=== PATIENT | male | born 1945 | race Caucasian/White ===

== ENCOUNTER → 2016-04-28 | Outpatient (CLI) | payer BC ==
[~2016-04-28] MED LIST: ATOR-24 PO; LEVO125T72 PO; OXYC-57 PO; PSYL58.636 PO; [UNRECOGNIZED DRUG - OTHER] PO; vitamin e PO
[2016-04-28 11:05] LABS: HEMATOCRIT 45.8 % (42-52); MEAN CELL VOLUME 97.2 fL (80-100); MEAN CORPUSCULAR HEMOGLOBIN 33.8 pg (25-34); MEAN CORPUSCULAR HGB CONC 34.7 g/dl (32-36); MEAN PLATELET VOLUME 10.4 fL (7.4-10.4); PLATELET COUNT 202 K/uL (130-400); RED BLOOD COUNT 4.71 M/uL (4.7-6.1); WHITE BLOOD COUNT 3.26 K/uL (4.8-10.8)
[2016-04-28 11:24] LABS: ALT/SGPT 33 U/L (12-78); BLOOD UREA NITROGEN 21 mg/dl (7-18); BUN/CREATININE RATIO 18.7 (10-20); CALCIUM 9.4 mg/dl (8.5-10.1); CARBON DIOXIDE 27 mmol/L (21-32); CHLORIDE 106 mmol/L (98-107); CHOLESTEROL 190 mg/dl (0-200); GLUCOSE 107 mg/dl (70-99); POTASSIUM 4.3 mmol/L (3.5-5.1); SODIUM 142 mmol/L (136-145)
[2016-04-28 11:35] LABS: ALB/GLOB RATIO 1.1 (0.9-2); ALKALINE PHOSPHATASE 76 U/L (45-117); AST/SGOT 18 U/L (15-37); CHOLESTEROL/HDL RATIO 2.5; HDL CHOLESTEROL 77 mg/dl; LDL CHOLESTEROL CALCULATED 98 mg/dl; TRIGLYCERIDES 75 mg/dl (0-150); VERY LOW DENSITY LIPOPROT CALC 15 mg/dl
--- NOTE | 2016-05-03 15:15 | CODING QUERY MEDICAL NECESSITY ---
SUPPORTING DIAGNOSIS NEEDED 45 A supporting diagnosis is required for the test/procedure performed on this patient in order for us to be reimbursed by the patient's insurance. Please provide a supporting diagnosis for the following test/procedure listed below next to the test name along with your signature. *If there is no additional diagnosis for this patient that would support the following test/procedure please document that below next to the test/procedure. DOS 04/28/16 Test(s)/Procedure(s) that require a supporting diagnosis: * VITAMIN D, 25-HYDROXY DIAGNOSIS: Provider Signature: Date: Thank you Teri Payton Health Information Management Once completed, please kindly fax back to [phone] For questions please call [phone]
== END | disposition home or self-care (01) ==
LOC: C.LABBC 08:49
PROVIDERS: ATTEND Internal Medicine Geriatric Medicine
DX: E03.9 Hypothyroidism, unspecified (principal); I10 Essential (primary) hypertension; M19.90 Unspecified osteoarthritis, unspecified site; E78.5 Hyperlipidemia, unspecified

== ENCOUNTER 2016-08-12 06:50 | Day surgery (SDC) | payer BC ==
[2016-08-03 08:51] VITALS: BMI 26.0
--- NOTE | 2016-08-03 09:19 | PAT Medication Instructions ---
Service Date Aug 03, 2016. Current Home Medication List Atorvastatin (Lipitor), 40 MG PO QPM Levothyroxine Sodium (Synthroid), 125 MCG PO QAM Medication Instructions For Your Scheduled Surgery - Take the following medications the morning of surgery with a sip of water: Levothyroxine Sodium (Synthroid), 125 MCG PO QAM - Take the following medications as scheduled the night before surgery: Atorvastatin (Lipitor), 40 MG PO QPM If you have any questions please call us at [phone] or [phone] ( [place]) or [phone]
--- NOTE | 2016-08-03 09:47 | DIAGNOSTIC IMAGING REPORT ---
CHEST PREADMISSION(PA/LAT) CLINICAL HISTORY: PAT preoperative evaluation COMPARISON STUDY: No previous studies for comparison. FINDINGS: The bones soft tissues and hemidiaphragms are normal. The cardiomediastinal silhouette is normal. The lungs are clear. The pulmonary vasculature is normal. IMPRESSION: Negative chest. Electronically signed by: Rhett Carrero M.D. 08/03/2016 9:45 AM Dictated Date/Time: 08/03/2016 9:45 AM
[2016-08-03 09:53] LABS: BASO % 0.6 %; BASO ABS # 0.02 K/uL (0-0.2); COMPLETE YES; EOS % 4.8 %; HEMATOCRIT 43.9 % (42-52); IG% 0.3 %; LYMPH % 34.6 %; LYMPH ABS # 1.16 K/uL (1.2-3.4); MEAN CELL VOLUME 95.6 fL (80-100); MEAN CORPUSCULAR HEMOGLOBIN 33.3 pg (25-34); MEAN CORPUSCULAR HGB CONC 34.9 g/dl (32-36); MEAN PLATELET VOLUME 10.2 fL (7.4-10.4); MONO % 10.4 %; NEUT % 49.3 %; PLATELET COUNT 175 K/uL (130-400); RED BLOOD COUNT 4.59 M/uL (4.7-6.1); WHITE BLOOD COUNT 3.35 K/uL (4.8-10.8)
[2016-08-03 10:43] LABS: BUN/CREATININE RATIO 18.3 (10-20); CALCIUM 8.7 mg/dl (8.5-10.1); CREATININE 0.87 mg/dl (0.60-1.40); POTASSIUM 3.9 mmol/L (3.5-5.1)
[~2016-08-12] VITALS: Ht 177.8 cm; Wt 83.1 kg
[~2016-08-12 06:50] MED LIST changes: +LACTATED RINGER'S 1000ML 1,000 ML IV SCH; -OXYC-57 PO; -PSYL58.636 PO; -[UNRECOGNIZED DRUG - OTHER] PO; -vitamin e PO
[2016-08-12] MEDS ORDERED: PSYL58.636 PO (07:20)
[2016-08-12] MEDS ORDERED: vitamin e PO (07:20)
[2016-08-12] MEDS ORDERED: [UNRECOGNIZED DRUG - OTHER] PO (07:20)
[2016-08-12 07:21] VITALS: BP 153/91; PULSE 55; TEMP 36.5; O2SAT 94; Ht 177.8 cm; Wt 83.1 kg
[2016-08-12] MEDS ORDERED: LACTATED RINGER'S 1000ML 1,000 ML IV PRN (07:46)
[2016-08-12] MEDS ORDERED: KETOROLAC TROMETHAMINE 30 MG/ML VIAL IV. PRN (08:00)
[2016-08-12] MEDS ORDERED: ONDANSETRON INJ 2 MG/ML 2 ML VIAL IV PRN ×2 (08:00→10:30)
[2016-08-12] MEDS ORDERED: MoRPHine SULFATE 10 MG/ML CARP/VIAL IV PRN (08:00)
[2016-08-12] MEDS ORDERED: FENTANYL CITRATE INJ 50 MCG/1 ML 2 ML VIAL IV PRN (08:00)
--- NOTE | 2016-08-12 09:01 | History & Physical Bridge Note ---
H&P Re-Evaluation Bridge Note: I have examined the patient, reviewed the History & Physical and in the interval since the performance of the History & Physical I have noted the following changes of clinical significance: No changes noted pt marked at bedside area already shaved no skin irritation, discussed with pt earlier no mesh he is afraid of triggering autoimmune response from mesh
[2016-08-12] MEDS ORDERED: OXYC-57 PO (09:03)
--- NOTE | 2016-08-12 09:05 | Discharge Instructions ---
Discharge Instructions Date of Service Aug 12, 2016. Visit Reason for Visit: Right Inguinal Hernia Discharge Discharge Diagnosis / Problem: inguinal hrnia repair Discharge Goals Goal(s): Decrease discomfort Activity Recommendations Activity Limitations: as noted below Lifting Limitations: no more than 10 pounds Shower/Bathe: tomorrow Driving or Machine Use: 1 week Anesthesia . Post Anesthesia Instructions: If you have had General Anesthesia or IV Sedation: * Do not drive today. * Resume driving when surgeon permits. * Do not make important decisions or sign legal documents today. * Call surgeon for: 1. Temperature elevations greater than 101 degrees F. 2. Uncontrollable pain. 3. Excessive bleeding. 4. Persistent nausea and vomiting. 5. Medication intolerance (nausea, vomiting or rash). * For nausea and vomiting use only clear liquids such as: tea, soda, bouillon until nausea subsides, then gradually increase diet as tolerated. * If you have any concerns or questions, call your surgeon's office. If physician is unavailable and it is an emergency, call 911 or go to the nearest emergency room. . Instructions / Follow-Up Instructions / Follow-Up Dr. Kong office in 1 week, call [phone] if you do not already have an appt Ice right groin alternating every 20 minutes off and on until bedtime Diet Recommendations Recommended Home Diet: no limitations Pending Studies Studies pending at discharge: no Medical Emergencies . Who to Call and When: Medical Emergencies: If at any time you feel your situation is an emergency, please call 911 immediately. . Non-Emergent Contact Non-Emergency issues call your: Surgeon Call Non-Emergent contact if: you have a fever, temperature is above 101.5, your pain is not controlled, wound has increased redness . . "Provider Documentation" section prepared by Jose Au. . [place] Drug Monitoring Program Search Results: no issues identified
[2016-08-12] MEDS ORDERED: MIDAZOLAM HCL 1 MG/ML 2ML VIAL ONE ×2 (09:07→15:25)
[2016-08-12] MEDS ORDERED: ROCURONIUM BROMIDE 10 MG/ML 5 ML VIAL ONE ×2 (09:07→16:22)
[2016-08-12] MEDS ORDERED: FENTANYL CITRATE INJ 50 MCG/1 ML 2 ML VIAL ONE ×2 (09:07→15:25)
[2016-08-12] MEDS ORDERED: LIDOCAINE HCL 2% 2 ML VIAL (20MG/ML) ONE ×2 (09:07→16:22)
[2016-08-12] MEDS ORDERED: NEOSTIGMINE METHYLSULFATE 5 MG/5 ML SYR ONE (09:07)
[2016-08-12] MEDS ORDERED: PROPOFOL IV EMULSION 10 MG/ML 20 ML VIAL IV ONE ×2 (09:07→16:22)
[2016-08-12] MEDS ORDERED: GLYCOPYRROLATE INJ 0.2 MG/ML VIAL ONE (09:07)
[2016-08-12] MEDS ORDERED: BACITRACIN 50000 UNIT VIAL ONE (09:15)
[2016-08-12] MEDS ORDERED: BUPIVACAINE 0.5 % 5 MG/1 ML MPF 30ML VIAL ONE (09:15)
[2016-08-12] MEDS ORDERED: KETOROLAC TROMETHAMINE 30 MG/ML VIAL ONE (10:04)
[2016-08-12] MEDS ORDERED: LACTATED RINGER'S 1000ML 1,000 ML IV SCH (10:17)
--- NOTE | 2016-08-12 10:18 | [facility] Post Operative Brief Note ---
Immediate Operative Summary Operative Date Aug 12, 2016. Pre-Operative Diagnosis Right inguinal hernia Post-Operative Diagnosis Right inguinal hernia direct Procedure(s) Performed Open Right Inguinal Hernia Repair(jitendra) Surgeon Dr. Hi Fuentes Sponsorship Coordinator Surgeon(s) Jose Au PA-C Estimated Blood Loss 5ML Findings large direct defect Specimens None per surgeon
[2016-08-12] MEDS ORDERED: OXYCODONE/ACETAMINOPHEN 5-325 TAB PO PRN (10:30)
[2016-08-12] MEDS ORDERED: MoRPHine SULFATE 4 MG/ML 1 ML CARP\\VIAL IV PRN (10:30)
--- NOTE | 2016-08-12 10:43 | OPERATIVE REPORT ---
DATE OF OPERATION: 08/12/2016 PREOPERATIVE DIAGNOSIS: Symptomatic right inguinal hernia. POSTOPERATIVE DIAGNOSIS: Same with large direct defect. PROCEDURE: Repair right direct inguinal hernia (Bassini repair). SURGEON: Dr. Fuentes. PAPER CARRIER: Roderick Au PA-C. OPERATION AND FINDINGS: SUMMARY: The patient was brought into the operating room theater. The right lower quadrant was prepped with Betadine solution and properly draped. We made an incision parallel to the inguinal ligament, deepened through subcutaneous tissue onto the external oblique. Local anesthetic was used underneath the external oblique, which was opened along the course of its fibers to the external ring where we identified a very chronically incarcerated tissue at the external ring. We dissected it out and actually the ilioinguinal nerve which was a fine brand, very thin was encapsulated in the scar tissue. Rather than save it eventually we would just sacrifice it. At this point, once we freed this, we elevated the cord and its structures and identified the patient had a direct hernia. We freed that from the cord structures all the way down to the internal ring. We checked for an indirect defect. The patient had fibrous band going down along the cord structures which may be a remnant of the indirect sac, we just basically ligated and divided this. At this point the patient did not want any mesh placement in the hernia suspicious that it may trigger an autoimmune response problem, therefore we identified the transversalis fascia and did a Bassini repair bringing together the shelving portion of the inguinal ligament to the transversalis fascia with interrupted 0 silk sutures. We then reconstructed the internal ring sufficient enough. The fascia here was a little bit weaker, but we were able to close some conjoined tendon around the internal ring. We put some sutures even lateral to the opening that could only accommodate the tip of a hemostat. The patient was under general anesthetic, but then I elected to make a relaxing incision on top of the rectus abdominis in a curvilinear fashion. The repair appeared to be quite solid repair. We checked the area for hemostasis, appeared satisfactory. We closed the wound with 3-0 silk suture to reconstruct the external ring, placing the cord underneath the external oblique, subcutaneous tissue 2-0 Dexon and zari for skin edges. Dressing was applied. The procedure was tolerated well by the patient. Estimated blood loss approximately 5 mL. The patient was taken to recovery room in good condition. I attest to the content of the Intraoperative Record and any orders documented therein. Any exceptions are noted below. MTDD
--- NOTE | 2016-08-12 10:50 | Anesthesiology Progress Note ---
Anesthesia Post Op Note Date & Time Aug 12, 2016 at 10:49 Vital Signs Pain Intensity: 0 Vital Signs Past 12 Hours Date Time Temp Pulse Resp B/P Pulse Ox O2 Delivery O2 Flow Rate FiO2 08/12/16 10:40 43 16 149/89 100 Mask 10 08/12/16 10:30 44 16 164/91 100 Mask 10 08/12/16 10:23 36 49 16 164/94 96 Mask 10 08/12/16 07:21 36.5 55 18 153/91 94 Room Air Notes Mental Status: alert / awake / arousable, participated in evaluation Pt Amnestic to Procedure: Yes Nausea / Vomiting: adequately controlled Pain: adequately controlled Airway Patency, RR, SpO2: stable & adequate BP & HR: stable & adequate Hydration State: stable & adequate Anesthetic Complications: no major complications apparent Pt doing well.
[2016-08-12 11:00] VITALS: BP 154/84; PULSE 56; TEMP 36.6; O2SAT 94
[2016-08-12 11:35] VITALS: BP 148/89; PULSE 44; O2SAT 96
[2016-08-12 12:05] VITALS: BP 155/91; PULSE 44; TEMP 36.4; O2SAT 97
[2016-08-12] MEDS ORDERED: SUCCINYLCHOLINE CHLORIDE 20 MG/ML 10 ML VIAL IV ONE (16:22)
[2016-08-12] MEDS ORDERED: EpHEDrine SULFATE INJ 50 MG/ML AMP ONE (16:22)
[2016-08-12] MEDS ORDERED: DEXAMETHASONE SOD INJ 4 MG/ML VIAL ONE (16:22)
[2016-08-12] MEDS ORDERED: CEFAZOLIN SOD 1 GM VIAL ONE (16:22)
[2016-08-12] MEDS ORDERED: ONDANSETRON INJ 2 MG/ML 2 ML VIAL ONE (16:22)
== END 2016-08-12 12:30 | disposition home or self-care (01) ==
LOC: C.ACU 06:50
PROVIDERS: ATTEND Surgery
DX: K40.90 Unilateral inguinal hernia, without obstruction or gangrene, not specified as recurrent (principal); M19.90 Unspecified osteoarthritis, unspecified site; E78.5 Hyperlipidemia, unspecified; I10 Essential (primary) hypertension; E03.9 Hypothyroidism, unspecified; Z96.642 Presence of left artificial hip joint; Z82.49 Family history of ischemic heart disease and other diseases of the circulatory system

== ENCOUNTER 2016-08-12 15:47 | Emergency (ER) | payer BC ==
[~2016-08-12] VITALS: Ht 177.8 cm; Wt 85.0 kg
[~2016-08-12 15:47] MED LIST changes: -LACTATED RINGER'S 1000ML 1,000 ML IV SCH; +OXYC-57 PO; +PSYL58.636 PO; +[UNRECOGNIZED DRUG - OTHER] PO; +vitamin e PO
[2016-08-12 15:53] VITALS: Ht 177.8 cm; Wt 85.0 kg
[2016-08-12 16:06] LABS: BASO % 0.2 %; BASO ABS # 0.02 K/uL (0-0.2); COMPLETE YES; EOS % 0.6 %; HEMATOCRIT 39.1 % (42-52); IG% 0.2 %; LYMPH % 9.4 %; LYMPH ABS # 1.05 K/uL (1.2-3.4); MEAN CELL VOLUME 98.5 fL (80-100); MEAN CORPUSCULAR HEMOGLOBIN 33.5 pg (25-34); MEAN PLATELET VOLUME 9.7 fL (7.4-10.4); MONO % 8.3 %; NEUT % 81.3 %; PLATELET COUNT 183 K/uL (130-400); RED BLOOD COUNT 3.97 M/uL (4.7-6.1); WHITE BLOOD COUNT 11.22 K/uL (4.8-10.8)
[2016-08-12] MEDS ORDERED: LACTATED RINGER'S 1000ML 1,000 ML IV SCH (16:46)
[2016-08-12] MEDS ORDERED: MoRPHine SULFATE 4 MG/ML 1 ML CARP\\VIAL IV PRN (17:00)
[2016-08-12] MEDS ORDERED: ONDANSETRON INJ 2 MG/ML 2 ML VIAL IV PRN (17:00)
[2016-08-12] MEDS ORDERED: OXYCODONE/ACETAMINOPHEN 5-325 TAB PO PRN (17:00)
--- NOTE | 2016-08-12 17:00 | [facility] Post Operative Brief Note ---
Immediate Operative Summary Operative Date Aug 12, 2016. Pre-Operative Diagnosis post op bleeding s/p open right ing hernia repair(jitendra) Post-Operative Diagnosis same form inferior epigastric vein and generalized oozing Procedure(s) Performed evacUATION HEMAOTOMA RIGHT ING CANAL AND SCROTUM Surgeon alba Post Anesthesia Room Nurse Surgeon(s) barbara rhodes Estimated Blood Loss 50 Findings generalized oozing but more specific loc bleeding from inf epigastric vein Drains 1/2inch raman scrotal area
[2016-08-12 18:10] VITALS: BP 152/91; PULSE 55; TEMP 36.4; O2SAT 98
[2016-08-12] MEDS ORDERED: IV FLUIDS COMPLETED PRN (19:00)
[2016-08-13] MEDS ORDERED: LEVOTHYROXINE 125 MCG TAB PO SCH (07:00)
== END 2016-08-12 15:57 | disposition still patient (30) ==
LOC: EDBD 15:47 → C.EDC 15:48
DX: R58 Hemorrhage, not elsewhere classified (principal)

== ENCOUNTER 2016-08-12 17:50 | Observation (INO) | payer BC ==
[~2016-08-12] VITALS: Ht 177.8 cm; Wt 86.0 kg
[2016-08-12] VITALS (7 sets, daily range): BP systolic 127–152; BP diastolic 73–91; PULSE 55–63; TEMP 36.1–36.9; O2SAT 92–99; Ht 177.8 cm; Wt 86.0 kg
--- NOTE | 2016-08-12 15:53 | History & Physical Bridge Note ---
H&P Re-Evaluation Bridge Note: I have examined the patient, reviewed the History & Physical and in the interval since the performance of the History & Physical I have noted the following changes of clinical significance: No changes noted events since pt d/ c from hernia repair this am dictated at 3:40 pm ext [id number] confirmation number [id number], plan emergency exploration for post op bleeding in groin
--- NOTE | 2016-08-12 16:22 | HISTORY & PHYSICAL EXAMINATION ---
DATE OF ADMISSION: 08/12/2016 SUMMARY: This is a 70-year-old gentleman who about 9:00 this morning we repaired a right inguinal hernia and a Bassini repair without mesh, went uneventful, was discharged about 10:00 in the morning or so without any issues, was home then they called approximately at 1:30 in the afternoon that he was having some bleeding from the right groin area and his scrotum was enlarging. This happened kind of suddenly after getting out of car. Therefore , I saw him in the office at that time where on evaluation, he had a hematoma in his right groin extending into the scrotum, which did not seem to be tense at all. At this point, I took a few zari out to see if we can evacuate this hematoma and it seemed to be a continuous venous bleeder, held pressure on it, but without any success; therefore, I packed it and applied the pressure dressing, call the operating room at approximately 2:50 that would recommend that the patient be explored in the surgery to control the bleeding. At that time, arrangements were made to bring the patient over to the hospital. Initially, the patient wanted to come by a car, he felt he could do that, I was on my way to the hospital where I got a call in the office saying they wanted to go by ambulance. I came by the Emergency Room talked with the claims customer service representative in the ER about this gentleman was supposed to come in by ambulance and to sent him straight the same day admit, to take him to surgery. At about 3:35 I was told that the patient could not come straight to the same day surgery because of the policy they could not come to same day surgery, if it is a hemorrhage they needed to go straight to the operating room. At this time, it is 3:50, I am still waiting for the patient to come in and we will take him straight to the operating room. Apparently by policy, the patient that comes in by ambulance cannot come straight to the same day admit unless the ER physician sees it or I needed to go to ER and see him personally even though I saw him personally minor 1/2 before. I did see the patient in the office and I was trying to arrange things here in the operating room to expedite things. At the present time, we are still waiting for the patient. INES
--- NOTE | 2016-08-12 17:43 | Anesthesiology Progress Note ---
Anesthesia Post Op Note Date & Time Aug 12, 2016 at 17:42 Vital Signs Pain Intensity: 0 Vital Signs Past 12 Hours Date Time Temp Pulse Resp B/P Pulse Ox O2 Delivery O2 Flow Rate FiO2 08/12/16 17:29 36.5 49 16 145/86 100 Nasal Cannula 2 08/12/16 17:20 52 16 169/83 100 Nasal Cannula 2 08/12/16 17:10 52 18 142/72 99 Mask 10 08/12/16 17:00 59 18 136/84 100 Mask 10 08/12/16 16:51 36.1 63 16 133/79 98 Mask 10 Notes Mental Status: alert / awake / arousable, participated in evaluation Pt Amnestic to Procedure: Yes Nausea / Vomiting: adequately controlled Pain: adequately controlled Airway Patency, RR, SpO2: stable & adequate BP & HR: stable & adequate Hydration State: stable & adequate Anesthetic Complications: no major complications apparent
[~2016-08-12 17:50] MED LIST changes: +ATROPINE SULFATE 0.1 MG/ML 5ML SYR IV PRN; +BACITRACIN 50000 UNIT VIAL ONE; +BUPIVACAINE 0.5 % 5 MG/1 ML MPF 30ML VIAL ONE; +EpHEDrine SULFATE INJ 50 MG/ML AMP IV PRN; +FENTANYL CITRATE INJ 50 MCG/1 ML 2 ML VIAL IV PRN; +HYDROmorphone INJ 1 MG/ML SYR IV PRN; +LACTATED RINGER'S 1000ML 1,000 ML IV SCH; +ONDANSETRON INJ 2 MG/ML 2 ML VIAL IV PRN; +OXYCODONE/ACETAMINOPHEN 5-325 TAB PO PRN; +SURGICEL ABSORB HEMOSTAT 2IN X 14IN TOP ONE
[2016-08-12] MEDS ORDERED: OXYCODONE/ACETAMINOPHEN 5-325 TAB PO PRN (18:00)
[2016-08-12] MEDS ORDERED: HYDROmorphone INJ 1 MG/ML SYR IV PRN (18:00)
[2016-08-12] MEDS ORDERED: IV FLUIDS COMPLETED PRN (18:30)
[2016-08-12] MEDS: LACTATED RINGER'S 1000ML 1,000 ML IV SCH (20:12)
--- NOTE | 2016-08-12 23:15 | OPERATIVE REPORT ---
DATE OF OPERATION: 08/12/2016 SURGEON: Dr. Fuentes. PLASTERER ROUGH: Roderick Au PA-C. PREOPERATIVE DIAGNOSIS: Postop bleeding from the right inguinal hernia repair (Bassini repair). POSTOPERATIVE DIAGNOSIS: Same, generalized oozing and bleeding from the inferior epigastric vessels. PROCEDURE: Exploration of right groin, evacuation of hematoma, control of bleeding. SUMMARY: The patient was brought into the operating room theater, general anesthetic. The right lower quadrant had been prepped after we took the dressing that we had placed in the office. In the office, I tried to evacuate this hematoma which appeared to be nonexpanding, but we were met with some oozing from the mid portion of the incision. Being this oozing, I just packed it in anticipation to take him to surgery. we had applied pressure dressing on the outside. Once we were in the operating room, we took the dressing off and there was no oozing from the packing itself. At this point, we used Betadine solution and prepped extensively in the scrotal area. [place] were removed, the packing was removed. The area was then evacuated off a hematoma. There was some subcutaneous hematoma but most of it was when we went onto the external oblique fascia. The lateral aspect of the external oblique fascia where we had closed over the cord was opened and we could see some hematoma formation and clots in that area. We opened up completely the external oblique as we had closed it with interrupted silk sutures, and once we elevated the cord and the structures, we freed up all the hematoma and clots from that area and evacuated the one from the scrotal area. At this point, we did not see any active bleeding, although just generalized oozing. We irrigated the area copiously to try to get the operative site free of any cloths and visualized the operative field more extensively. Once we had done this, we localized that in the internal ring area, there was 1 suture that we had closed the internal ring, and elevating the cord structures, we could see some bleeding coming from the suture, it was the most proximal suture in the internal ring. As we opened that, I could see that there was a small vein, probably either an inferior epigastric vein or a branch of it that was linearly cut. This is probably from the suture that may have pulled away on it and actively caused the bleeding. This was the only site of bleeding that we could account for in all exploration. We ligated this area. I did unroof and took up more of the sutures from the Bassini repair so we could go toward the symphysis pubis and I did not see any active bleeding underneath that area. We then closed this again with interrupted 0 silk suture, paying attention to close the internal ring. We evacuated the scrotal area copiously. There were few fibers just distal to the external ring that we ligated with 2-0 silk suture. We also went underneath the external oblique where we had done a relaxing incision on the rectus, there was no oozing appreciated there, but I did place a piece of Surgicel in that area. I also placed a piece of Surgicel down in the canal and elected to drain the scrotal area with a small quarter-inch to half inch incision and placed a [place] that we had used to elevate the cord structures along underneath the external oblique fascia and coming out the scrotal area, attached to skin edge with 2-0 silk. The area was then again checked for hemostasis, quite satisfactory, and closed with continuous 2-0 Vicryl subcutaneously, zari for skin edges. Local anesthetic was used to place in the operative field. The procedure was tolerated well by the patient. Estimated blood loss approximately 50 mL. The patient was taken to recovery room in good condition. I attest to the content of the Intraoperative Record and any orders documented therein. Any exceptions are noted below. INES
[2016-08-13] MEDS: LACTATED RINGER'S 1000ML 1,000 ML IV SCH ×2 (02:40→09:28)
[2016-08-13 07:07] LABS: BASO % 0.1 %; BASO ABS # 0.01 K/uL (0-0.2); COMPLETE YES; HEMATOCRIT 33.4 % (42-52); IG% 0.2 %; LYMPH % 10.2 %; LYMPH ABS # 0.93 K/uL (1.2-3.4); MEAN CELL VOLUME 97.9 fL (80-100); MEAN CORPUSCULAR HEMOGLOBIN 33.1 pg (25-34); MEAN CORPUSCULAR HGB CONC 33.8 g/dl (32-36); MEAN PLATELET VOLUME 9.8 fL (7.4-10.4); MONO % 9.8 %; NEUT % 79.7 %; PLATELET COUNT 155 K/uL (130-400); RED BLOOD COUNT 3.41 M/uL (4.7-6.1)
--- NOTE | 2016-08-13 07:33 | SURGERY PROGRESS NOTE ---
DATE: 08/13/2016 Harpal is fairly comfortable. Surgery from yesterday was explained to the patient including its findings. His last vitals showed him a temperature of 36.9, pulse 61, respirations 16, blood pressure 136/73, O2 sats 94 on room air. He is having virtually no pain. Laboratory finding is pending. The abdomen is benign. The dressing is slightly saturated in the scrotal area which is soft. He has a [place] drain, just slightly bloody drainage. At this point, we will await the lab, the patient and looks fine, he will probably be able to go home today. We will check him later on today and remove the Jake. Instructions were given to him regarding followup in approximately 1 week. He can shower and also do not lift anything heavier than 10 pounds and restrict him somewhat on his activity. INES
[2016-08-13 07:54] VITALS: O2SAT 94
[2016-08-13 08:01] VITALS: BP 158/79; PULSE 65; TEMP 36.5; O2SAT 95
--- NOTE | 2016-08-13 08:22 | Anesthesiology Progress Note ---
Anesthesia Post Op Note Date & Time Aug 13, 2016 at 08:21 Vital Signs Pain Intensity: 0.0 Vital Signs Past 12 Hours Date Time Temp Pulse Resp B/P Pulse Ox O2 Delivery O2 Flow Rate FiO2 08/13/16 08:01 36.5 65 18 158/79 95 Room Air 08/13/16 07:54 94 Room Air 08/12/16 23:42 Room Air 08/12/16 23:03 36.9 61 16 136/73 94 Room Air 08/12/16 21:10 36.7 63 18 127/82 92 Room Air Notes Mental Status: alert / awake / arousable, participated in evaluation Pt Amnestic to Procedure: Yes Nausea / Vomiting: adequately controlled Pain: adequately controlled Airway Patency, RR, SpO2: stable & adequate BP & HR: stable & adequate Hydration State: stable & adequate Anesthetic Complications: no major complications apparent
--- NOTE | 2016-08-13 09:55 | Discharge Instructions ---
Discharge Instructions Date of Service Aug 13, 2016. Admission Reason for Admission: Inguinal Post-op Site Bleed Discharge Discharge Diagnosis / Problem: wound exploration, evacuation of hematoma Discharge Goals Goal(s): Decrease discomfort Activity Recommendations Activity Limitations: as noted below Lifting Limitations: no more than 10 pounds Shower/Bathe: no limitations (ok to shower) Driving or Machine Use: resume 3 days after discharge . Instructions / Follow-Up Instructions / Follow-Up Dr. Fuentes's office next week as planned Current Hospital Diet Patient's current hospital diet: Regular Diet Discharge Diet Recommended Diet: Regular Diet Procedures Procedures Performed: Right inguinal hernia controlled postop hemorrhage Pending Studies Studies pending at discharge: no Medical Emergencies . Who to Call and When: Medical Emergencies: If at any time you feel your situation is an emergency, please call 911 immediately. . Non-Emergent Contact Non-Emergency issues call your: Surgeon Call Non-Emergent contact if: you have a fever, temperature is above 101.5, your pain is not controlled, wound has increased drainage, wound has increased redness . "Provider Documentation" section prepared by Jose Au. . VTE Core Measure Inpt VTE Proph given/why not?: SCD's
[2016-08-13 10:49] VITALS: BP 158/79; PULSE 65; TEMP 36.5; O2SAT 95
--- NOTE | 2016-08-17 14:41 | DISCHARGE SUMMARY ---
PRIMARY DISCHARGE DIAGNOSIS: Postoperative bleeding following right inguinal hernia repair. SECONDARY DISCHARGE DIAGNOSES: 1. Hypertension. 2. Hypothyroidism. PROCEDURE PERFORMED: Exploration of right groin, evacuation of hematoma and control of bleeding. HOSPITAL COURSE: The patient is a 70-year-old male who underwent repair of right inguinal hernia (Bassini repair) in the morning. He was discharged to home. Once at home, he felt a pull in his groin, developed swelling in the scrotum and groin. He was seen in the office, where hematoma was identified and he was referred back to the hospital and was taken through the Emergency Room back to the operating room for exploration, evacuation of hematoma, control bleeding. He was admitted to the surgical floor for overnight observation. On postoperative day 1, he was doing well. He had minimal drainage from a [place] drain which was removed. He was tolerating diet and oral analgesics. He was stable for discharge. DISCHARGE INSTRUCTIONS: Discharge home. Follow up with Dr. Fuentes's office in 5 days. DISCHARGE MEDICATIONS: Resume Percocet 1-2 tablets every 4 hours as needed, Synthroid 125 mcg daily, Lipitor 40 mg daily, Metamucil fiber daily, vitamin E and D supplements.
== END 2016-08-13 11:19 | disposition home or self-care (01) ==
LOC: ENRESERVTM → ENRESERVDT → C.ACU 17:50 → C.MSW 17:51
PROVIDERS: ADMIT Surgery; ATTEND Surgery
DX: L76.32 Postprocedural hematoma of skin and subcutaneous tissue following other procedure (principal)

== ENCOUNTER → 2016-09-20 | Outpatient (CLI) | payer BC ==
[~2016-09-20] MED LIST changes: -ATROPINE SULFATE 0.1 MG/ML 5ML SYR IV PRN; -BACITRACIN 50000 UNIT VIAL ONE; -BUPIVACAINE 0.5 % 5 MG/1 ML MPF 30ML VIAL ONE; -EpHEDrine SULFATE INJ 50 MG/ML AMP IV PRN; -FENTANYL CITRATE INJ 50 MCG/1 ML 2 ML VIAL IV PRN; -HYDROmorphone INJ 1 MG/ML SYR IV PRN; -LACTATED RINGER'S 1000ML 1,000 ML IV SCH; -ONDANSETRON INJ 2 MG/ML 2 ML VIAL IV PRN; -OXYCODONE/ACETAMINOPHEN 5-325 TAB PO PRN; -SURGICEL ABSORB HEMOSTAT 2IN X 14IN TOP ONE
[2016-09-29 20:52] LABS: APTT 32 sec (22-34); F8 ACT 74 % (50-180); RISTOCETIN COFACTOR** 4459X 56 % (42-200)
== END | disposition home or self-care (01) ==
LOC: C.LABBC 08:20
PROVIDERS: ATTEND Internal Medicine Geriatric Medicine
DX: T14.8 Other injury of unspecified body region (principal); X58.XXXA Exposure to other specified factors, initial encounter

== ENCOUNTER 2024-04-09 19:41 | Inpatient (IN) ==
--- NOTE | 2024-04-09 20:23 | Emergency Department Note ---
Impression & Plan Near syncope, S/P TAVR (transcatheter aortic valve replacement) ED Provider Note NAME: DINESH PATRICIA AGE: 78 SEX: M : 1945 ARRIVES VIA: Walk-In INFORMANT: [Patient][] ED PROVIDER(S): [Sly Wu MD] CHIEF COMPLAINT: Cardiac assessment HISTORY OF PRESENT ILLNESS: The patient is a 78-year-old male who had a TAVR performed last , 4 days ago. He was discharged from the hospital 3 days ago. The patient did have a temporary pacemaker and as per his but, the heart rhythm was not really any issue and thus, it was discontinued. He is wearing a software application tester. The patient states that today, he has been feeling dizzy intermittently. He had a brief syncopal spell, this lasted for a few seconds. No chest pain, no dyspnea. He was called by the people who are in charge of his monitor and he was told that he had an AV block and that he would likely need a pacemaker. He was on his way to [place] however, he was concerned about making the longer drive and he presents to our ER. Of note, patient's brother had a very similar operation and required pacemaker placement. PMHx/PSHx/Social Hx: See Below PHYSICAL EXAM: GENERAL: Patient is in no acute distress. HEENT: No acute trauma, normocephalic atraumatic, mucous membranes moist, no nasal congestion. NECK: No stridor, no adenopathy, no meningismus, trachea is midline. LUNGS: Clear to auscultation bilaterally, no wheeze, no rhonchi, breath sounds equal. HEART: Without murmurs gallops or rubs, regular rate and rhythm. ABDOMEN: Soft, nontender, no peritonitis. EXTREMITIES: No cyanosis, full range of motion of all the joints without pain or difficulty. NEUROLOGIC: Oriented x 3, no acute motor or sensory deficits, no focal weakness. SKIN: No jaundice, no diaphoresis. DIFFERENTIAL DIAGNOSIS: Dysrhythmia, AV block, medication reaction, NM, electrolyte imbalance, among others. EMERGENCY DEPARTMENT PROCEDURES: MEDICAL DECISION MAKING: There is no leukocytosis or concerning anemia. The patient does have a somewhat low platelet count at 110. No coagulopathy. No electrolyte abnormality in need of emergent correction. No renal failure. No concerning liver enzyme elevation. TSH was slightly low however, the T4 was normal. ECG shows a sinus rhythm with a first-degree AV block, no dysrhythmia. Cardiac enzyme testing x 2 is slightly elevated however, the value is actually decreasing and very likely a result of his recent TAVR rather than cardiac ischemia. Chest x-ray does not show CHF or pneumonia. On exam, the patient was without complaints and resting comfortably. I did speak with Dr. Miller of cardiology. The patient is to be hospitalized for monitoring. He may require a pacemaker if a significant dysrhythmia or block is detected. The patient is aware of the need for a hospital stay. I did speak with case management and the on-call hospitalist. Prior/Outside records/notes reviewed: None ECG per my interpretation: Indication was dizziness. The ECG shows a sinus rhythm with a first-degree AV block and an incomplete right bundle branch block. The rate is 67. There is no acute ST elevation. There is poor R wave progression with a potential old septal infarct. QTc is 441. Continuous Cardiac Monitoring per my interpretation: An order was placed for continuous cardiac monitoring. The monitor shows a rate of 65 with sinus rhythm with a first-degree block. Imaging/x-ray results per my interpretation: Chest x-ray does not show mediastinal widening, CHF or pneumonia. Chronic Medical/Social conditions affecting care: Recent TAVR. Care/Management discussed with: On-call cardiology-Dr. Miller. Case management and the on-call hospitalist. Level of care consideration(s): After review of the information above and other included data: --I believe the patient requires escalation of care to admission DISPOSITION: Admission Past Med/Surg History Problem List (Updated 04/09/24 @ 23:07 by Sly Wu MD) S/P TAVR (transcatheter aortic valve replacement) (Acute) Near syncope (Acute) Erectile dysfunction Benign prostatic hyperplasia with urinary obstruction and other lower urinary tract symptoms (Acute) Medical History Chronic sinusitis Nasal septal deviation History of COVID-19 (07/2023) Symptoms resolved Chronic osteoarthritis Aortic stenosis Echo 02/09/24: Severe aortic stenosis (AVAI 0.55cm2, AV MG 42mmhg) Follows with Dr. Mensah Moderate obstructive sleep apnea Not currently using any device, unable to tolerate CPAP GERD (gastroesophageal reflux disease) Hypothyroidism History of radioactive iodine thyroid ablation Bruxism HLD (hyperlipidemia) HTN (hypertension) Psoriasis Surgical History (Updated 04/09/24 @ 23:07 by Sly Wu MD) History of colonoscopy History of evacuation of hematoma Groin S/P knee surgery Right S/P inguinal hernia repair S/P hip replacement Left S/P cataract surgery Family History Father Acute myocardial infarction Hypertension Cardiac disorder Sister Thyroid disorder Son Epilepsy Daughter Von Willebrand disease, type I Other Myocardial infarction Denies family history of Ovarian cancer Prostate cancer Breast cancer Lung cancer Colorectal cancer Social History Smoking Status: Light tobacco smoker Second Hand Exposure: No; Do You Dip or Chew Tobacco: No; Hx Alcohol Use: Yes Alcohol type: beer Alcohol Intake Frequency: 4 or More x per/Week Hx Substance Use: No Preferred Language: Bengali Communication Ability: Effective Visual Impairment: Limited Hearing Ability: Normal Director Ship Required: No Beliefs That Will Affect Care: None marital status: Current Living Situation: Spouse current occupational status: employed and retired 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 How many Children do You have: 3 Feels Safe at Home: Yes Childhood Exposure to Second-Hand Smoke: Yes (father smoked cigars ) Diet: regular caffeine: Yes Dental Care, Regularly: Yes Physical Activity Frequency: Daily Physical Activity Frequency Comment: bicycles/walk Seatbelt Use: always Sunscreen Use: Yes (sometimes) Assistive Devices: Glasses Allergies Allergies Allergy/AdvReac Type Severity Reaction Status Date / Time No Known Drug Allergies Allergy Verified 03/28/24 08:29 Home Meds Home Medications Medication Instructions Recorded Confirmed rosuvastatin 20 mg tablet 20 mg PO DAILY 02/15/24 03/28/24 Previous Rx's Medication Instructions Recorded sildenafil 50 mg tablet See Rx Instructions .Route 05/30/23 .COMPLEX #6 tabs amlodipine 5 mg tablet 5 mg PO QAM #90 tabs 10/13/23 levothyroxine 125 mcg tablet 125 mcg PO QAM #90 tabs 01/09/24 amoxicillin 875 mg tablet 875 mg PO BID 5 days #10 tabs 03/28/24 Results & Data (ED) Vital Signs Vital Signs - 24 hr 04/09/24 19:44 04/09/24 20:00 04/09/24 20:02 Temperature 36.4 C L Temperature Source Temporal Artery Scan Pulse Rate 72 65 Pulse Rate [Apical] Respiratory Rate 16 Respiratory Effort / Characteristics Non-Labored Spontaneous Respiratory Depth Normal Respiratory Pattern Blood Pressure 162/92 H Blood Pressure [Right Arm] Blood Pressure Mean 115 Blood Pressure Mean [Right Arm] Pulse Oximetry 98 95 Oxygen Delivery Method Room Air Room Air Sepsis Recent Fever Within 48 Hours No Sepsis New/Unexplained Change in Mental Status No Sepsis Action Taken by Nursing No Action Required 04/09/24 20:38 04/09/24 22:00 04/09/24 22:51 Temperature Temperature Source Pulse Rate 72 Pulse Rate [Apical] 66 65 Respiratory Rate 16 18 18 Respiratory Effort / Characteristics Non-Labored Spontaneous Non-Labored Spontaneous Respiratory Depth Normal Normal Respiratory Pattern Regular Regular Blood Pressure 144/118 H Blood Pressure [Right Arm] 149/81 H 156/86 H Blood Pressure Mean Blood Pressure Mean [Right Arm] 103 109 Pulse Oximetry 97 97 94 Oxygen Delivery Method Room Air Room Air Room Air Sepsis Recent Fever Within 48 Hours Sepsis New/Unexplained Change in Mental Status Sepsis Action Taken by Shelter Medications Current Medication List: was personally reviewed by me Laboratory Data Attestation: I reviewed the patient's lab results. 04/09/24 20:11 04/09/24 20:11 Lab Results 04/09/24 04/09/24 04/09/24 Range/Units 20:11 20:49 22:20 WBC 4.05 L (4.8-10.8) K/ul RBC 4.60 L (4.70-6.10) M/uL Hgb 15.3 (14.0-18.0) g/dl Hct 44.3 (42.0-52.0) % MCV 96.3 (80.0-100.0) fL MCH 33.3 (25.0-34.0) pg MCHC 34.5 (32.0-36.0) g/dL RDW Std Deviation 46.6 H (36.4-46.3) fL RDW Coeff of Stephania 13.2 (11.5-14.5) % Plt Count 110 L (130-400) K/uL MPV 10.4 (9.4-12.4) fL Immature Gran % (Auto) 0.2 % Neut % (Auto) 48.9 % Lymph % (Auto) 31.1 % [place] % (Auto) 14.8 % Eos % (Auto) 4.0 % Baso % (Auto) 1.0 % Neut # (Auto) 1.98 (1.40-6.50) K/uL Lymph # (Auto) 1.26 (1.20-3.40) K/uL [place] # (Auto) 0.60 H (0.11-0.59) K/uL Eos # (Auto) 0.16 (0.00-0.50) K/uL Baso # (Auto) 0.04 (0.00-0.20) K/uL Immature Gran # (Auto) 0.01 (0.01-0.20) K/uL PT 10.2 (9.0-12.0) Seconds INR 0.9 (0.9-1.1) APTT 31 (21-31) Seconds PTT Ratio 1.2 Sodium 139 (136-145) mmol/L Potassium 4.0 (3.5-5.1) mmol/L Chloride 104 (98-107) mmol/L Carbon Dioxide 27 (21-32) mmol/L Anion Gap 8 (3-11) BUN 21 (6-23) mg/dl Creatinine 0.87 (0.6-1.4) mg/dl Est Cr Clr Drug Dosing 72.3 ml/min eGFR 88.32 BUN/Creatinine Ratio 24.1 H (10-20) Glucose 95 (70-99(Fasting)) mg/dl Calcium 9.6 (8.6-10.3) mg/dl Magnesium 2.1 (1.7-2.4) mg/dl Total Bilirubin 0.8 (0.2-1.0) mg/dl AST 24 (13-39) U/L ALT 19 (7-52) U/L Alkaline Phosphatase 74 (34-104) U/L Troponin I High Sens 24.5 H 20.8 H (0-20) pg/ml Total Protein 7.4 (6.0-8.3) gm/dl Albumin 4.4 (3.4-5.0) gm/dl Globulin 3.0 (2.5-4.0) gm/dl Albumin/Globulin Ratio 1.5 (0.9-2) TSH 0.176 L (0.300-4.500) uIu/ml Free T4 1.33 (0.61-1.60) ng/dl Urine Color Yellow Urine Appearance Clear (Clear) Urine pH 5.5 (4.5-7.5) Ur Specific [place] 1.019 (1.000-1.030) Urine Protein Negative (Negative) Urine Glucose (UA) Negative (Negative) Urine Ketones Negative (Negative) Urine Blood Negative (Negative) Urine Nitrite Negative (Negative) Urine Bilirubin Negative (Negative) Urine Urobilinogen Negative (Negative) Ur Leukocyte Esterase Negative (Negative) Discharge Plan Visit Data Chief Complaint: Cardiac Assessment Stated Complaint: EPISODES, ARORTIC VALVE REPLACED ED Provider: Sly Wu Discharge Problem: Near syncope, S/P TAVR (transcatheter aortic valve replacement) Patient Disposition: Admitted As Inpatient Condition: Fair Discharge Instructions Interventions: ED Discharge Assessment Last Done: 04/09/24 22:51 Forms Stand Alone Forms: [facility] [employer] Prescriptions Prescriptions: No Action sildenafil 50 mg tablet See Rx Instructions .ROUTE .COMPLEX Qty: 6 5RF Dose Instruction: TAKE 1 TAB DAILY NEEDED FOR SEXUAL ACTIVITY Rx Instructions: TAKE 1 TAB DAILY NEEDED FOR SEXUAL ACTIVITY amlodipine 5 mg tablet 5 mg PO QAM Qty: 90 3RF levothyroxine 125 mcg tablet 125 mcg PO QAM Qty: 90 1RF rosuvastatin 20 mg tablet 20 mg PO DAILY amoxicillin 875 mg tablet 875 mg PO BID 5 Days Qty: 10 0RF Referrals Referrals: Tirso Keane DO [Primary Care Provider] -
[2024-04-09 20:30] LABS: Basophils # (auto) 0.04 K/uL (0.00-0.20); Eosinophils # (auto) 0.16 K/uL (0.00-0.50); Hematocrit (blood only) 44.3 % (42.0-52.0); Hemoglobin 15.3 g/dl (14.0-18.0); Immature Granulocytes # (auto) 0.01 K/uL (0.01-0.20); Immature Granulocytes % (auto) 0.2 %; Lymphocytes # (auto) 1.26 K/uL (1.20-3.40); Lymphocytes % (auto) 31.1 %; Mean Corpuscular Hemoglobin 33.3 pg (25.0-34.0); Mean Corpuscular Hgb Conc 34.5 g/dL (32.0-36.0); Mean Corpuscular Volume 96.3 fL (80.0-100.0); Mean Platelet Volume 10.4 fL (9.4-12.4); Monocytes % (auto) 14.8 %; Neutrophils # (auto) 1.98 K/uL (1.40-6.50); Neutrophils % (auto) 48.9 %; Platelet Count 110 K/uL (130-400); RDW Coefficient of Variation 13.2 % (11.5-14.5); RDW Standard Deviation 46.6 fL (36.4-46.3); White Blood Count 4.05 K/ul (4.8-10.8)
[2024-04-09 20:41] LABS: Albumin Globulin Ratio 1.5 (0.9-2); Albumin Level 4.4 gm/dl (3.4-5.0); BUN Creatinine Ratio 24.1 (10-20); Bilirubin,Total 0.8 mg/dl (0.2-1.0); Calcium 9.6 mg/dl (8.6-10.3); Creatinine Clr Calc Pharmacy 72.3 ml/min; Magnesium 2.1 mg/dl (1.7-2.4); Total Protein 7.4 gm/dl (6.0-8.3)
[2024-04-09 20:49] LABS: Troponin I High Sensitivity 24.5 pg/ml (0-20)
[2024-04-09 20:51] LABS: INR 0.9 (0.9-1.1); Partial Thromboplastin Ratio 1.2; Partial Thromboplastin Time 31 Seconds (21-31); Prothrombin Time 10.2 Seconds (9.0-12.0)
[2024-04-09 20:58] LABS: Thyroid Stimulating Hormone 0.176 uIu/ml (0.300-4.500)
[2024-04-09 20:59] LABS: Appearance Urine Clear (Clear); Bilirubin Urine Negative (Negative); Blood Urine Negative (Negative); Color Urine Yellow; Glucose Urine UA Negative (Negative); Ketones Urine Negative (Negative); Leukocyte Esterase Urine Negative (Negative); Nitrite Urine Negative (Negative); Protein Urine Negative (Negative); Specific Gravity Urine 1.019 (1.000-1.030); Urobilinogen Urine Negative (Negative); pH Urine 5.5 (4.5-7.5)
[2024-04-09 21:32] LABS: T4 Free Thyroxine 1.33 ng/dl (0.61-1.60)
--- NOTE | 2024-04-09 22:35 | History & Physical Report ---
Date of Service April 09, 2024 Assessment & Plan (1) Near syncope: (2) Heart block: (3) S/P TAVR (transcatheter aortic valve replacement): (4) HTN (hypertension): Plan Near syncope/heart block- Patient's heart monitoring service notified patient that he had heart block noted on his heart monitor, and that he was to attempt to get to [facility] for pacemaker placement. Patient had a more significant near syncopal episode, and thus presents to the ED at [facility] for assessment. Patient will be admitted to the PCU for monitoring, there is no sign of significant ectopy or heart block on EKG or monitor while in ED at this time Patient just had echocardiogram performed, and no additional need for echo at this time Patient is not on any negative inotropes Continue amlodipine 5 mg daily Of note, potassium 4.0, and magnesium 2.1 Troponin 24.7, and will repeat in the a.m. Consult cardiology If the patient has been uneventful evening, ongoing care and placement of pacemaker can be discussed in the a.m. with [facility] Status post TAVR 04/05/2024- Patient reports that he tolerated the procedure well Heart block likely a secondary complication Will continue to monitor on telemetry as noted Hypothyroidism- Continue levothyroxine Hyperlipidemia Continue rosuvastatin History of Present Illness Chief Complaint: The patient presents to the emergency department, with a near syncopal episode, while he was attempting to travel back to [facility], after being told that his recent heart monitor showed heart block, and that he would need to have a pacemaker placed. Primary Care Provider: Tirso Keane DO The patient is a 78-year-old male with a past medical history including hy pertension, hypothyroidism, hyperlipidemia, erectile dysfunction. Is status post TAVR performed on 04/05/2024 at [facility]. He reportedly had a temporary transvenous pacer, but was removed prior to discharge, as he was no longer having issues. Patient did have a monitor placed for continued evaluation while at [place]. Patient reports that today he had a few episodes of feeling lightheaded or dizzy and like he was almost going to pass out. He did receive a call from the heart monitor system, who reports that he had a heart block, and that he was to go to [facility] to have a pacemaker placed. He reports that he had a near syncopal episode while driving, and presented to the emergency department at [facility] for assessment. He was advised to be admitted to [facility], monitored overnight, and further plans will be determined in the morning. Allergies Allergy/AdvReac Type Severity Reaction Status Date / Time No Known Drug Allergies Allergy Verified 03/28/24 08:29 Home Medications Medication Instructions Recorded Confirmed Type sildenafil 50 mg tablet See Rx Instructions .Route 05/30/23 03/28/24 Rx .COMPLEX #6 tabs amlodipine 5 mg tablet 5 mg PO QAM #90 tabs 10/13/23 03/28/24 Rx levothyroxine 125 mcg tablet 125 mcg PO QAM #90 tabs 01/09/24 03/28/24 Rx rosuvastatin 20 mg tablet 20 mg PO DAILY 02/15/24 03/28/24 History amoxicillin 875 mg tablet 875 mg PO BID 5 days #10 tabs 03/28/24 03/28/24 Rx Past Med/Surg History Problem List (Updated 04/10/24 @ 03:25 by Emil Mendoza MD) Heart block HTN (hypertension) S/P TAVR (transcatheter aortic valve replacement) (Acute) Near syncope (Acute) Erectile dysfunction Benign prostatic hyperplasia with urinary obstruction and other lower urinary tract symptoms (Acute) Medical History Chronic sinusitis Nasal septal deviation History of COVID-19 (07/2023) Symptoms resolved Chronic osteoarthritis Aortic stenosis Echo 02/09/24: Severe aortic stenosis (AVAI 0.55cm2, AV MG 42mmhg) Follows with Dr. Mensah Moderate obstructive sleep apnea Not currently using any device, unable to tolerate CPAP GERD (gastroesophageal reflux disease) Hypothyroidism History of radioactive iodine thyroid ablation Bruxism HLD (hyperlipidemia) HTN (hypertension) Psoriasis Surgical History (Updated 04/09/24 @ 23:07 by Sly Wu MD) History of colonoscopy History of evacuation of hematoma Groin S/P knee surgery Right S/P inguinal hernia repair S/P hip replacement Left S/P cataract surgery Family History Father Acute myocardial infarction Hypertension Cardiac disorder Sister Thyroid disorder Son Epilepsy Daughter Von Willebrand disease, type I Other Myocardial infarction Denies family history of Ovarian cancer Prostate cancer Breast cancer Lung cancer Colorectal cancer Social History Smoking Status: Never smoker Second Hand Exposure: No; Do You Dip or Chew Tobacco: No; Hx Alcohol Use: Yes Alcohol type: beer Alcohol Intake Frequency: 4 or More x per/Week Hx Substance Use: No Preferred Language: Kittitian Communication Ability: Effective Visual Impairment: Limited Hearing Ability: Normal Sub Prior Required: No Beliefs That Will Affect Care: None marital status: Current Living Situation: Spouse current occupational status: employed and retired 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 How many Children do You have: 3 Feels Safe at Home: Yes Safety Concerns: Feels Safe At This Time Childhood Exposure to Second-Hand Smoke: Yes (father smoked cigars ) Diet: regular caffeine: Yes Dental Care, Regularly: Yes Physical Activity Frequency: Daily Physical Activity Frequency Comment: bicycles/walk Seatbelt Use: always Sunscreen Use: Yes (sometimes) Assistive Devices: Glasses Review of Systems Review of Systems: The patient denies chest pain, palpitations, shortness of breath, dyspnea on exertion, cough, lower extremity swelling, sore throat, fevers, chills, sweats, weight change, fatigue, nausea, vomiting, diarrhea , constipation, abdominal pain, pelvic pain, blood in urine or stool, dysuria, urinary frequency or urgency, memory loss, lo ss of consciousness, rash, abnormal bruising or bleeding, focal or generalized weakness, numbness or tingling in arms or legs, generalized arthralgias or myalgias, back or neck pain, or night sweats. The review of systems is otherwise negative other than for that already noted above, and at least 10 systems have been reviewed. Physical Exam 2 Physical Exam: The patient is awake, alert and oriented 3, well developed and well nourished, normocephalic and atraumatic, lying in bed and in no acute distress. HEENT--PERRL, EOMI, mucous membranes and oropharynx normal. Neck--supple. No JVD. No bruits. Thyroid normal, trachea midline, no adenopathy. Heart--normal S1 and S2. No murmurs, rubs or gallops. Lungs--clear bilaterally, no respiratory distress, no accessory muscle use. Abdomen--normal bowel sounds and soft. Nontender. Nondistended, no hernias or masses, no organomegaly. Extremities--no cyanosis or clubbing. No edema. There are good distal pulses b/l. Dermatologic--normal skin turgor, normal color, no abnormal lymph nodes, no rash. Neurologic--cranial nerves II through XII grossly intact. Rheumatologic--normal range of motion. Psychiatric--normal affect. Results & Data Results & Data Vital Signs (Past 12 Hours) Vital Signs Temp Pulse Pulse Resp BP BP Pulse Ox 04/09/24 22:00 65 18 156/86 H 97 04/09/24 20:38 66 16 149/81 H 97 04/09/24 20:02 65 04/09/24 20:00 95 04/09/24 19:44 36.4 C L 72 16 162/92 H 98 O2 Del Method 04/09/24 22:00 Room Air 04/09/24 20:38 Room Air 04/09/24 20:02 04/09/24 20:00 Room Air 04/09/24 19:44 Room Air Laboratory Results Laboratory Results WBC 4.05 K/ul (4.8-10.8) L 04/09/24 20:11 RBC 4.60 M/uL (4.70-6.10) L 04/09/24 20:11 Hgb 15.3 g/dl (14.0-18.0) 04/09/24 20:11 Hct 44.3 % (42.0-52.0) 04/09/24 20:11 MCV 96.3 fL (80.0-100.0) 04/09/24 20:11 MCH 33.3 pg (25.0-34.0) 04/09/24 20:11 MCHC 34.5 g/dL (32.0-36.0) 04/09/24 20:11 RDW Std Deviation 46.6 fL (36.4-46.3) H 04/09/24 20:11 RDW Coeff of Stephania 13.2 % (11.5-14.5) 04/09/24 20:11 Plt Count 110 K/uL (130-400) L 04/09/24 20:11 MPV 10.4 fL (9.4-12.4) 04/09/24 20:11 Immature Gran % (Auto) 0.2 % 04/09/24 20:11 Neut % (Auto) 48.9 % 04/09/24 20:11 Lymph % (Auto) 31.1 % 04/09/24 20:11 [place] % (Auto) 14.8 % 04/09/24 20:11 Eos % (Auto) 4.0 % 04/09/24 20:11 Baso % (Auto) 1.0 % 04/09/24 20:11 Neut # (Auto) 1.98 K/uL (1.40-6.50) 04/09/24 20:11 Lymph # (Auto) 1.26 K/uL (1.20-3.40) 04/09/24 20:11 [place] # (Auto) 0.60 K/uL (0.11-0.59) H 04/09/24 20:11 Eos # (Auto) 0.16 K/uL (0.00-0.50) 04/09/24 20:11 Baso # (Auto) 0.04 K/uL (0.00-0.20) 04/09/24 20:11 Immature Gran # (Auto) 0.01 K/uL (0.01-0.20) 04/09/24 20:11 PT 10.2 Seconds (9.0-12.0) 04/09/24 20:11 INR 0.9 (0.9-1.1) 04/09/24 20:11 APTT 31 Seconds (21-31) 04/09/24 20:11 PTT Ratio 1.2 04/09/24 20:11 Sodium 139 mmol/L (136-145) 04/09/24 20:11 Potassium 4.0 mmol/L (3.5-5.1) 04/09/24 20:11 Chloride 104 mmol/L (98-107) 04/09/24 20:11 Carbon Dioxide 27 mmol/L (21-32) 04/09/24 20:11 Anion Gap 8 (3-11) 04/09/24 20:11 BUN 21 mg/dl (6-23) 04/09/24 20:11 Creatinine 0.87 mg/dl (0.6-1.4) 04/09/24 20:11 Est Cr Clr Drug Dosing 72.3 ml/min 04/09/24 20:11 eGFR 88.32 04/09/24 20:11 BUN/Creatinine Ratio 24.1 (10-20) H 04/09/24 20:11 Glucose 95 mg/dl (70-99(Fasting)) 04/09/24 20:11 Calcium 9.6 mg/dl (8.6-10.3) 04/09/24 20:11 Magnesium 2.1 mg/dl (1.7-2.4) 04/09/24 20:11 Total Bilirubin 0.8 mg/dl (0.2-1.0) 04/09/24 20:11 AST 24 U/L (13-39) 04/09/24 20:11 ALT 19 U/L (7-52) 04/09/24 20:11 Alkaline Phosphatase 74 U/L (34-104) 04/09/24 20:11 Troponin I High Sens 20.8 pg/ml (0-20) H 04/09/24 22:20 Total Protein 7.4 gm/dl (6.0-8.3) 04/09/24 20:11 Albumin 4.4 gm/dl (3.4-5.0) 04/09/24 20:11 Globulin 3.0 gm/dl (2.5-4.0) 04/09/24 20:11 Albumin/Globulin Ratio 1.5 (0.9-2) 04/09/24 20:11 TSH 0.176 uIu/ml (0.300-4.500) L 04/09/24 20:11 Free T4 1.33 ng/dl (0.61-1.60) 04/09/24 20:11 Urine Color Yellow 04/09/24 20:49 Urine Appearance Clear (Clear) 04/09/24 20:49 Urine pH 5.5 (4.5-7.5) 04/09/24 20:49 Ur Specific [place] 1.019 (1.000-1.030) 04/09/24 20:49 Urine Protein Negative (Negative) 04/09/24 20:49 Urine Glucose (UA) Negative (Negative) 04/09/24 20:49 Urine Ketones Negative (Negative) 04/09/24 20:49 Urine Blood Negative (Negative) 04/09/24 20:49 Urine Nitrite Negative (Negative) 04/09/24 20:49 Urine Bilirubin Negative (Negative) 04/09/24 20:49 Urine Urobilinogen Negative (Negative) 04/09/24 20:49 Ur Leukocyte Esterase Negative (Negative) 04/09/24 20:49 Lyme Disease Screen Negative (Negative) 04/09/24 20:11 Impressions Chest X-Ray 04/09/24 20:00 Exam(s): XR CXR 1 VIEW EXAM: XR Chest, 1 View CLINICAL HISTORY: Reason for exam: weakness. TECHNIQUE: Frontal view of the chest. COMPARISON: Prior chest x-ray from February 27, 2024. FINDINGS: Lungs: Mild to moderate peribronchial thickening of the central and lower lobe bronchi. No consolidation. Pleural space: Unremarkable. No pneumothorax. Heart: Unremarkable. No cardiomegaly. Mediastinum: Unremarkable. Normal mediastinal contour. Bones/joints: Unremarkable. No acute fracture. IMPRESSION: Bronchitis, which may be of infectious or inflammatory evidence. No consolidation or pleural effusion. Electronically signed by: Jojo Manzo MD 04/09/24 23:10 PM Code Status & VTE Plan Code Status Full code VTE Prophylaxis Plan VTE Prophylaxis will be ordered: Yes PG Care Time/CCT Total # of Minutes Spent Total Time Spent with Patient: Total time spent is greater than 50% in coordination of care (as documented) at patient's floor/unit and/or counseling patient: Coding Level of Care Code 90810 INT INP/OBS CARE 3/75MIN Diagnoses Near syncope R55 Heart block I45.9 S/P TAVR (transcatheter aortic valve replacement) Z95.2 HTN (hypertension) I10
--- NOTE | 2024-04-09 23:11 | XRay Report ---
Exam(s): XR CXR 1 VIEW EXAM: XR Chest, 1 View CLINICAL HISTORY: Reason for exam: weakness. TECHNIQUE: Frontal view of the chest. COMPARISON: Prior chest x-ray from February 27, 2024. FINDINGS: Lungs: Mild to moderate peribronchial thickening of the central and lower lobe bronchi. No consolidation. Pleural space: Unremarkable. No pneumothorax. Heart: Unremarkable. No cardiomegaly. Mediastinum: Unremarkable. Normal mediastinal contour. Bones/joints: Unremarkable. No acute fracture. IMPRESSION: Bronchitis, which may be of infectious or inflammatory evidence. No consolidation or pleural effusion. Electronically signed by: Jojo Manzo MD 04/09/24 23:10 PM
--- OUTSIDE RECORDS SUMMARY | 2024-04-10 02:27 | External Medical Summary | Continuity of Care Document ---
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 Date(s): 04/06/24 - 04/06/24 [facility] [place] [facility] 1 MB [id number] [facility] [place] - Main Building [address] [facility] [address] [phone] Discharge Disposition: Home or Self Care Attending Physician: MD Montiel Kentaro Referring Physician: MD Montiel Kentaro Allergies, Adverse Reactions, Alerts No Known Allergies Medications amLODIPine 5 mg oral tablet Start: 02/14/18 3:33:00 PM EDT, 1 tab, PO, Daily Start Date: 02/14/18 Status: Ordered aspirin 81 mg oral tablet, chewable Start: 04/06/24 11:54:00 AM EST, 1 tab, PO, Daily Start Date: 04/06/24 Status: Ordered chondroitin Start: 03/13/24 2:26:00 PM EST, chondroitin sulfate sodium 1 pill daily Start Date: 03/13/24 Status: Ordered Co-Q10 Start: 03/13/24 2:26:00 PM EST, See Instructions, 1 cap daily Start Date: 03/13/24 Status: Ordered Crestor 20 mg oral tablet Start: 02/15/24 10:07:00 AM EDT, 1 tab, PO, qhs, Disp# 90 tab, Refills: 3, Pharmacy: [id number] Start Date: 02/15/24 Status: Ordered multivitamin additive Start: 12/24/21 8:51:00 AM EDT Start Date: 12/24/21 Status: Ordered Probiotic Formula Start: 11/09/23 8:30:00 AM EDT, PO, Daily Start Date: 11/09/23 Status: Ordered sildenafil Start: 12/24/21 8:51:00 AM EDT Start Date: 12/24/21 Status: Ordered Synthroid Start: 09/18/13 11:32:00 AM EDT, 125 mcg =, PO, Daily Start Date: 09/18/13 Status: Ordered Tylenol 500 mg oral tablet Start: 04/06/24 11:54:00 AM EST, 2 tab, PO, q8h, PRN: fever/mild pain (1-3) Start Date: 04/06/24 Status: Ordered Vitamin C Start: 12/24/21 8:52:00 AM EDT Start Date: 12/24/21 Status: Ordered vitamin E Start: 12/24/21 8:52:00 AM EDT Start Date: 12/24/21 Status: Ordered Problem List Condition Confirmation Course Effective Dates Status H ealth Status Informant Alopecia universalis Confirmed Active Aortic stenosis Confirmed Active ARTHRITIS Confirmed Active Dupuytren's disease Confirmed Active Status post left hip replacement Confirmed Active Hyperlipidemia Confirmed Active Left knee pain Confirmed Active Pain of left calf Confirmed Active Left knee pain Confirmed Active Shoulder pain Confirmed Active Thyroid Confirmed Active Tobacco user Confirmed Active Procedures Procedure Date Related Diagnosis Body Site Status Hip replacement 2008 Complet ed Knee replacement 1973 Complete d Open repair of inguinal hernia 2 Completed 1left 30924 Social History Social History Type Response Smoking Status Never smoked cigaret alejandra Sex Male Sex Representation Male (finding) Patient Care team information Care Team Personnel Name: DO Keane Brian R Position: Referring Member Role: Primary Care Provider Address: [address] [place] [address] [place] Care Team Related Persons Name: DONALDO PATRICIA
--- OUTSIDE RECORDS SUMMARY | 2024-04-10 02:28 | External Medical Summary | Continuity of Care Document ---
Author Name Unknown Organization 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 Name Role Phone Tirso Keane Primary Care Physician [phone] Encounter [facility] [phone] Date(s): 04/05/24 - 04/06/[address] [phone] Encounter Diagnosis Complete AV block(Discharge Diagnosis) - 04/05/24 Preop cardiovascular exam(Discharge Diagnosis) - 04/05/24 Hyperlipidemia(Discharge Diagnosis) - 04/05/24 Hypothyroidism(Discharge Diagnosis) - 04/05/24 Hypertension(Discharge Diagnosis) - 04/05/24 Severe aortic stenosis(Discharge Diagnosis) - 04/05/24 S/P TAVR (transcatheter aortic valve replacement)(Discharge Diagnosis) - 04/05/24 Aortic stenosis(Discharge Diagnosis) - 04/05/24 Discharge Disposition: Home or Self Care Attending Physician: MD Montiel Kentaro Admitting Physician: MD Montiel Kentaro Referring Physician: DO Mensah Jason D Allergies, Adverse Reactions, Alerts No Known Allergies Functional Status 04/06/24 Neurological Symptoms None ADLs Independent Facial Symmetry Symmetric Gait Steady Swallowing Difficulty None Level of Consciousness Neuro Alert Hallucinations Present None History of Fall in Last 3 Months Morton N o Presence of Secondary Diagnosis Morton Ye s Use of Ambulatory Aid Morton None/bedrest /nurse assist IV/Heparin Lock Fall Risk Morton Yes Gait/Transferring Fall Risk Morton Normal /bedrest/immobile Mental Status Fall Risk Morton Oriented t o own ability Morton Fall Risk Score 35 Morton Fall Risk Low Risk Speech Pattern Clear Medications amLODIPine 5 mg oral tablet Start: [...] qhs, Disp# 90 tab, Refills: 3, Pharmacy: [facility]/pharmacy #[id number] Start Date: 02/15/24 Status: Ordered multivitamin additive [...] AM EDT Start Date: 12/24/21 Status: Ordered Mental Status 04/05/24 Primary Language Tajik Problem List Condition Confirmation Course Effective Dates Status H ealt Status Informant Alopecia universalis Confirmed Active Aortic stenosis Confirmed Active ARTHRITIS Confirmed Active Dupuytren's disease Confirmed Active Status post left hip replacement Confirmed Active Hyperlipidemia Confirmed Active Left knee pain Confirmed Active Pain of left calf Confirmed Active Left knee pain Confirmed Active Shoulder pain Confirmed Active Thyroid Confirmed Active Tobacco user Confirmed Active Diagnosis Diagnosis Type Effective Dates Health Status Clinical Service Informant Severe aortic stenosis Discharge Diagnosis 04/05/24 Non-Specified Complete AV block Discharge Diagnosis 04/05/24 Non-Specified Hyperlipidemia Discharge Diagnosis 04/05/24 Non-Specified Aortic stenosis Discharge Diagnosis 04/05/24 Non-Specified Preop cardiovascular exam Discharge Diagnosis 04/05/24 Non-Specified S/P TAVR (transcatheter aortic valve replacement) Discharge Diagnosis 04/05/24 Non-Specified Hypothyroidism Discharge Diagnosis 04/05/24 Non-Specified Hypertension Discharge Diagnosis 04/05/24 Non-Specified Procedures Procedure Date Related Diagnosis Body Site Status Hip replacement 2008 Complet ed Knee replacement 1973 Complete d Open repair of inguinal hernia 2 Completed 1left [id number] Results Laboratory List Name Date Basic Metabolic Panel (BMP) 04/06/24 Complete Blood Count w Differential (CBC w Platelets and Diff) 04/06/24 Magnesium Level 04/06/24 MRSA Surveillance (Nasal Swab) 04/05/24 Magnesium Level 04/05/24 Potassium Level, Whole Blood 04/05/24 ACT, Celite, by IStat (Wind Tunnel Mechanic) (ACT CE LITE ISTAT (CATH)) 04/05/24 Albumin Level 04/05/24 Basic Metabolic Panel 04/05/24 Complete Blood Count (CBC w Platelets) 1 06/06/23 NT-Pro BNP (BNP, NT-Pro) 04/05/24 Blood Type/Antibody Screen (for possible transfusion) 04/05/24 Most recent to oldest [Reference Range]: 1 2 ABO/Rh O POSITIVE (04/05/24 9:02 AM) Antibody Scr NEGATIVE (04/05/24 9:02 AM) Expires at 0600AM on 04/08/2024 (04/05/24 9:02 AM) # Units 0 (04/05/24 9:02 AM) R Number NRQ (04/05/24 9:02 AM) eGFR CKD-EPI [>60 mL/min/1.73 m2] >90 mL /min/1.73 m2 (04/06/24 3:14 AM) 80 mL/min/1.73 m2 (04/05/24 8:57 AM) BNP, NT-Pro [<450 pg/mL] 289 pg/mL (04/05/24 8:57 AM) Estimated CrCl 79.57 mL/min (04/06/24 3:58 AM) 64.81 mL/min (04/05/24 9:42 AM) MPV [9.0-12.2 fL] 10.3 fL (04/06/24 3:14 AM) 10.0 fL (04/05/24 8:57 AM) Immature Gran% 0.2 % (04/06/24 3:14 AM) Neut% 78.2 % (04/06/24 3:14 AM) Lymph% 11.0 % (04/06/24 3:14 AM) [place]% 9.2 % (04/06/24 3:14 AM) Baso% 0.5 % (04/06/24 3:14 AM) Eos% 0.9 % (04/06/24 3:14 AM) Immat Gran, Abs [0-0.4 K/uL] 0.01 K/uL (04/06/24 3:14 AM) Neut, Abs [2.0-7.7 K/uL] 4.99 K/uL (04/06/24 3:14 AM) Lymph, Abs [1.0-3.4 K/uL] 0.70 K/uL *LOW* (04/06/24 3:14 AM) [place], Abs [0-1.0 K/uL] 0.59 K/uL (04/06/24 3:14 AM) Baso, Abs [0-0.1 K/uL] 0.03 K/uL (04/06/24 3:14 AM) Eos, Abs [0-0.5 K/uL] 0.06 K/uL (04/06/24 3:14 AM) Type of Diff: AUTO (04/06/24 3:14 AM) RDW [11.5-14.2 %] 13.5 % (04/06/24 3:14 AM) 13.4 % (04/05/24 8:57 AM) K, wb [3.5-5.0 mmol/L] 3.7 mmol/L (04/05/24 3:50 PM) Component RED CELLS (04/05/24 9:02 AM) MRSA Surveillance, on Admission [MSND] M RSA NOT detected (04/05/24 3:50 PM) Anion Gap [5-14 mmol/L] 11 mmol/L (04/06/24 3:14 AM) 11 mmol/L (04/05/24 8:57 AM) Alb [3.5-5.2 g/dL] 4.1 g/dL (04/05/24 8:57 AM) BUN [6-23 mg/dL] 15 mg/dL (04/06/24 3:14 AM) 20 mg/dL (04/05/24 8:57 AM) Ca [8.4-10.2 mg/dL] 8.4 mg/dL (04/06/24 3:14 AM) 9.6 mg/dL (04/05/24 8:57 AM) Cl- [98-107 mmol/L] 108 mmol/L *HI* (04/06/24 3:14 AM) 108 mmol/L *HI* (04/05/24 8:57 AM) HCO3 [22-29 mmol/L] 21 mmol/L *LOW* (04/06/24 3:14 AM) 22 mmol/L (04/05/24 8:57 AM) Cret [0.70-1.30 mg/dL] 0.79 mg/dL (04/06/24 3:14 AM) 0.97 mg/dL (04/05/24 8:57 AM) Glu [74-109 mg/dL] 95 mg/dL 1 (04/06/24 3:14 AM) 105 mg/dL 2 (04/05/24 8:57 AM) Hct [39-48 %] 41.7 % (04/06/24 3:14 AM) 44.8 % (04/05/24 8:57 AM) Hgb [13.0-17.0 g/dL] 14.3 g/dL (04/06/24 3:14 AM) 15.2 g/dL (04/05/24 8:57 AM) K [3.5-5.1 mmol/L] 3.5 mmol/L (04/06/24 3:14 AM) 4.0 mmol/L (04/05/24 8:57 AM) MCH [28-33 pg] 33.6 pg *HI* (04/06/24 3:14 AM) 33.3 pg *HI* (04/05/24 8:57 AM) MCHC [32-36 g/dL] 34.3 g/dL (04/06/24 3:14 AM) 33.9 g/dL (04/05/24 8:57 AM) MCV [81-96 fL] 97.9 fL *HI* (04/06/24 3:14 AM) 98.2 fL *HI* (04/05/24 8:57 AM) Mg [1.6-2.6 mg/dL] 1.9 mg/dL (04/06/24 3:14 AM) 2.1 mg/dL (04/05/24 3:50 PM) Na [136-145 mmol/L] 140 mmol/L (04/06/24 3:14 AM) 141 mmol/L (04/05/24 8:57 AM) Plts [150-350 K/uL] 137 K/uL *LOW* (04/06/24 3:14 AM) 182 K/uL (04/05/24 8:57 AM) RBC [4.40-5.60 M/uL] 4.26 M/uL *LOW* (04/06/24 3:14 AM) 4.56 M/uL (04/05/24 8:57 AM) ACT (Celite), POC [74-125 seconds] 272 s econds *HI* (04/05/24 12:19 PM) WBC [4.0-10.4 K/uL] 6.38 K/uL (04/06/24 3:14 AM) 3.04 K/uL *LOW* (04/05/24 8:57 AM) 1Result Comment: ADA recommendation for FASTING Serum/Plasma Glucose: Normal: 70-100 mg/dL Prediabetes: 100-125 mg/dL Diabetes: 126 mg/dL or higher 2Result Comment: ADA recommendation for FASTING Serum/Plasma Glucose: Normal: 70-100 mg/dL Prediabetes: 100-125 mg/dL Diabetes: 126 mg/dL or higher Radiology Reports * Exam Date Time Procedure Performing Provider Status 04/06/24 8:40 AM Echo TransTHORacic TTE Limited Lara Krishnan; Final Notes: (Echo TransTHORacic TTE Limited) Reason For Exam: S/P #26mm TAVR Echo TransTHORacic TTE Limited Report Signatures Finalized by Dr. Gamaliel Cazares MD on 04/06/2024 09:24 AM Promoted to Fellow by Dr. Amanda Merrill DO on 04/06/2024 09:02 AM PA Act 112: No-No further action needed Summary 1. Patient is s/p TAVR 04/15/24 (Dr. Montiel; s/p 26 mm Christensen Neelima 3 Ultra Resilia Valve). 2. Normal left ventricular size and hyperdynamic systolic function with no regional wall motion abnormalities. 3. Estimated Ejection Fraction >70%. 4. Mild left ventricular hypertrophy. 5. Normal diastolic function for age. 6. Normal right ventricular size and function. 7. Biatrial enlargement. 8. Bioprosthetic aortic valve (TAVR) with adequate function (Vmax 2.1 m/s, peak/mean gradients 17/7 mmHg, DVI 0.58, JOSTIN 3.2 cm2, AT 87 ms); no central regurgitation or paravalvular leak is noted. 9. No significant pericardial effusion. 10. Compared to prior on date 02/09/24, patient is now s/p TAVR. Patient Info Name: DINESH PATRICIA Age: 78 years : 1945 Gender: Male Ht: 178 cm Wt: 75 kg BSA: 1.92 m2 HR: 63 bpm BP: 135 / 71 mmHg Heart Rhythm: Sinus Rhythm Technical Quality: Fair Exam Date: 04/06/2024 7:42 AM Exam Location: [place] [address] Patient Status: Inpatient Staff Ordering Physician: Marlen Abreu Air Conditioning Manager: FRANDY Estrada Attending Physician: Cheng Montiel Study Info [facility] [id number] [phone] Indications - s/p #26mm TAVR Z95.2 - Aortic Valve Replacement Procedure(s) * A limited two-dimensional transthoracic echocardiogram was performed. * Color Doppler was performed. * Limited spectral Doppler was performed. Exam Type: Cardiac Basic Left Ventricle Normal left ventricular size and hyperdynamic systolic function with no regional wall motion abnormalities. Estimated Ejection Fraction >70%. Mild left ventricular hypertrophy. Normal diastolic function for age. Right Ventricle Normal right ventricular size and function. Left Atrium Mildly dilated left atrium size. Right Atrium Right atrial dilation. Aortic Valve Bioprosthetic aortic valve (TAVR) with adequate function (Vmax 2.1 m/s, peak/mean gradients 17/7 mmHg, DVI 0.58, JOSTIN 3.2 cm2, AT 87 ms); no central regurgitation or paravalvular leak is noted. Pulmonic Valve Pulmonic valve not well visualized. Mitral Valve Unremarkable mitral valve. Tricuspid Valve Unremarkable tricuspid valve. Pericardium/Pleural No significant pericardial effusion. Inferior Vena Cava Normal IVC size and inspiratory collapse. Aorta Mildly dilated aortic root. Left Ventricular Outflow Tract Name Value Normal LVOT 2D LVOT Diameter 2.6 cm LVOT Doppler LVOT Peak Velocity 1.30 m/s LVOT Peak Gradient 7 mmHg LVOT Mean Gradient 3 mmHg LVOT VTI 27.28 cm LVOT VTI/AV VTI Ratio 0.58 LVOT Stroke Volume 148.85 ml LVOT Stroke Volume Index 0.08 l/m2 LVOT Cardiac Output 9.38 l/min LVOT Cardiac Index 4.88 L/min/m2 Mitral Valve Name Value Normal MV Doppler MV Decel Burnett 109.23 cm/s2 MV PHT 112 ms MV Diastolic Function MV E Peak Velocity 0.42 m/s <=0.50 MV A Peak Velocity 0.62 m/s MV E/A 0.68 <=0.80 MV Decel Time 385 ms MV Annular TDI MV Septal s' Velocity 2.81 cm/s MV Septal e' Velocity 10.39 cm/s >=7.00 MV E/e' (Septal) 4.1 <=8.0 MV Lateral s' Velocity 4.16 cm/s MV Lateral e' Velocity 12.71 cm/s >=10.00 MV E/e' (Lateral) 3.31 <=8.00 MV e' Average 11.55 MV E/e' (Average) 3.68 <=14.00 Tricuspid Valve Name Value Normal Estimated PAP/RSVP RA Pressure 3 mmHg <=5 TV Diastolic Function TV E Peak Velocity 0.34 m/s TV A Peak Velocity 0.34 m/s TV E/A 0.99 0.80-2.00 TV Decel Time 145 ms >=120 TV Annular TDI TV Lateral Maricruz s' Velocity 15.3 cm/s 9.5-18.7 TV Lateral Maricruz e' Velocity 7.5 cm/s <7.8 TV E/e' 4.50 2.00-6.00 Aorta Name Value Normal Ascending Aorta Sinus of Valsalva Diameter 3.8 cm 3.1-3.7 Sinus of Valsalva Index 2.00 cm/m2 1.50-1.90 Venous Name Value Normal IVC/SVC IVC Diameter (Insp 2D) 0.4 cm IVC Diameter (Exp 2D) 1.3 cm <=2.1 IVC Diameter Percent Change (2D) 70 % >=50 Aortic Valve Name Value Normal AV Doppler AV Peak Velocity 2.51 m/s <2.00 AV Peak Gradient 25 mmHg AV Mean Gradient 11 mmHg <20 AV VTI 47.15 cm AV Area (Cont Eq VTI) 3.2 cm2 >=2.0 AV Area Index (Cont Eq VTI) 1.64 cm2/m2 AV Area (Cont Eq Pablo) 2.8 cm2 AV Area Index (Cont Eq Pablo) 1.47 cm2/m2 AV V1/V2 Ratio 0.52 AV Accel Time 87 ms AV Regurgitation 2D LVOT Area 5.5 cm2 Ventricles Name Value Normal LV Dimensions 2D/MM IVS Diastolic Thickness (2D) 1.4 cm 0.6-1.0 LVID Diastole (2D) 4.5 cm 3.6-5.6 LVIW Diastolic Thickness (2D) 1.3 cm 0.6-1.0 LVID Systole (2D) 2.6 cm 2.5-4.0 LVOT Diameter 2.6 cm LV Mass (2D Cubed) 224.36 g 88.00-224.00 LV Mass Index (2D Cubed) 0.01 g/cm2 0.00-0.01 Relative Wall Thickness (2D) 0.57 LV Fractional Shortening/Ejection Fraction 2D/MM LV Fractional Shortening (2D) 41 % 25-43 RV Dimensions 2D/MM RV Basal Diastolic Dimension 3.5 cm 2.5-4.1 TAPSE 2.9 cm >=1.7 Atria Name Value Normal LA Dimensions LA Area (4C) 19.5 cm2 LA Length (4C) 5.5 cm LA Area (2C) 22.0 cm2 LA Length (2C) 6.5 cm LA Volume (4C A-L) 58.87 ml LA Volume (2C A-L) 63.22 ml LA Volume (BP A-L) 67 ml 18-58 LA Volume Index (BP A-L) 34.64 ml/m2 <=34.00 RA Dimensions RA Area (4C) 19.2 cm2 <=18.0 Final Signed by:MD Cazares Steve Signed (Electronic Signature):04/06/2024 7:42 a * Exam Date Time Procedure Performing Provider Status 04/05/24 3:47 PM XR Chest 1 View Giorgi Lowe Notes: (XR Chest 1 View) Reason For Exam: s/p TAVR w/ CHB requiring TVP, eval for pulmonary edema, pneumothorax XR Chest 1 View EXAMINATION: XR Chest 1 View CLINICAL HISTORY: s/p TAVR w/ CHB requiring TVP COMPARISON: CT chest dated 03/13/2024 FINDINGS: Upright AP view of the chest. TAVR. Right internal jugular approach pacer lead in the right ventricle. Normal cardiomediastinal silhouette and pulmonary vasculature. No focal parenchymal opacity. No large pleural effusion. No pneumothorax. No acute osseous abnormality. IMPRESSION: No acute cardiopulmonary abnormality. Transvenous pacer lead right ventricle. Dr. Ivette Ball is the dictating resident. Finalized reports status indicates that the attending has reviewed the images and report, and agrees with the interpretation. Preliminary report status should be regarded as NOT interpreted by the attending radiologist. Workstation ID: [id number] Final Dictated by:MD Ball Haley M Dictated DT/TM:04/05/2024 4:23 Resident:MD Ball Haley M Signed by:DO Tirado Matthew D Signed (Electronic Signature):04/05/2024 4:22 p Vital Signs Most recent to oldest [Reference Range]: 1 2 3 Height 177.8 cm (04/05/24 8:38 AM) 177.8 cm (04/04/24 11:02 AM) Patient Weight 75.4 kg (04/06/24 6:00 AM) 74.5 kg (04/05/24 8:38 AM) Body Mass Index 23.85 kg/m2 (04/06/24 6:00 AM) 23.57 kg/m2 (04/05/24 8:38 AM) Temperature [36.5-37.9 DegC] 36.5 DegC (04/06/24 4:00 AM) 36.2 DegC *LOW* (04/06/24 12:00 AM) 36.5 DegC (04/05/24 8:00 PM) Heart Rate 68 bpm (04/06/24 10:00 AM) 67 bpm (04/06/24 9:00 AM) 68 bpm (04/06/24 8:00 AM) Respiratory Rate 21 br/min (04/06/24 10:00 AM) 19 br/min (04/06/24 9:00 AM) 28 br/min (04/06/24 8:00 AM) Blood Pressure 136/84mmHg (04/06/24 10:00 AM) 147/74mmHg (04/06/24 9:00 AM) 127/74mmHg (04/06/24 8:00 AM) Mean Blood Pressure 99 mmHg (04/06/24 10:00 AM) 94 mmHg (04/06/24 9:00 AM) 89 mmHg (04/06/24 8:00 AM) Cuff Pulse Pressure 52 mmHg (04/06/24 10:00 AM) 73 mmHg (04/06/24 9:00 AM) 53 mmHg (04/06/24 8:00 AM) BP Location # 1 Right Arm (04/06/24 10:00 AM) Right Arm (04/06/24 9:00 AM) Right Arm, Non-invasive (04/06/24 8:00 AM) Social History Social History Type Response Smoking Status Never smoked cigaret alejandra Sex Male Sex Representation Male (finding) EKG study * Contributor_system, [id number]: VERIFY, PERFORM Event Display: EKG Authored Date: [id number] Please click on link to see image. * Contributor_system, [email or web address]: VERIFY, PERFORM Event Display: EKG Authored Date: [id number] Please click on link to see image. * Contributor_system, MUSE01: VERIFY, PERFORM Event Display: EKG Authored Date: [id number] Please click on link to see image. Anes H&P * MD Arabella, Cornell: MODIFY, PERFORM, SIGN, VERIFY Event Display: Anes H&P Authored Date: [id number] Patient: DINESH PATRICIA Age: 78 years Sex: Male : 1945 Associated Diagnoses: None Author: MD Arabella, Cornell Preoperative Information Pre-Operative Diagnosis: Aortic stenosis . Anesthiesia Preop Info: Procedure: TRANSFEMORAL TAVR WITH CONSCIOUS/PROCEDURAL SEDATION Date: 04/05/24 10:30 Surgeons: MD Tiana [facility] Diagnosis: . History of Present Illness 78 year old 75 kg M scheduled for TAVR. He also has a history of HTN (CCB), moderate MR, hypothyroidism (levothyroxine). NPO: appropriate Airway 2010: MP2 Moderate mask G1V Mac 4 8.0 OETT (first attempt with C-track #4; too small, so converted to DL) Cardiac cath 02/2024 * Non-obstructive coronary artery atherosclerosis * Visualization of heavily calcified aortic valve. * Resting hemodynamics demonstrated normal right (mRAP 3 mmHg) and normal left (mPCWP 3 mmHg) heartfilling pressures. Mean pulmonary arterial pressure was normal (mPAP 12 mmHg) with normal pulmonaryvascular resistance (PVR 1.6 VACA). Cardiac index was normal by Nicholas equation (CI 2.7 L/min/m2) usingassumed O2 consumption. Cardiac index was normal by Thermodilution (CI 2.9 L/min/m2). TTE 01/2024 Summary 1. Normal left ventricular size and systolic function with no regional wall motion abnormalities. 2. Ejection fraction as calculated by Biplane Simpsons method is 70%. 3. Normal LV strain. Global endocardial peak longitudinal strain is -22%. 4. Mild concentric left ventricular hypertrophy. 5. Grade I diastolic dysfunction of the left ventricle (impaired relaxation pattern) with indeterminate left atrial pressure. 6. Mildly dilated right ventricle with normal systolic function. 7. Moderate biatrial dilation. 8. Dilated aortic root (3.7 cm) and ascending aorta (3.6 cm). 9. Heavily calcified, tricuspid aortic valve with severe aortic stenosis (LVOT/AV ratio is 0.26, AV mean PG is 42 mmHg and AVAI is 0.55 cm2/m2). No aortic insufficiency. 10. Structurally normal mitral valve with moderate regurgitation. 11. Trace to mild tricuspid regurgitation. 12. Normal estimated pulmonary artery pressures, estimated PASP is 22 mmHg. 13. Compared to the previous study performed 07/19/2023, there is no change in the degree of aortic valve stenosis. The LVOT/AV ratio and AVAI are unchanged. Medical History Anesthesia History: Patient's history: Negative. Family's history: Negative. Health Status Allergies: Allergic Reactions (Selected) NKA. Medications: Medication List (Selected) Inpatient Medications Ordered Kefzol: 2,000 mg, 50 mL, 100 mL/HR, IV, To OR, PRN: see order comments Tylenol: 1,000 mg, PO, ONCE Prescriptions Prescribed Crestor 20 mg oral tablet: 1 tab, PO, qhs, 90 tab, 3 Refill(s) Documented Medications Documented Co-Q10: See Instructions, 1 cap daily Probiotic Formula: PO, Daily Synthroid: 125 mcg, PO, Daily Vitamin C: amLODIPine 5 mg oral tablet: 1 tab, PO, Daily chondroitin: chondroitin sulfate sodium 1 pill daily multivitamin additive: sildenafil: vitamin E: . Histories Procedure History: Hip replacement ([id number]) in 2008 at 63 Years. Comments: 09/18/2013 11:30 EDJune Moyer left Knee replacement ([id number]) in 1972 at 27 Years. Open repair of inguinal hernia ([id number]). Comments: 03/13/2024 14:24 EST - Jonn, TAMIKO Jia M 2016. Physical Examination VS/Measurements: Vital Signs 04/05/2024 09:07 EST Systolic Blood Pressure 153 mmHg Diastolic Blood Pressure 97 mmHg Mean Blood Pressure 113 mmHg Cuff Pulse Pressure 56 mmHg . Airway: Mallampati classification: III (soft palate, base of uvula visible). Mouth: Within normal limits, Teeth ( Within normal limits ). Respiratory: Lungs are clear to auscultation, Respirations are non-labored, Breath sounds are equal. Cardiovascular: Normal rate, Regular rhythm, +pantera. Vascular Access: Peripheral. Anesthesiologist Assessment and Plan Problems: No previous anesthetic complications. Cardiac risk factors: High risk surgery. ASA Classification: Class IV. Anesthetic Plan: Anesthetic technique discussed: General anesthesia. Risks discussed: Nausea-vomiting, Headache, Sore throat, Dental injury, Eye injury, Allergic reaction, Serious complications, Nerve damage, Aspiration. Informed consent: Signed by patient. History, Physical Exam, Assessment and Plan Completed: 04/05/2024 11:00:00, MD Arabella, Cornell. Electronic Signature on File Electronically Reviewed/Signed by: Cornell Bell MD, MPH Author Signature Dt/Tm:04/05/2024 02:12 PM Department of Anesthesia TC * MEENAKSHI Davis Denise A: PERFORM MD Maria Luz, Rhett: MODIFY, MODIFY MD Maria Luz, Rhett: MODIFY, MODIFY MD Maria Luz, Rhett: MODIFY, MODIFY MD Maria Luz, Rhett: MODIFY, MODIFY MD Maria Luz, Hrett: MODIFY, MODIFY MD Maria Luz, Rhett: MODIFY, MODIFY MD Maria Luz, Rhett: MODIFY Event Display: Pre-OP H & P Authored Date: [id number] PRE-OPERATIVE HISTORY AND PHYSICAL Name: DINESH PATRICIA Patient Number: [id number] : 1945 Date of Service: 04/04/2024 PRE-OP Diagnosis: Severe Aortic Stenosis Planned Procedure: TAVR transfemoral Chief Complaint: [place] History of Present Illness (including history relevant to procedure): 78 yr old male,referred by Dr. Dada Mensah, [facility], for severe aortic stenosis and treatment options. Initially pt did not admit to symptoms. When evaluated by Dr. Mensah patient described being an avid cyclist, but admitted to slowing down, [place], and recalls 2 years ago experiencing lightheaded & dizzy with exercise. A TTE was completed 01/2024 demonstrating w/ EF 70%, JOSTIN 0.55cm2, mean gradient 42mmHg. A diagnostic cardiac cath was completed on 02/24/2024 which demonstrated non obstructive CAD with a 40% stenosis of OM1. PMH includes hyperlipidemia, hypertension, tobacco use, MARIELLE with intolerance to CPAP, know R BBB onEKG. Patient was evaluated in a multidisciplinary team including interventional cardiology as well as cardiology/cardiothoracic surgery, STS 0.967%, NYHA Class III. CT angiography demonstrated vasculatureamenable for transcatheter approach. Patient was presented with treatment options forsevere aortic stenosis SAVR vs TAVR. Patient was given shared decision making tool from [employer]) decision aid fortreatmentoptions for severe aortic stenosis for patients decidingbetween MEKA and surgery was reviewed with patient.Using shared decision making with patient and D team the patient wished to proceed with TAVR. She presents electively for this today. Review Of Systems: 14 point ROS complete with positive findings as noted above, all other systems are negative Negative Findings Constitutional _ _ HEENT _ _ Respiratory _ _ Cardiovascular _ _ Gastrointestinal _ _ Genitourinary _ _ Hem/Lymph _ _ Endocrine _ _ Musculoskeletal _ _ Immunologic _ _ Skin _ _ Neurologic _ _ Psychiatric _ _ Other _ _ Past Medical History: Problems: Pain of left calf Aortic stenosis Tobacco user Left knee pain Left knee pain Status post left hip replacement Dupuytren's disease Alopecia universalis Shoulder pain Hip pain Hyperlipidemia ARTHRITIS Thyroid Procedure History Procedure Procedure Date Comments Open repair of inguinal hernia - 2017 Hip replacement 2008 - left Knee replacement 1972 Allergies and Sensitivities: NKA Current Home Meds: (Last Updated 03/13 14:27) amLODIPine (amLODIPine 5 mg oral tablet) 5 mg PO Daily ascorbic acid (Vitamin C) bifidobacterium-lactobacillus (Probiotic Formula) PO Daily chondroitin chondroitin sulfate sodium1 pill daily levothyroxine (Synthroid) 125 mcg PO Daily multivitamin (multivitamin additive) rosuvastatin (Crestor 20 mg oral tablet) 20 mg PO qhs sildenafil ubiquinone (Co-Q10) 1 cap daily vitamin E No Vital Signs Data Available Initial Wt: No Data Available Physical Exam: (relevant to the procedure, including heart and lung evaluation) His blood pressure was 157/97. Pulse was regular in the low 60s. He weighed 74.5 kg. His dentition was in good repair. Jugular pressure is normal. His carotids were perhaps delayed. Neck bruits were heard. His lungs were clear. Heart rhythm was regular. The second sound was single. A late peaking, grade 3/6 systolic murmur was heard at the base. No diastolic or holosystolic murmur was heard. The abdomen was soft. No edema was present. Pedal pulses and radial pulses were palpable. He was alert and oriented. Studies of Lab Results (relevant to the procedure): EKG: RBBB with ventricular couplet. ASSESSMENT/PLAN: 78yr old male with symptomatic severe aortic stenosis and medical history as noted above. Decision was to proceed with TAVR with consideration of staged PCI following TAVR. He presents today with plan for transfemoral TAVR after having been evaluated by multidisciplinary team and identified as appropriate candidate, STS as above. Procedure was reviewed with patient and family present at bedside including risk, benefits, and alternatives as well as postprocedural expectations. Patient was given adequate time to review and ask questions as needed. All questions answered to patient satisfaction.Patient denied further questions, verbalized understanding, and expressed interest in moving forward. Informed consent was obtained. I explained the rationale for the procedure. I presented the anticipated risks as 2% , 2% stroke, and 3 to 4% major vascular injury. In addition, his baseline right bundle branch block gives jf 40 to 50% chance of needing a permanent pacemaker. All questions were answered. Electronic Signature on File Electronically Reviewed/Signed by: Kyara Davis MS, MEENAKSHI [facility], [address], [address], [place] [address] Electronically Reviewed/Signed by: Rhett Braga MD Cosigner Signature Dt/Tm: 04/05/2024 10:26 AM [facility], [address], [address] [address] HOMAR Surgical operation note * MD Tiana, Cheng: PERFORM Event Display: .Operative Report Authored Date: [id number] OPERATIVE REPORT Name: DINESH PATRICIA Patient Number: [id number] : 1945 Date of Service: 04/05/2024_ SURGEON: Rhtet Braga MD, Branden Rivas MD, Cheng Montiel MD. BABCOCK TESTER(s): Cheng Montiel MD. PREOPERATIVE DIAGNOSIS: Severe aortic stenosis. POSTOPERATIVE DIAGNOSIS: Same. OPERATION PERFORMED: Transcatheter aortic valve replacement, transfemoral. ANESTHESIA: General. INDICATIONS: Severe symptomatic aortic stenosis. Findings: Severe aortic stenosis. Specimen: None. Estimated blood loss: Minimal. Complication: None. OPERATION: Informed consent was obtained from the patient. He was brought to the catheterization laboratory, placed in the supine position, and prepared in standard fashion. A team time-out was performed. Monitored anesthesia care was provided. Using ultrasonic guidance, the left femoral vein was entered with a 21 gauge needle, and a 5 FrenchMicrocatheter was placed. After the introduction of a 0.035" wire, a 7 Serbian sheath was placed in the left femoral vein. Using ultrasonic guidance, the left femoral artery was entered with a 21 gauge needle, and a 5 Serbian Microcatheter was placed. After the introduction of a 0.035" wire, a 7 Serbian sheath was placed in the left femoral artery. Using ultrasonic guidance, the right common femoral artery was entered with a 21 gauge needle, and a 5 Serbian Microcatheter was placed. Two Perclose ProStyle devices were placed in a "preclose" fashion but not deployed. A 7 Serbian sheath was placed in the right femoral artery. A 6 Serbian pigtail was advanced through the sheath in the left femoral artery until it reached the right sinus of the aortic valve. Aortography was used to identify a coplanar view. Heparin was givenas an 8,000 unit bolus. Additional dosing was guided by the ACT. Via the 7 Serbian sheath in the right common femoral artery, a pigtail catheter was used to advance a Lunderquist wire into the thoracic aorta. A 14 Serbian eSheath was inserted into the right BRIAR SHOP SUPERVISOR overthe Lunderquist wire. Via the 14 Serbian eSheath, a 6 Serbian AL1 catheter was used successfully to steer a 0.035" 150 cm straight wire through the aortic valve. The AL1 was advanced into the ventricle, after which the straight wire was replaced with a 0.035" x 260 cm j- wire. The AL1 was removed and replaced with a pigtail catheter, and the pigtail was used to place a Safari wire in the LV apex. A 26 mm Christensen Neelima 3 Ultra Resilia valve was prepared on the back table (nominal). The valve was advanced through the eSheath until it reached thoracic aorta. In the thoracic aorta, the valve was mounted on its delivery balloon. The Neelima 3 valve was then advanced across the grand traverse aortic valve, and the pusher was withdrawn. During rapid ventricular pacing, the valve was deployed. After deflation of the deployment balloon, rapid pacing was stopped. Complete heart block was seen, and back-up pa cing was started. Angiography showed mild regurgitation. Protamine was given. The eSheath was removed, and the preplaced Perclose devices were tightened. Hemostasis seemed secure. The skin over the right neck was prepared and draped in aseptic fashion. Lidocaine was used for skin anesthesia. Using ultrasonic guidance, the right internal jugular vein was entered with a 21-gaugeneedle. A micropuncture set was used to place a 0.035 inch wire in the right internal jugular vein.A 6 Serbian sheath was then placed and secured. A temporary pacing wire was steered through the sheath into the RV apex. Adequate capture was confirmed. The pacing wire was then removed from the left femoral vein. The sheath was removed from the left femoral artery, and hemostasis was obtained with a single Perclose ProStyle device. Hemostasis was secure. The sheath was removed from the left femoral vein, and hemostasis was obtained with a single Perclose ProStyle device. Hemostasis was secure. The patient was transported to the HVICU in stable condition. Rob Salder, and Tiana were co-operators in this case. Electronic Signature on File Electronically Reviewed/Signed by: Cheng Montiel MD Author Signature Dt/Tm:04/06/2024 07:16 AM Division of Cardiothoracic Surgery [place] EP Inpt Consult * Nikita, DO, Altagracia: PERFORM, MODIFY, MODIFY Event Display: EP Inpt Consult Authored Date: [id number] ELECTROPHYSIOLOGY INPATIENT CONSULTATION REPORT Name: DINESH PATRICIA Patient Number: [id number] : 1945 Date of Service: 04/05/2024 REQUESTING SERVICE: Structural Cardiology REASON FOR CONSULTATION: TAVR c/b CHB ASSESSMENT: Mr. Patricia is a 78yoM with severe and non-obstuctive CAD, h/o RBBB+LAFB who underwent a TAVR on 04/05 that was c/b CHB. He is now s/p TVP set to VVI 50. His tele did show V-paced rhythm at 50bpm. However, just recently he did convert to sinus rhythm with rates in the 80s. Will monitor overnight and decide on further management tomorrow morning. RECOMMENDATIONS: _ -remain on telemetry -EKG tomorrow morning -NPO at midnight; will re-evaluate his conduction tomorrow AM then decide on further management History of Present Illness: Mr. Patricia is a 78yoM PMhx severe with non- obstructive CAD, HTN, HLD, tobacco use, MARIELLE not on CPAP, h/o RBBB+LAFB who presented for a TAVR. His TAVR was completed however he developed complete heart block during the procedure. A TVP was placed via the RIJ and hooked up to a box set to VVI 50. EP was consulted at this time. TTE 01/2024 1. Normal left ventricular size and systolic function with no regional wall motion abnormalities. 2. Ejection fraction as calculated by Biplane Simpsons method is 70%. 3. Normal LV strain. Global endocardial peak longitudinal strain is -22%. 4. Mild concentric left ventricular hypertrophy. 5. Grade I diastolic dysfunction of the left ventricle (impaired relaxation pattern) with indterminate left atrial pressure. 6. Mildly dilated right ventricle with normal systolic function. 7. Moderate biatrial dilation. 8. Dilated aortic root (3.7 cm) and ascending aorta (3.6 cm). 9. Heavily calcified, tricuspid aortic valve with severe aortic stenosis (LVOT/AV ratio is 0.26, AV mean PG is 42 mmHg and AVAI is 0.55 cm2/m2). No aortic insufficiency. 10. Structurally normal mitral valve with moderate regurgitation. 11. Trace to mild tricuspid regurgitation. 12. Normal estimated pulmonary artery pressures, estimated PASP is 22 mmHg. 13. Compared to the previous study performed 07/19/2023, there is no change in the degree of aortic valve stenosis. The LVOT/AV ratio and AVAI are unchanged. Cath 02/2024 * Non-obstructive coronary artery atherosclerosis * Visualization of heavily calcified aortic valve. * Resting hemodynamics demonstrated normal right (mRAP 3 mmHg) and normal left (mPCWP 3 mmHg) heartfilling pressures. Mean pulmonary arterial pressure was normal (mPAP 12 mmHg) with normal pulmonaryvascular resistance (PVR 1.6 VACA). Cardiac index was normal by Nicholas equation (CI 2.7 L/min/m2) usingassumed O2 consumption. Cardiac index was normal by Thermodilution (CI 2.9 L/min/m2). Review Of Systems: 12 point ROS negative as per HPI above Past Medical History: severe non-obstructive CAD HTN HLD tobacco use MARIELLE Surgical History: Procedure History Procedure Procedure Date Comments Open repair of inguinal hernia - 2017 Hip replacement 2008 - left Knee replacement 1972 Family History: Brother with severe , now s/p replacement also c/b arrhythmia now s/p device Social History: Active at home, cycles Lives in [place], no tobacco use Allergies and Sensitivities: NKA Active Inpt Meds: None Active PRN Meds: ceFAZolin (Kefzol) 2,000 mg IV To OR One Time Meds: (Completed) heparin (heparin (ANES)) w/ IV ONCE(Completed) lidocaine (lidocaine (ANES)) w/ IV ONCE(Completed) norepinephrine (norepinephrine (ANES)) w/ IV ONCE(Completed) phenylephrine (phenylephrine (ANES)) w/ IV ONCE(Completed) propofol (propofol (ANES)) w/ IV ONCE Active IV Meds: Electrolyte IV Solution 1,000 mL 1,000 mL 75 mL/HR Vitals: Last Updated 04/05/24 09:07 Weights: Last Updated 04/05/24 08:38 Date Temp Pulse BP RR SpO2 FIO2 Date Wt(kg) Wt(lb) 04/05 09:07 153/97 04/05 08:38 74.5 164 04/05 08:47 36.7 179/106 14 04/05 08:38 74.5 164 24 Hr Tmax: 36.7 at 04/05 08:47 Initial Wt: 04/05 74.5 kg 164 lb Physical Exam: Constitutional: VS as above, NAD, WDWN, cooperative Eyes: no scleral icterus ENMT: MMM Neck: R IJ TVP Resp: no use of accessory muscles, CTA b/l AP, no wheezing or rales Cardio: RRR, S1S2 2/6 systolic murmur, no peripheral edema GI: nontender, soft, Neuro: no FND MSK: moves all 4 extremities spontaneously Most Recent 24 Hour CBC/BMP Results CBC: on 04/05/2024 08:57 BMP: on 04/05/2024 08:57 15.2 141 108 20 3.0 182 105 44.8 4.0 22 0.97 Ca = 9.6 Most Recent 24 Hour Labs: 04/05/24 0942 Estimated CrCl 64.81 04/05/24 0902 ABO/Rh See Flowsheet Antibody Scr See Flowsheet Expires at 0600AM on See Flowsheet # Units 0 R Number See Flowsheet Component See Flowsheet 04/05/24 0857 MCH 33.3 H MCHC 33.9 MCV 98.2 H RBC 4.56 MPV 10.0 RDW 13.4 BNP, NT-Pro 289 Anion Gap 11 eGFR CKD-EPI 80 Alb 4.1 Studies: Pending or Completed in the Last 24 Hours Echo TransTHORacic TTE Limited Ordered EKG Ordered EKG Ordered Transcatheter Aortic Valve Replacement Ordered Electronic Signature on File Electronically Reviewed/Signed by: Altagracia Shelton DO Author Signature Dt/Tm:04/05/2024 02:43 PM Resident [facility] Electronically Reviewed/Signed by: Laz Ruano MD Cosigner Signature Dt/Tm: 04/05/2024 03:00PM Division of General Cardiology SG * MD Alden, Laz Silva: PERFORM Event Display: EP Inpt Consult Authored Date: I have seen and evaluated the patient. I agree with Dr Shelton's note as written Will evaluate in AM for PPM. Maintain NPO in case Electronic Signature on File Electronically Reviewed/Signed by: Laz Ruano MD Author Signature Dt/Tm:04/05/2024 03:00 PM Division of General Cardiology GMB .D/C Summary * MARIANNA Montana, Diego Lerner: PERFORM Event Display: .D/C Summary Authored Date: [facility] For medical concerns, call: . Address: [address] [place] [address] [id number] (MOBILE) :1945 . Date of Admission:04/05/2024 Date of Discharge:04/06/2024 Physician:MD Montiel Kentaro Service:Cardiac Surgery Discharge Disposition:Home Primary Care Provider/Phone: DO KEANE BRIAN R (BUSINESS) [phone] (FAX BUSINESS) Principal Diagnosis: Severe aortic stenosis Other Diagnoses: S/P TAVR (transcatheter aortic valve replacement) Aortic stenosis Complete AV block Hyperlipidemia Hypertension Hypothyroidism Preop cardiovascular exam Major Tests and Procedures: RIJ ventricualr pacing wire 04/05/2024 s/p #26mm TAVR 04/05/2024 Hospital Course: Hospital Course: The patient was taken to the [facility] on __04/05/24_ and underwent _transfemoral TAVR_. The procedure was complicated by completeheart block and the patient went to the HVICU with temp pacer. The following morning his conduction was restored with no concern for AVB per EP. He was discharged with OT in [facility] patients activity and diet were advanced. Medications were titrated appropriately and oxygen was weaned off. Post-operative echocardiogram was within normal limits. [id number] mg daily. The patient was discharged in stable condition after being instructed on wound care, diet and activity restrictions. They have 1 month follow up with scheduled ECHO on ___05/14/24 . Yearly followup with your mail examiner is also required. We thank you for the opportunity to participate in the care of your patient. Please do not hesitateto contact us with any questions. Sincerely, [facility] Cardiac Surgery Service Exam on Discharge: Vitals & Measurements: T:36.5C TMIN:36.1C TMAX:36.5C HR:68(Monitored) RR:21 BP:136/84 SpO2:96% Oxygen Flow:2(L/Min) Oxygen Therapy:Room Air WT:75.4kg General: NAD, alert& oriented x4 Lung: Unlabored respirations, on RA CV: RRR GI:soft, non-tender, non-distended Extremities: trace LE edema Incisions: CDI, healing well Discharge Medications: 1.Levothyroxine (Synthroid) 125 mcg by mouth once daily. 2.AmLODIPine (amLODIPine 5 mg oral tablet) 5 mg (1 tab) by mouth once daily. 3.Multivitamin (multivitamin additive) . 4.Vitamin E . 5.Sildenafil . 6.Ascorbic acid (Vitamin C) . 7.Bifidobacterium-lactobacillus (Probiotic Formula) by mouth once daily. 8.Rosuvastatin (Crestor 20 mg oral tablet) 20 mg (1 tab) by mouth at bedtime. For: Aortic stenosis.Preop cardiovascular exam. Hyperlipidemia. 9.Ubiquinone (Co-Q10) See Instructions . 1 cap daily. 10.Chondroitin . chondroitin sulfate sodium1 pill daily. 11.Aspirin (aspirin 81 mg oral tablet, chewable) 81 mg (1 tab) by mouth once daily. 12.Acetaminophen (Tylenol 500 mg oral tablet) 1,000 mg (2 tab) by mouth every 8 hours, as needed for fever/mild pain (1-3). Allergies and Sensitivities: NKA Tests Pending: None Follow-Up Tests and Studies After Discharge: 30 day MCOT Scheduled Appointments: Date/Time:Provider/Resource: Apr 11:30 [facility] Stress BETH Location/Instructions:[facility], [address], [place] [address]. Superintendent [employer] parking is available at the Main Entrance. A shuttle is available from the main entrance or the [place] [facility] to the [facility] Entrance. At the [facility] Entrance proceed past elevators, check in at I Registration on your right in Rm [id number]. option 2. Please arrive 15 minutes prior to your scheduled appointment time for Check In Process. Date/Time:Provider/Resource: Apr 12:45 [facility] Location/Instructions:[facility], [address], [address], [address], [place] [address] . Please arrive 15 minutes earlier than your appointment time for the check in process. Date/Time:Provider/Resource: May 02:15 pmMEENAKSHI Restrepo Sarah A Location/Instructions:[facility] [address], [address], [address], [place] [address] . Please arrive 15 min earlier than your appointment time for Check In Process. Discharge Services: No Post-Acute Placement(s) Listed No Post-Acute Service(s) Listed . Advance Directive:None I personally spent45 minutes in discharge planning. Electronic Signature on File Electronically Reviewed/Signed by: Diego Montana PA-C Author Signature Dt/Tm:04/06/2024 12:05 PM Division of Cardiothoracic Surgery Electronically Reviewed/Signed by: Cheng Montiel MD Cosigner Signature Dt/Tm: 04/06/2024 12:56 PM Division of Cardiothoracic Surgery MRM Discharge instructions * MARIANNA Montana, Diego Lerner: PERFORM Event Display: Patient Discharge Instructions Authored Date: [id number] DINESH PATRICIA Ronald :1945 Visit Date:04/05/2024 Patient Discharge Instructions [facility] For medical concerns, call: . Date of Admission:04/05/2024 Date of Discharge:04/06/2024 Physician:MD Montiel Kentaro Service:Cardiac Surgery Discharge Disposition:Home . Advance Directive:None Reason for Hospitalization Severe aortic stenosis Your Diagnoses Severe aortic stenosis S/P TAVR (transcatheter aortic valve replacement) Aortic stenosis Complete AV block Hyperlipidemia Hypertension Hypothyroidism Preop cardiovascular exam My Health Patient Portal: [employer] makes it easy for you to manage your health information online. My Y[employer]ome is a free service that provides you instant, secure access to your medical information anytime, anywhere. Sign in or set up your account today at [email or web address] Thank you for allowing us to assist you with your healthcare needs. If you need additional community resources, JOHNATHAN Nguyễn can help at [email or web address]. 211 can assist you in connecting with social programs based on your unique needs and locations. 211 is an anonymous search that can help you locate resources for: Food, Housing, Transportation, Goods, Education and Healthcare. Medications What How Much When Why Instructions Next Dose New acetaminophen (Tylenol 500 mg oral tablet) 2 tab(s) by mouth Every 8 hours as needed for fever/mild pain (1-3) New aspirin (aspirin 81 mg oral tablet, chewable) 1 tab(s) by mouth Once daily Unchanged amLODIPine (amLODIPine 5 mg oral tablet) 1 tab(s) by mouth Once daily Unchanged ascorbic acid (Vitamin C) Unchanged bifidobacterium-lactobacillus (Probiotic Formula) by mouth Once daily Unchanged chondroitin chondroitin sulfate sodium 1 pill daily Unchanged levothyroxine (Synthroid) 125 Microgram by mouth Once daily Unchanged multivitamin (multivitamin additive) Unchanged rosuvastatin (Crestor 20 mg oral tablet) 1 tab(s) by mouth At bedtime Aortic stenosis Preop cardiovascular exam Hyperlipidemia Unchanged sildenafil Unchanged ubiquinone (Co-Q10) See instructions 1 cap daily Unchanged vitamin E Allergies NKA What to do next Instructions From Your Doctor Principal Discharge Dx: Aortic Stenosis s/p TAVR Major Procedures: __26__mm TAVR via transfemoral approach Discharge Instructions: 1) If you have any questions please call [phone] Tuesday through Tuesday 8am4pm. For any questions after 4pm, weekends or holidays, please call [phone]. This number will connect you [facility] machine operator and ask for the quality assurance monitor final taxation economist. 2) You may shower and wash incisions with soap and water daily. No bath tubs or pools until incisions are completely healed. Do not apply any creams, lotions or powders to incision until completely healed. 3) No driving for 1 week from the date of your surgery. 4) Keep legs elevated while sitting. 5) Walk at least 4 times per day with one longer walk per day. Increase the distance of that longerwalk every week. This will help lessen your shortness of breath and fatigue. 6) Due to the replacement of your valve, you will be on Aspirin for the remainder of your life. If taking Metformin, do not resume for 48 hours after your procedure day. 7) Take all medications as prescribed; please call above number if any questions. 8) Weigh yourself daily and record the number. Take your blood pressure and heart rate at least 3 times a week and record. Please bring these records to you follow up appointment. 9) You will be required to take antibiotics prior to ALL dental appointments. Do NOT have any dental work for 3 months 10) No lifting anything over 10 pounds for 2 weeks. 11) CONTACT YOUR FAMILY DOCTOR OR CORE DROPPER FOR ALL MEDICATION REFILLS PLEASE 12) If you experience constipation when you get home, you can take over the counter Colace. Please use as directed. Wound Care: After the procedure, a small dressing will be applied to the wound site. Please remove the dressing the day after the procedure. DO NOT reapply a new dressing or band-aid. Avoid lotions, ointments, or powders at the wound site for one week. Wound Healing: The healing wound should remain soft and dry. A bruise(black and blue rhett) or a marble-sized lump may be present. Please notify your doctor or the cardiac fellow taxation economist if the following signs appear: Drainage from the wound A lump at the puncture site that enlarges or is larger than a marble Pain at the puncture site that makes walking difficult Numbness or tingling in the thigh or leg Calf tenderness or pain Swelling of the ankle or foot Increased area of the bruising with discoloration extending into the thigh, over the buttock or into the groin Discoloration or coolness of the leg or foot Diet: Resume as prior to procedure Cardiac Prudent Diet: 1) Low salt (less than 2000mg per day). Eating too much salt in your diet may cause you to retain fluid. This can make you become more short of breath and increase swelling in legs and feet. 2) Low caffeine 3) Low saturated fat 4) Low cholesterol Diabetic Diet: 1) Low sugar with frequent blood sugar checks 2) Low carbs Activity Guidelines: 1) No driving for 1 weeks since the date of your surgery. 2) Walk at least 4 times per day. You may use the stairs but limit the number of times during the first week while your strength and stamina returns. You may also place a chair at the top and bottom of the stairs to take a break if space allows for this. 3) No pulling, pushing or lifting anything heavier than 10 pounds for 2 weeks after surgery. 4) Cardiac Rehab referral has been made on discharge. A Cardiac Rehab closest to you will contact you in 3-4 weeks to begin outpatient therapy. We encourage you to participate in this program as theywill help monitor your medications, dietary changes and vital signs. They will also help you progress your activity level so that you can get the most out of your procedure. Call you Doctor if: Seek Immediate Attention by call 911 or going to the ER if you experience: 1) Chest pain 2) Heart beat faster than 120 beats per minute 3) Fainting spell 4) Sudden severe headache 5) Coughing up bright red blood 6) Bright red or black tarry stools 7) Shortness of breath not relieved by rest 8) Severe abdominal pain Call the heart valve team at [facility] if you experience: 1) Temperature greater than 100 degrees. 2) Persistent cough with sputum. 3) Cloudy drainage from any surgical wound. Small amounts of clear or pink drainage are okay. Call if drainage is increased or changes color or thickness. 4) Increased swelling, redness , drainage from any surgical/access sites 5) Any lumps at the surgical access sites that have increased in size since discharge 6) Increased swelling of legs and feet. 7) Any weight gain of greater than 3 pounds in one day or 5 pounds in one week. 8) Worsening shortness of breath while walking, lying flat or talking. 9) Please call about any medication related questions. Urgent attention that can be managed by the family doctor: 1) New onset of nausea, vomiting or diarrhea. 2) Pain in the calf that becomes worse when you pull your toes towards your head. 3) Burning with urination or urinary frequency. 4) Skin rash. 5) Sore throat. Other Instructions: Follow-up appointments: 1) You are scheduled for a 1month and a 1 year follow up appointment and Ultrasound of your heart (ECHO) with [facility] have this appointment already scheduled. You are expected to keep these appointments. Please call [phone] if problems arise and you are unable to keep theses appointments. 2) Please see your family doctor as needed. We recommend having at least annual appointments. Worsening Symptoms or Concerns Call us if you have any of the following: Fever over 100Fahrenheit Pain that is getting worse instead of getting better Redness or warmth at the wound Swelling or red streaks down your arm or leg Any wound drainage If you should have any questions/concerns regarding your procedure at this institution, please call Structural Heart team office at [phone]. On weekends, holidays or before 8:00 a.m. or after 5:00 p.m.: , for the hospital rasper machine operator to page the Interventional quality assurance monitor final taxation economist. for the Care Line, 24 hours a day, 7 days a week. If you notice the following symptoms Contact the [facility] Careline at . If unable to contact your physician and you feel it is an emergency, go to the nearest Emergency Room or call 911 Diet Instructions Activity Instructions Follow-Up Appointments Scheduled Follow-Up Appointments Date/Time:Provider/Resource: Apr 11:30 [facility] Stress BETH Location/Instructions:[facility], [address] [place] [address], [place] [address]. Superintendent [employer] parking is available at the Main Entrance. A shuttle is available from the main entrance or the [facility] to the [facility] Entrance. At the [facility] Entrance proceed past elevators, check in at [facility] Registration on your right in Rm [id number]. option 2. Please arrive 15 minutes prior to your scheduled appointment time for Check In Process. Date/Time:Provider/Resource: Apr 12:45 [facility] Location/Instructions:[facility], [address], [address], [address], [place] [address] . Please arrive 15 minutes earlier than your appointment time for the check in process. Date/Time:Provider/Resource: May 02:15 MEENAKSHI Lares Sarah A Location/Instructions:[facility] Rima Walker, [address] [address], [place] [address] . Please arrive 15 min earlier than your appointment time for Check In Process. 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 F.A.S.T. Balance: is there trouble with walking or coordination Eyes: is there double vision or visual loss Face: Smile, do both sides of face move equally Arm: Raise arms, do both arms move equally Speech: Is speech slurred or inappropriate Time: Time is critical, call 911 immediately Heart Attack Signs Chest discomfort: Most heart attacks involve discomfort in the center of the chest and lasts more than a few minutes, or goes away and comes back. It can feel like uncomfortable pressure, squeezing, fullness or pain. Discomfort in upper body: Symptoms can include pain or discomfort in one or both arms, back, neck, jaw or stomach. Shortness of breath: With or without discomfort. Other signs: Breaking out in a cold sweat, nausea, or lightheaded. Remember, MINUTES DO MATTER. If you experience any of these heart attack warning signs, call to get immediate medical attention! Education Materials Femoral Site Care The following information offers guidance on how to care for yourself after your procedure. Your health care provider may also give you more specific instructions. If you have problems or questions, contact your health care provider. What can I expect after the procedure? After the procedure, it is common to have bruising and tenderness at the incision site. This usually fades within 12 weeks. Follow these instructions at home: Incision site care Follow instructions from your health care provider about how to take care of your incision site. Make sure you: Wash your hands with soap and water for at least 20 seconds before and after you change your bandage (dressing). If soap and water are not available, use hand rpg programmer analyst. Change or remove your dressing as told by your health care provider. Leave stitches (sutures), skin glue, or adhesive strips in place. These skin closures may need to stay in place for 2 weeks or longer. If adhesive strip edges start to loosen and curl up, you may trim the loose edges. Do not remove adhesive strips completely unless your health care provider tells you to do that. Do not take baths, swim, or use a hot tub until your health care provider approves. You may shower 2448 hours after the procedure or as told by your health care provider. Gently wash the incision site with plain soap and water. Pat the area dry with a clean towel. Do not rub the site. This may cause bleeding. Do not apply powder or lotion to the site. Keep the site clean and dry. Check your femoral site every day for signs of infection. Check for: Redness, swelling, or pain. Fluid or blood. Warmth. Pus or a bad smell. Activity If you were given a sedative during the procedure, it can affect you for several hours. Do not drive or operate machinery until your health care provider says that it is safe. Rest as told by your health care provider. Avoid sitting for a long time without moving. Get up to take short walks every 12 hours. This isimportant to improve blood flow and breathing. Ask for help if you feel weak or unsteady. Return to your normal activities as told by your health care provider. Ask your health care provider what activities are safe for you and when you can return to work. Avoid activities that take a lot of effort for the first 23 days after your procedure, or as long as directed. Do not lift anything that is heavier than 10 lb (4.5 kg), or the limit that you are told, until your health care provider says that it is safe. General instructions Take zqcl-pps-wxykodo and prescription medicines only as told by your health care provider. If you will be going home right after the procedure, plan to have a responsible adult care for you for the time you are told. This is important. Keep all follow-up visits. This is important. Contact a health care provider if: You have a fever or chills. You have any of these signs of infection at your incision site: Redness, swelling, or pain. Fluid or blood. Warmth. Pus or a bad smell. Get help right away if: The incision area swells very fast. The incision area is bleeding, and the bleeding does not stop when you hold steady pressure on the area. Your leg or foot becomes pale, cool, tingly, or numb. These symptoms may represent a serious problem that is an emergency. Do not wait to see if the symptoms will go away. Get medical help right away. Call your local emergency services (911 in the [place] Do not drive yourself to the hospital. Summary After the procedure, it is common to have bruising and tenderness that fade within 12 weeks. Check your femoral site every day for signs of infection. Do not lift anything that is heavier than 10 lb (4.5 kg), or the limit that you are told, until your health care provider says that it is safe. Get help right away if the incision area swells very fast, you have bleeding at the incision area that does not stop, or your leg or foot becomes pale, cool, or numb. This information is not intended to replace advice given to you by your health care provider. Make sure you discuss any questions you have with your health care provider. Document Revised: 12/23/2021 Document Reviewed: 05/24/2021 [employer] Patient Education 2023 [employer] Fall Prevention in the Home, Adult Falls can cause injuries and affect people of all ages. There are many simple things that you can do to make your home safe and to help prevent falls. If you need it, ask for help making these changes. What actions can I take to prevent falls? General information Use good lighting in all rooms. Make sure to: Replace any light bulbs that burn out. Turn on lights if it is dark and use night-lights. Keep items that you use often in pjqe-gv-jsrax places. Lower the shelves around your home if needed. Move furniture so that there are clear paths around it. Do not keep throw rugs or other things on the floor that can make you trip. If any of your floors are uneven, fix them. Add color or contrast paint or tape to clearly rhett and help you see: Grab bars or handrails. First and last steps of staircases. Where the edge of each step is. If you use a ladder or stepladder: Make sure that it is fully opened. Do not climb a closed ladder. Make sure the sides of the ladder are locked in place. Have someone hold the ladder while you use it. Know where your pets are as you move through your home. What can I do in the bathroom? Keep the floor dry. Clean up any water that is on the floor right away. Remove soap buildup in the bathtub or shower. Buildup makes bathtubs and showers slippery. Use non-skid mats or decals on the floor of the bathtub or shower. Attach bath mats securely with double-sided, non-slip rug tape. If you need to sit down while you are in the shower, use a non-slip stool. Install grab bars by the toilet and in the bathtub and shower. Do not use towel bars as grab bars. What can I do in the bedroom? Make sure that you have a light by your bed that is easy to reach. Do not use any sheets or blankets on your bed that hang to the floor. Have a firm bench or chair with side arms that you can use for support when you get dressed. What can I do in the kitchen? Clean up any spills right away. If you need to reach something above you, use a sturdy step stool that has a grab bar. Keep electrical cables out of the way. Do not use floor czech or wax that makes floors slippery. What can I do with my stairs? Do not leave anything on the stairs. Make sure that you have a light switch at the top and the bottom of the stairs. Have them installedif you do not have them. Make sure that there are handrails on both sides of the stairs. Fix handrails that are broken or loose. Make sure that handrails are as long as the staircases. Install non-slip stair treads on all stairs in your home if they do not have carpet. Avoid having throw rugs at the top or bottom of stairs, or secure the rugs with carpet tape to prevent them from moving. Choose a carpet design that does not hide the edge of steps on the stairs. Make sure that carpet isfirmly attached to the stairs. Fix any carpet that is loose or worn. What can I do on the outside of my home? Use bright outdoor lighting. Repair the edges of walkways and driveways and fix any cracks. Clear paths of anything that can make you trip, such as tools or rocks. Add color or contrast paint or tape to clearly rhett and help you see high doorway thresholds. Trim any bushes or trees on the main path into your home. Check that handrails are securely fastened and in good repair. Both sides of all steps should have handrails. Install guardrails along the edges of any raised decks or porches. Have leaves, snow, and ice cleared regularly. Use sand, salt, or ice melt on walkways during wintermonths if you live where there is ice and snow. In the garage, clean up any spills right away, including grease or oil spills. What other actions can I take? Review your medicines with your health care provider. Some medicines can make you confused or feel dizzy. This can increase your chance of falling. Wear closed-toe shoes that fit well and support your feet. Wear shoes that have rubber soles and low heels. Use a cane, walker, scooter, or crutches that help you move around if needed. Talk with your provider about other ways that you can decrease your risk of falls. This may includeseeing a physical therapist to learn to do exercises to improve movement and strength. Where to find more information Centers for Disease Control and Prevention, [place]: cdc.gov National [place] on Aging: ej.nih.gov National [place] on Aging: ej.nih.gov Contact a health care provider if: You are afraid of falling at home. You feel weak, drowsy, or dizzy at home. You fall at home. Get help right away if you: Lose consciousness or have trouble moving after a fall. Have a fall that causes a head injury. These symptoms may be an emergency. Get help right away. Call 911. Do not wait to see if the symptoms will go away. Do not drive yourself to the hospital. This information is not intended to replace advice given to you by your health care provider. Make sure you discuss any questions you have with your health care provider. Document Revised: 12/06/2022 Document Reviewed: 12/06/2022 [employer] Patient Education 2023 [employer] Fall Prevention in Hospitals, Adult Staying in the hospital puts you at risk of falling. Falls can cause serious injuries, but they canbe prevented. Make sure you know what puts you at risk for falling and what you and your health care team can do to prevent falls. If you or a loved one falls in the hospital, tell the hospital staff about it. What can increase my risk of falls? Factors that increase your risk of falling in the hospital include: Being in an unfamiliar environment, especially when using the bathroom at night. Having surgery or being on bed rest. Taking many medicines or certain types of medicines, such as sleeping pills. Some medicines can cause confusion, trouble with balance, dizziness, or low blood pressure. Having tubes in place, such as IVs or catheters. Other risk factors for falls while in the hospital include: Having trouble with hearing or vision. Having depression. Needing to use the toilet frequently. Having fallen during the past 3 months. What actions can I take to prevent falls? If you or a loved one has to stay in the hospital: Ask about which fall prevention strategies will be in place. Do not get up by yourself if you have been asked to call for help when getting up. Asking for help to get up is for your safety, and the staff is there to help you. Wear non-skid shoes or non-skid slippers. Get up slowly, and sit at the side of the bed for a few minutes before standing up. Keep items you need close to you, such as the call button or a phone, so that you do not need to reach for them. Wear eyeglasses or hearing aids as told by your health care provider. Have someone stay in the hospital with you or your loved one. Ask if sleeping pills or other medicines that can cause confusion or dizziness are necessary if they are prescribed to you or a loved one. What does the hospital staff do to help prevent falls? Hospitals have systems in place to prevent falls and accidents, which may include: Discussing your fall risk and making a personalized fall prevention plan. Checking in regularly to see if you need help. Some hospitals use video monitoring that allows a staff member to come to you if you need help. Placing an armband on your wrist or a sign near your room to alert other staff of your needs. Using an alarm on your hospital bed. This is an alarm that goes off if you get out of bed and forget to call for help. Keeping the bed in a low and locked position. Keeping the area around the bed and bathroom well-lit and not cluttered. Having a staff person stay with you (one-on-one observation), even when you are using the bathroom.This is for your safety. Using safety equipment, such as: A belt around your waist. Walkers, crutches, and other devices for support. Safety beds, such as low beds, or cushions on the floor next to the bed. What other actions can I take to prevent falls? Check in regularly with your provider or pharmacist to review all medicines that you take. Make sure that you have a regular exercise program to stay physically fit. This will help you maintain your balance. Talk with a physical therapist if recommended by your provider. A physical therapist can help you learn to do exercises to improve movement and strength. If you are over 65 years old: Ask your provider if you need a calcium or vitamin D supplement. Have your eyes and hearing checked every year. Have your feet checked every year. This information is not intended to replace advice given to you by your health care provider. Make sure you discuss any questions you have with your health care provider. Document Revised: 12/06/2022 Document Reviewed: 12/06/2022 [employer] Patient Education 2023 [employer] Moderate Conscious Sedation, Adult, Care After After the procedure, it is common to have: Sleepiness for a few hours. Impaired judgment for a few hours. Trouble with balance. Nausea or vomiting if you eat too soon. Follow these instructions at home: For the time period you were told by your health care provider: Rest. Do not participate in activities where you could fall or become injured. Do not drive or use machinery. Do not drink alcohol. Do not take sleeping pills or medicines that cause drowsiness. Do not make important decisions or sign legal documents. Do not take care of children on your own. Eating and drinking Follow instructions from your health care provider about what you may eat and drink. Drink enough fluid to keep your urine pale yellow. If you vomit: Drink clear fluids slowly and in small amounts as you are able. Clear fluids include water, ice chips, low-calorie sports drinks, and fruit juice that has water added to it (diluted fruit juice). Eat light and bland foods in small amounts as you are able. These foods include bananas, applesauce, rice, lean meats, toast, and crackers. General instructions Take nurl-yxa-rwuxdat and prescription medicines only as told by your health care provider. Have a responsible adult stay with you for the time you are told. Do not use any products that contain nicotine or tobacco. These products include cigarettes, chewing tobacco, and vaping devices, such as e-cigarettes. If you need help quitting, ask your health careprovider. Return to your normal activities as told by your health care provider. Ask your health care provider what activities are safe for you. Your health care provider may give you more instructions. Make sure you know what you can and cannot do. Contact a health care provider if: You are still sleepy or having trouble with balance after 24 hours. You feel light-headed. You vomit every time you eat or drink. You get a rash. You have a fever. You have redness or swelling around the IV site. Get help right away if: You have trouble breathing. You start to feel confused at home. These symptoms may be an emergency. Get help right away. Call 911. Do not wait to see if the symptoms will go away. Do not drive yourself to the hospital. This information is not intended to replace advice given to you by your health care provider. Make sure you discuss any questions you have with your health care provider. Document Revised: 10/18/2022 Document Reviewed: 10/18/2022 [employer] Patient Education 2023 [employer] Moderate Conscious Sedation, Adult Sedation is the use of medicines to help you relax and not feel pain. Moderate conscious sedation is a type of sedation that makes you less alert than normal. You are still able to respond to instructions, touch, or both. This type of sedation is used during short medical and dental procedures. It is milder than deep sedation, which is a type of sedation you cannot be easily woken up from. It is also milder than general anesthesia, which is the use of medicines to make you fall asleep. Moderate conscious sedation lets you return to your normal activities sooner. Tell a health care provider about: Any allergies you have. All medicines you are taking, including vitamins, herbs, steroids, eye drops, creams, and itis-nbb-ndoamlx medicines. Any problems you or family members have had with anesthesia. Any bleeding problems you have. Any surgeries you have had. Any medical conditions you have. Whether you are or may be . Any recent alcohol, tobacco, or drug use. What are the risks? Your health care provider will talk with you about risks. These may include: Oversedation. This is when you get too much medicine. Nausea or vomiting. Allergic reaction to medicines. Trouble breathing. If this happens, a breathing tube may be used. It will be removed when you can breathe better on your own. Heart trouble. Lung trouble. Emergence delirium. This is when you feel confused while the sedation wears off. This gets better with time. What happens before the procedure? When to stop eating and drinking Follow instructions from your health care provider about what you may eat and drink. These may include: 8 hours before your procedure Stop eating most foods. Do not eat meat, fried foods, or fatty foods. Eat only light foods, such as toast or crackers. All liquids are okay except energy drinks and alcohol. 6 hours before your procedure Stop eating. Drink only clear liquids, such as water, clear fruit juice, black coffee, plain tea, and sports drinks. Do not drink energy drinks or alcohol. 2 hours before your procedure Stop drinking all liquids. You may be allowed to take medicines with small sips of water. If you do not follow your health care provider's instructions, your procedure may be delayed or canceled. Medicines Ask your health care provider about: Changing or stopping your regular medicines. These include any diabetes medicines or blood thinnersyou take. Taking medicines such as aspirin and ibuprofen. These medicines can thin your blood. Do not take them unless your health care provider tells you to. Taking zhrc-mhk-bubaqkb medicines, vitamins, herbs, and supplements. Tests and exams You may have an exam or testing. You may have a blood or urine sample taken. General instructions Do not use any products that contain nicotine or tobacco for at least 4 weeks before the procedure.These products include cigarettes, chewing tobacco, and vaping devices, such as e-cigarettes. If you need help quitting, ask your health care provider. If you will be going home right after the procedure, plan to have a responsible adult: Take you home from the hospital or clinic. You will not be allowed to drive. Care for you for the time you are told. What happens during the procedure? You will be given the sedative. It may be given: As a pill you can take by mouth. It can also be put into the rectum. As a spray through the nose. As an injection into muscle. As an injection into a vein through an IV. You may be given oxygen as needed. Your blood pressure, heart rate, breathing rate, and blood oxygen level will be monitored during the procedure. The medical or dental procedure will be done. The procedure may vary among health care providers and hospitals. What happens after the procedure? Your blood pressure, heart rate, breathing rate, and blood oxygen level will be monitored until youleave the hospital or clinic. You will get fluids through an IV as needed. Do not drive or operate machinery until your health care provider says that it is safe. This information is not intended to replace advice given to you by your health care provider. Make sure you discuss any questions you have with your health care provider. Document Revised: 10/18/2022 Document Reviewed: 10/18/2022 [employer] Patient Education 2023 [employer] Transcatheter Aortic Valve Replacement, Care After The following information offers guidance on how to care for yourself after your procedure. Your health care provider may also give you more specific instructions. If you have problems or questions, contact your health care provider. What can I expect after the procedure? After the procedure, it is common to have: Pain around your incision areas. Bruising and a small lump near your catheter insertion areas. Tiredness (fatigue). Follow these instructions at home: Medicines Take xmri-mhq-uqwzxuc and prescription medicines only as told by your health care provider. If you were prescribed antibiotics, take them as told by your health care provider. Do not stop using the antibiotic even if you start to feel better. Ask your health care provider if the medicine prescribed to you can cause constipation. You may need to take these actions to prevent or treat constipation: Take yhmk-uxv-fozcwes or prescription medicines. Eat foods that are high in fiber, such as beans, whole grains, and fresh fruits and vegetables. Limit foods that are high in fat and processed sugars, such as fried or sweet foods. Bleeding precautions If you are taking blood thinners: Talk with your health care provider before you take any medicines that contain aspirin or NSAIDs, such as ibuprofen. These medicines increase your risk for dangerous bleeding. Take your medicine exactly as told, at the same time every day. Avoid activities that could cause injury or bruising. Follow instructions about how to prevent falls. Wear a medical alert bracelet or carry a card that lists what medicines you take. Eating and drinking Follow instructions from your health care provider about eating or drinking restrictions. Eat a heart-healthy diet. This includes lean proteins, whole grains, and plenty of fresh fruits andvegetables. Avoid foods that are high in salt (sodium), saturated fat, or sugar. Check ingredients and nutrition facts on packaged foods and beverages. Avoid canned or highly processed foods. Avoid fried foods. Ask your health care provider if your fluid intake is restricted. If not, drink enough fluid to keep your urine pale yellow. Alcohol use If you drink alcohol: Limit how much you have to: 01 drink a day for women who are not . 02 drinks a day for men. Know how much alcohol is in your drink. In the [place] one drink equals one 12 oz bottle of beer (355mL), one 5 oz glass of wine (148 mL), or one 1 oz glass of hard liquor (44 mL). Incision care Follow instructions from your health care provider about how to take care of your incisions. Make sure you: Wash your hands with soap and water for at least 20 seconds before and after you change your bandage (dressing). If soap and water are not available, use hand rpg programmer analyst. Change your dressing as told by your health care provider. Leave stitches (sutures), glue, or adhesive strips in place. These skin closures may need to stay in place for 2 weeks or longer. If adhesive strip edges start to loosen and curl up, you may trim theloose edges. Do not remove adhesive strips completely unless your health care provider tells you todo that. Check your incisions or puncture areas every day for signs of infection. Check for: More redness, swelling, or pain. Fluid or blood. Warmth. Pus or a bad smell. Activity Rest as told by your health care provider. Take naps as needed throughout the day. Do not sit for a long time without moving. Get up to take short walks every 12 hours. This will improve blood flow and breathing. Ask for help if you feel weak or unsteady. Avoid climbing stairs for about one week. You may have to avoid lifting. Ask your health care provider how much you can safely lift. Ask your health care provider when it is safe for you to drive or use machinery. Do not drive untilyour health care provider approves. Exercise regularly, as told by your health care provider. Ask your health care provider if you will be doing a formal cardiac exercise program (cardiac rehabilitation). Return to your normal activities as told by your health care provider. Ask your health care provider what activities are safe for you. Lifestyle Do not use any products that contain nicotine or tobacco. These products include cigarettes, chewing tobacco, and vaping devices, such as e-cigarettes. If you need help quitting, ask your health careprovider. Resume sexual activity as told by your health care provider. If you have problems getting or keeping an erection (erectile dysfunction), do not use medicines to treat it unless your health care provider approves. Work with your health care provider to manage your blood pressure and any other heart conditions that you have. Maintain a healthy weight. General instructions Do not take baths, swim, or use a hot tub until your health care provider approves. You may take showers. Do not strain to have a bowel movement. Wear compression stockings as told by your health care provider. These stockings help to prevent blood clots and reduce swelling in your legs. Avoid airplane travel for as long as you are told. When you travel, bring along a list of your medicines and a record of your medical history. Carry your medicines with you. Future health care visits Keep all follow-up visits. Tell all your health care providers, including your dentists: That you have an artificial aortic valve. That you have or have had heart disease. To prevent infection, you may need to take antibiotics for dental procedures. Contact a health care provider if: You have sudden, unexplained weight changes. You have any signs of infection at your incision or puncture area. You have a fever. You have fast or irregular heartbeats (palpitations). You are light-headed or you faint. Get help right away if: An incision area swells very quickly. An incision is bleeding, and the bleeding does not stop after pressure is applied. The area near or just beyond an incision tingles or becomes pale, cool, or numb. You develop chest pain. You develop shortness of breath or have trouble breathing. These symptoms may be an emergency. Get help right away. Call 911. Do not wait to see if the symptoms will go away. Do not drive yourself to the hospital. Summary After your procedure, it is common to have bruising and a small lump around your catheter insertionsite. Check your incisions or puncture areas every day for signs of infection. You may have to avoid lifting. Ask your health care provider how much you can safely lift. Do not drive until your health care provider approves. Tell all your health care providers that you have an artificial aortic valve. This information is not intended to replace advice given to you by your health care provider. Make sure you discuss any questions you have with your health care provider. Document Revised: 05/23/2022 Document Reviewed: 05/23/2022 [employer] Patient Education 2023 [email or web address]. Transcatheter Aortic Valve Replacement Transcatheter aortic valve replacement (TAVR) is a procedure to place an artificial aortic valve inthe heart. This procedure is also called transcatheter aortic valve implantation (MEKA). The aorticvalve controls blood flow between the heart and the main blood vessel that supplies blood to the body (aorta). TAVR may be needed if you have symptoms caused by a stiff or tight aortic valve (aortic stenosis) or if the aortic valve is leaking (aortic regurgitation). During TAVR, a flexible tube (catheter) is placed through an incision in your groin, chest, or neckand is guided to your aortic valve. Then, the artificial valve is moved through the catheter and into the aortic valve. The artificial valve is then expanded and placed within your old valve. The oldvalve is not removed. The new valve takes over the function of the old valve, and it improves bloodflow through your heart. Tell a health care provider about: Any allergies you have. All medicines you are taking, including blood thinners, vitamins, herbs, eye drops, creams, and wsel-apn-gfclzpv medicines. Any problems you or family members have had with anesthetic medicines. Any bleeding problems you have. Any surgeries you have had. Any medical conditions you have. Whether you are or may be . What are the risks? Generally, this is a safe procedure. However, problems may occur, including: Infection. Bleeding. Allergic reactions to medicines. Damage to nearby structures or organs, such as blood vessels or the heart. Heart problems, such as abnormal heart rhythms (arrhythmia) or heart attack. Need for a pacemaker. Failure of the artificial valve. Other risks include: Blood clots. Kidney failure. Stroke. What happens before the procedure? When to stop eating and drinking Follow instructions from your health care provider about what you may eat and drink. These may include: 8 hours before your procedure Stop eating most foods. Do not eat meat, fried foods, or fatty foods. Eat only light foods, such as toast or crackers. All liquids are okay except energy drinks and alcohol. 6 hours before your procedure Stop eating. Drink only clear liquids, such as water, clear fruit juice, black coffee, plain tea, and sports drinks. Do not drink energy drinks or alcohol. 2 hours before your procedure Stop drinking all liquids. You may be allowed to take medicines with small sips of water. If you do not follow your health care provider's instructions, your procedure may be delayed or canceled. Medicines Ask your health care provider about: Changing or stopping your regular medicines. These include any diabetes medicines or blood thinnersyou take. Taking medicines such as aspirin and ibuprofen. These medicines can thin your blood. Do not take these medicines unless your health care provider tells you to take them. Taking odlp-jqr-pdtpyvp medicines, vitamins, herbs, and supplements. You may need to take blood thinners before surgery. If you are given blood thinners, take them exactly as you are told. Tests You will have testing, including: An echocardiogram, or echo. This checks how well your heart and heart valves are working. CT scan to check your aortic valve and determine if your valve can be replaced with a TAVR valve. A stress test to check your aortic valve. A coronary angiogram. During this procedure, a catheter is inserted into a blood vessel and guided into your heart to check pressures, check your arteries, and take images of the heart. You may also have: Tests of lung function. A chest X-ray. Urine test. You will have blood samples taken to monitor your hemoglobin, platelets, kidney function, and saltsand minerals in your body (electrolytes). Surgery safety Ask your health care provider: How your surgery site will be marked. What steps will be taken to help prevent infection. These steps may include: Removing hair at the surgery site. Washing skin with a germ-killing soap. Taking antibiotic medicine. General instructions Do not use any products that contain nicotine or tobacco for at least 4 weeks before the procedure.These products include cigarettes, chewing tobacco, and vaping devices, such as e-cigarettes. If you need help quitting, ask your health care provider. If you will be going home right after the procedure, plan to have a responsible adult: Take you home from the hospital or clinic. You will not be allowed to drive. Care for you for the time you are told. You will be asked to obtain "valve surgery clearance" from your dentist. This is to make sure that you do not have a collection of germs (abscess) in your mouth that can cause an infection of the newaortic prosthesis. What happens during the procedure? IVs will be inserted into veins in your arms. You may be given: A sedative. This helps you relax. Anesthesia. This will: Numb the area where the catheter will be inserted. Make you fall asleep for surgery. Small incisions or a puncture will be made in one or more of these places: Your groin. This is the most common place. Your neck. Your upper chest, near your collarbone. The left side of your chest. Catheters will be threaded into your incisions and into blood vessels that lead to your heart. Ongoing X-ray images (fluoroscopy) will be used to guide the catheters to the right places in your heart. A wire will be placed through the catheter inside your aortic valve. A balloon at the end of this catheter may be inflated to open your aortic valve. Another wire will be placed through the catheter inside your aortic valve. This wire will be used to help position and inflate your artificial valve. Tests will be done to make sure your new valve and your heart are working properly. Your incisions will be closed with stitches (sutures), skin glue, or adhesive strips. Bandages (dressings) will be placed over your incisions. The procedure may vary among health care providers and hospitals. What happens after the procedure? Your blood pressure, heart rate and rhythm, breathing rate, and blood oxygen level will be monitored until you leave the hospital or clinic. You may continue to receive fluids and medicines through an IV. You will be given pain medicine as needed. You may need to lie still in bed for several hours. When you are allowed to get up, you will be encouraged to move around. You may have to wear compression stockings. These stockings help to prevent blood clots and reduce swelling in your legs. You will be shown how to do breathing exercises to prevent lung infection. Do not drive or operate machinery until your health care provider says that it is safe. Summary Transcatheter aortic valve replacement (TAVR) is a procedure to place an artificial aortic valve inthe heart. You may need TAVR if you have a stiff or tight aortic valve (aortic stenosis) or if it is leaking (aortic regurgitation). After the procedure, you may need to lie still in bed for several hours. When you are allowed to get up, you will be encouraged to move around. This information is not intended to replace advice given to you by your health care provider. Make sure you discuss any questions you have with your health care provider. Document Revised: 05/23/2022 Document Reviewed: 05/23/2022 [employer] Patient Education 2023 [employer] Patient Care team information Care Team Personnel Name: DO Keane Brian R Position: Referring Member Role: Primary Care Provider Address: [facility] Physician [address] [place] [address] Care Team Related Persons Name: DONALDO PATRICIA
[2024-04-10] MEDS: LEVOTHYROXINE SODIUM 125 MCG TABLET PO SCH (06:18)
[2024-04-10 07:26] LABS: Basophils # (auto) 0.04 K/uL (0.00-0.20); Basophils % (auto) 1.2 %; Eosinophils # (auto) 0.15 K/uL (0.00-0.50); Eosinophils % (auto) 4.5 %; Hematocrit (blood only) 39.1 % (42.0-52.0); Hemoglobin 13.4 g/dl (14.0-18.0); Immature Granulocytes # (auto) 0.01 K/uL (0.01-0.20); Immature Granulocytes % (auto) 0.3 %; Lymphocytes # (auto) 1.06 K/uL (1.20-3.40); Lymphocytes % (auto) 31.9 %; Mean Corpuscular Hemoglobin 32.8 pg (25.0-34.0); Mean Corpuscular Hgb Conc 34.3 g/dL (32.0-36.0); Mean Corpuscular Volume 95.6 fL (80.0-100.0); Mean Platelet Volume 10.3 fL (9.4-12.4); Monocytes # (auto) 0.66 K/uL (0.11-0.59); Monocytes % (auto) 19.9 %; Neutrophils % (auto) 42.2 %; Platelet Count 110 K/uL (130-400); RDW Coefficient of Variation 13.1 % (11.5-14.5); RDW Standard Deviation 46.1 fL (36.4-46.3); Red Blood Count 4.09 M/uL (4.70-6.10); White Blood Count 3.32 K/ul (4.8-10.8)
[2024-04-10 07:45] LABS: Albumin Level 3.5 gm/dl (3.4-5.0); BUN Creatinine Ratio 24.1 (10-20); Calcium 9.2 mg/dl (8.6-10.3); Creatinine Clr Calc Pharmacy 78.4 ml/min; Magnesium 2.1 mg/dl (1.7-2.4); Phosphorus 3.8 mg/dl (2.5-4.9)
[2024-04-10 07:51] LABS: Troponin I High Sensitivity 20.2 pg/ml (0-20)
[2024-04-10] MEDS: amLODIPine BESYLATE 5 MG TAB PO SCH (08:44)
[2024-04-10] MEDS: ROSUVASTATIN CALCIUM 20 MG TAB PO SCH (08:44)
--- NOTE | 2024-04-10 10:05 | XRay Report ---
SUPINE PORTABLE AP CHEST RADIOGRAPH CLINICAL HISTORY: Intubation. COMPARISON STUDY: Chest radiograph April 09, 2024. FINDINGS: Tip tip of the endotracheal tube is 5.4 cm above the yaneth. Electronic device projects ove r the left chest. There is a prosthetic cardiac valve. No pneumothorax or pleural effusion is identif ied on supine exam. There is no radiographic evidence for pulmonary edema. Bilateral perihilar inters titial prominence may be due to supine technique. IMPRESSION: 1. Tip of endotracheal tube 5.4 cm above the yaneth. 2. No radiographic evidence for pulmonary edema. No pneumothorax on supine exam. ACT 112: Negative or not required by law. Electronically signed by: Sammy Hayward M.D. 04/10/2024 10:04 AM
[2024-04-10] MEDS: BUPIVACAINE 0.25% PF 30 ML VIAL ONE (10:16)
[2024-04-10] MEDS: WATER, STERILE FOR INJ 10 ML VIAL ONE (10:17)
[2024-04-10] MEDS: LIDOCAINE 1% LOCAL 20 ML VIAL ONE (10:17)
[2024-04-10] MEDS: VANCOMYCIN HCL 1000MG/20ML VIAL ONE (10:17)
[2024-04-10] MEDS: ceFAZolin 330 MG/ML 1 GM VIAL ONE (10:17)
[2024-04-10] MEDS: fentaNYL citrate PF 100 MCG/2 ML VIAL ONE (10:37)
[2024-04-10] MEDS: PROPOFOL IV EMULSION 10 MG/ML 100 ML VIAL IV ONE (10:37)
[2024-04-10] MEDS: RAPID SEQUENCE INDUCTION BAG ONE (10:37)
[2024-04-10] MEDS: VECURONIUM BROMIDE 10 MG VIAL IV ONE (10:38)
[2024-04-10] MEDS: MIDAZOLAM HCL 1 MG/ML 2ML VIAL ONE (10:38)
[2024-04-10] MEDS: MIDAZOLAM HCL 5 MG/ML 1 ML VIAL ONE (10:38)
--- NOTE | 2024-04-10 11:09 | Post Anesthesia Assessment ---
Date of Service April 10, 2024 Post Sedation Assessment Vital Signs Temp Pulse Pulse Resp BP BP Pulse Ox 04/10/24 08:30 04/10/24 08:15 36.7 C 59 L 19 144/86 H 92 04/10/24 07:17 59 L 04/10/24 02:34 36.6 C 55 L 18 125/61 97 04/09/24 23:40 36.5 C 69 18 155/80 H 94 04/09/24 23:33 70 04/09/24 22:51 72 18 144/118 H 94 04/09/24 22:00 65 18 156/86 H 97 04/09/24 20:38 66 16 149/81 H 97 04/09/24 20:02 65 04/09/24 20:00 95 04/09/24 19:44 36.4 C L 72 16 162/92 H 98 O2 Del Method 04/10/24 08:30 Room Air 04/10/24 08:15 Room Air 04/10/24 07:17 04/10/24 02:34 Room Air 04/09/24 23:40 Room Air 04/09/24 23:33 04/09/24 22:51 Room Air 04/09/24 22:00 Room Air 04/09/24 20:38 Room Air 04/09/24 20:02 04/09/24 20:00 Room Air 04/09/24 19:44 Room Air Recovery Score Activity: Moves 4 extremities Circulation: +/-20% PreAnes Value Consciousness: Arouseable (by name) Oxygen Saturation: O2 needed for >90% Discharge Sedation Level of Care: Fast Track Phase II Post Sedation Plan On clinical assessment, the patient appears to have tolerated the sedation without complications. Patient is recovering as anticipated. Patient will continue to be monitored by nursing and may be discharged when sedation discharge criteria are met per below protocol. Upon Completions of procedure up to 15 minutes continue every 5 minute vital signs and the P.A.R. score; then discharge to a Phase I or Fast Track to Phase II per the following guidelines: * Discharge Patient to appropriate Phase II area if PAR is 8 or greater or return to pre- procedure baseline. The post - procedure orders will be as directed. * If PAR score is less than 8 or not return to pre-procedure baseline then patient will follow Phase I monitoring till PAR is reached for Phase II. The Phase I may be done in procedure room or may call to secure a Phase I area. * If naloxone or flumazenil are used for reversal, hold in Phase I for continued monitoring from when last reversal dose was given for a minimum of 60 minutes or longer pending the nurse and/or physician discretion of patient condition before discharge to Phase II. Please call the Sedation Physician to re-evaluate and complete post-note for discharge to Phase II area. Do NOT discharge from procedure sedation or Phase 1 until post- sedation evaluat ion note is complete by procedure /sedation MD Sedation Discharge Instructions to be given to the patient at discharge to home.
--- NOTE | 2024-04-10 11:10 | Electrophysiology Report ---
Date of Service April 10, 2024 Electrophysiology Procedure Electrophysiology Procedure Report Procedure performed: Implantation of dual-chamber permanent pacemaker with left bundle pacing lead Staff matcher offbearer: Robin Miller MD Indication: The patient is a 78-year-old gentleman who recently underwent a percutaneous aortic valve replacement. 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 A dual-chamber device was selected is currently in sinus rhythm and wished to maintain AV synchrony. Procedure in detail: He was taken to the electrophysiology suite in a fasting state. A preoperative antibiotic had been administered. The patient was monitored electrocardiographically throughout today's procedure and conscious sedation was administered per protocol. The left upper pectoral area was prepped and draped in usual sterile fashion. This area was anesthetized using subcutaneous administration of a xylocaine solution. An incision was made at this site and carried down to the prepectoralis fascia using sharp dissection. Electrocautery was also employed for dissection as well as for hemostasis. A device pocket was fashioned tissues above the pectoralis muscle. Subsequent to this maneuver the left axillary vein was accessed using modified Seldinger technique. A sheath was placed over guidewire and used to facilitate passage of a guiding catheter for mapping of the interventricular septum. Once an appropriate location was identified a pacing lead was advanced into the interventricular septum until the appropriate electrophysiologic characteristics were obtained. At this point the guiding catheter was removed. The proximal portion of the lead was then sutured the prepectoralis fascia using nonabsorbable suture. A sheath was placed over the remaining guidewire and used to facilitate passage of a pacing lead to the right atrium under fluoroscopic guidance. Adequate sensing and threshold parameters were obtained prior to active fixation of this lead to the endocardial surface. The proximal portion of the leads were then sutured the prepectoral fascia using nonabsorbable suture. The device pocket was irrigated with antibiotic solution. The leads were then attached to the device. The device and leads were then placed in the pocket and pocket was closed in 3 layer s of absorbable suture. Steri-Strips and sterile dressing were applied. The device was tested noninvasively prior to conclusion the procedure. The patient tolerated procedure well there no immediate complications. Equipment used: New pulse generator: [employer] 51 Auto. Model number: [id number] serial number [id number] Right atrial lead: [employer]. Model number: 5076 serial number [id number] serial number [id number] Right ventricular lead: [employer]. Model number: 3830 serial number [id number] Measured data: Right atrial lead: Patient was in atrial fibrillation at the conclusion of the procedure. Sensing was 1.8 mV. Pacing threshold could not be determined. Pacing impedance was 665 ohms Right ventricular lead: R waves measured 5.1 mV. Pacing threshold 0.5 V at 0.4 ms with a pacing impedance of 855 ohms Impression: Successful implantation of dual-chamber permanent pacemaker with left bundle pacing lead [facility] Electrophysiology codes Pacing Procedure 1: Pacin Insert/Replace Pacer A & V PG Moderate Sedation Codes Moderate Sedation Codes Procedure 1: Sedation/Anesthesia: 21329 Mod Sedation by the same physician;Init15 Min Child Age 5 & Up Procedure 2: Sedation/Anesthesia: 12796 Mod Sedation by the same physician; Ea [id number] Minutes
--- NOTE | 2024-04-10 11:28 | Procedure Note ---
Procedure Note Date of Service April 10, 2024 Procedure Date: [noted above] Procedure: Endotracheal intubation Pre-procedure Diagnosis: Code purple, hemodynamic instability given complete heart block Post-procedure Diagnosis: same as above Prior to Procedure: Informed Consent: emergent Attending Staff: Tiff Weems DO The identity of the patient was confirmed and a bedside time out was performed. Description of Procedure: Patient was evaluated and required intubation for impending respiratory failure. The patient was prepared in the usual fashion. A Fletcher 4 laryngoscope was used. A 7.5 mm inner diameter endotracheal tube was placed endotracheally to 21 cm at the teeth. A grade 1 view was obtained. The endotracheal tube was noted to pass through the vocal cords. Chest rise was bilateral. Bilateral breath sounds were heard without air sounds in the abdomen. Mist was noted in the endotracheal tube. End-tidal CO2 measurement was positive. Very quickly the endotracheal tube was noted not to retained air. The endotracheal tube necessitated change secondary to incompetent seal. A MAC 3 laryngoscope was used. The endotracheal tube with the incompetent balloon was noted to be through the vocal cords this was removed and replaced with an 8.0 endotracheal tube. The endotracheal tube was noted to pass through the vocal cords. Chest rise was bilateral. Bilateral breath sounds were heard without air sounds in the abdomen. Mist was noted in the endotracheal tube. End-tidal CO2 measurement was positive. Chest x-ray shows proper endotracheal tube placement. Complications: [None] Findings: Not applicable Specimens: Not applicable Estimated blood loss: Zero [facility] Procedure Codes (Charges) Resuscitation Resuscitation: 56746 Endotracheal Intubation, emergency Coding CPT Codes Resuscitation - Resuscitation: 77850 Endotracheal Intubation, emergency ([id number]) Additional Codes Date of Service ([email or web address])
--- NOTE | 2024-04-10 11:32 | Procedure Note ---
Procedure Note Date of Service April 10, 2024 This is a highlight summary of a code purple. Please refer to nursing flowsheet for further documentation. Briefly patient is a 78-year-old male who had an episode of extreme bradycardia/heart block/asystole. Upon my arrival in the patient's room the patient was being actively transcutaneously paced. He would intermittently experience syncope, presumptively from inability to capture. The pacemaker was adjusted, cardiology had been notified and evaluated the patient at bedside. Ultimately he was transferred to the cardiac Social Work Administrator for definitive permanent pacemaker. In the course of the workup the patient required vasoactive medication administration. At 1 point he appeared to lose capture and required CPR for approximately 1 to 2 minutes and had return of circulation with administration of 0.2 mg epinephrine bolus push initiation of an epinephrine infusion. After definitively securing the airway the patient was transferred to the cardiac Social Work Administrator. He was given neuromuscular blockade to facilitate our ability to monitor a pulse. Transcutaneous pacemaker settings were as rate of 80 mA of 80 with palpable pulses. Supervising Physician Co-Signing Physician Notes Please add code [id number] to this procedure note regarding management of transcutaneous pacemaker settings [facility] [place] Procedure Codes (Charges) Resuscitation Resuscitation: [id number] Heart/lung resuscitation CPR (Please add code [id number] to this procedure note) Coding CPT Codes Resuscitation - Resuscitation: 43893 Heart/lung resuscitation CPR ([id number]) Additional Codes Date of Service (PG.SURGERY)
--- NOTE | 2024-04-10 11:53 | Critical Care Consultation ---
Date of Consultation April 10, 2024 Assessment & Plan (1) Heart block: Reason Critically Ill: Complete heart block status post TAVR PLAN: Neuro: Syncope -Improved with permanent pacemaker Resp: Moderate obstructive sleep apnea -Records note inability to tolerate CPAP -End-tidal CO2 monitoring while patient recovering from sedation CV: Complete heart block -Permanent pacemaker inserted Hypertension -Amlodipine 5 mg ID: Afebrile GI/Nutrition: Dyslipidemia -Continue rosuvastatin Heme: Anemia NOS DVT prophylaxis: SCDs Endocrine: ICU hyperglycemia protocol Hypothyroid -Continue 125 mcg levothyroxine Vascular access: Peripheral IVs Code Status: Full code Disposition: ICU (2) HTN (hypertension): (3) S/P TAVR (transcatheter aortic valve replacement): (4) Near syncope: (5) Moderate obstructive sleep apnea: Supervising Physician Co-Signing Physician Notes I have personally spent 35 minutes of critical care time in the direct managem ent of this patient. This is a life/limb threatening event. This includes time spent evaluating patient, direct bedside care, chart review, placing orders, interpretation of diagnostic studies, discussion with consultants, patient, and/or family members regarding treatment decisions, as well as other required patient management activities. This time is exclusive of all separately billable procedures, and teaching time and separate from and in addition to any other critical care service time. History of Present Illness Reason for Consultation: Impending respiratory failure status postintubation during hemodynamic instability secondary to complete heart block Attending Physician: Mak Jansen History of Present Illness History is limited secondary to urgency of clinical scenario. Patient unable to by enlarge participate in history taking due to hemodynamic instabilities. History is otherwise obtained from prior records as well as patient's . Patient is a 78-year-old male whose past medical history includes hypertension hypothyroidism hyperlipidemia who had a TAVR performed at [facility] on April 05, 2024. Reportedly he had a temporary pacemaker but had no events and was reported to be asymptomatic prior to discharge. 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 Yesterday he had 2 episodes of being lightheaded or dizzy he was contacted by the Medical Center and told to go to [facility] for pacemaker placement. A near syncopal event occurred while driving and he diverted to [facility]. He was monitored overnight on telemetry. This morning patient had an episode with a greater than 6-second pause/asystole which responded to transcutaneous pacemaking. Please refer to nursing flowsheet regarding code purple and subsequent interventions including intubation and CPR. Ultimately patient went to the cardiac Correspondence Analyst and had a pacemaker placed by electrophysiology. He was transferred to the ICU for post intubation management. Upon arrival in the ICU the patient had sustained tetany was able to follow complex commands and was extubated. Allergies Allergy/AdvReac Type Severity Reaction Status Date / Time No Known Drug Allergies Allergy Verified 03/28/24 08:29 Home Medications Medication Instructions Recorded Confirmed Type sildenafil 50 mg tablet See Rx Instructions .Route 05/30/23 03/28/24 Rx .COMPLEX #6 tabs amlodipine 5 mg tablet 5 mg PO QAM #90 tabs 10/13/23 03/28/24 Rx levothyroxine 125 mcg tablet 125 mcg PO QAM #90 tabs 01/09/24 03/28/24 Rx rosuvastatin 20 mg tablet 20 mg PO DAILY 02/15/24 03/28/24 History amoxicillin 875 mg tablet 875 mg PO BID 5 days #10 tabs 03/28/24 03/28/24 Rx Patient History Medical History Chronic sinusitis Nasal septal deviation History of COVID-19 (07/2023) Symptoms resolved Chronic osteoarthritis Aortic stenosis Echo 02/09/24: Severe aortic stenosis (AVAI 0.55cm2, AV MG 42mmhg) Follows with Dr. Mensah Moderate obstructive sleep apnea Not currently using any device, unable to tolerate CPAP GERD (gastroesophageal reflux disease) Hypothyroidism History of radioactive iodine thyroid ablation Bruxism HLD (hyperlipidemia) Psoriasis Surgical History History of colonoscopy History of evacuation of hematoma Groin S/P knee surgery Right S/P inguinal hernia repair S/P hip replacement Left S/P cataract surgery Family History Father Acute myocardial infarction Hypertension Cardiac disorder Sister Thyroid disorder Son Epilepsy Daughter Von Willebrand disease, type I Other Myocardial infarction Denies family history of Ovarian cancer Prostate cancer Breast cancer Lung cancer Colorectal cancer Social History Smoking Status: Never smoker Second Hand Exposure: No; Do You Dip or Chew Tobacco: No; Hx Alcohol Use: Yes Alcohol type: beer Alcohol Intake Frequency: 4 or More x per/Week Hx Substance Use: No Preferred Language: Nigerian Communication Ability: Effective Visual Impairment: Limited Hearing Ability: Normal 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: No Beliefs That Will Affect Care: Lutheran Lutheran Beliefs: Tenriism marital status: Current Living Situation: Spouse current occupational status: employed and retired 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 How many Children do You have: 3 Feels Safe at Home: Yes Childhood Exposure to Second-Hand Smoke: Yes (father smoked cigars ) Diet: regular caffeine: Yes Dental Care, Regularly: Yes Physical Activity Frequency: Daily Physical Activity Frequency Comment: bicycles/walk Seatbelt Use: always Sunscreen Use: Yes (sometimes) Assistive Devices: None Physical Exam Physical Exam: General: Occasional sonorous respirations Skin: Cool with mild diaphoresis Head: Atraumatic Ears, nose, mouth and throat: airway patent Cardiovascular: Poor capillary refill, transcutaneous pacer in place, does have palpable pulse Respiratory: no respiratory distress Gastrointestinal: Non distended Musculoskeletal: No deformity Results & Data Results & Data Vital Signs (Past 12 Hours) Vital Signs Temp Pulse Pulse Resp BP Pulse Ox O2 Del Method 04/10/24 08:30 Room Air 04/10/24 08:15 36.7 C 59 L 19 144/86 H 92 Room Air 04/10/24 07:17 59 L 04/10/24 02:34 36.6 C 55 L 18 125/61 97 Room Air Critical Care Results & Data Vital Signs (Past 12 Hours) Vital Signs Temp Pulse Pulse Resp BP Pulse Ox O2 Del Method 04/10/24 08:30 Room Air 04/10/24 08:15 36.7 C 59 L 19 144/86 H 92 Room Air 04/10/24 07:17 59 L 04/10/24 02:34 36.6 C 55 L 18 125/61 97 Room Air Lab & Micro Results (Past 24 Hours) RBC 4.09 M/uL (4.70-6.10) L 04/10/24 WBC 3.32 K/ul (4.8-10.8) L 04/10/24 Hgb 13.4 g/dl (14.0-18.0) L 04/10/24 Hct 39.1 % (42.0-52.0) L 04/10/24 MCV 95.6 fL (80.0-100.0) 04/10/24 MCH 32.8 pg (25.0-34.0) 04/10/24 MCHC 34.3 g/dL (32.0-36.0) 04/10/24 RDW Standard Deviation 46.1 fL (36.4-46.3) 04/10/24 RDW Coefficient of Variation 13.1 % (11.5-14.5) 04/10/24 Plt Count 110 K/uL (130-400) L 04/10/24 MPV 10.3 fL (9.4-12.4) 04/10/24 Neutrophils (%) (Auto) 42.2 % 04/10/24 Lymphocytes (%) (Auto) 31.9 % 04/10/24 Monocytes # (Auto) 0.66 K/uL (0.11-0.59) H 04/10/24 Eosinophils # (Auto) 0.15 K/uL (0.00-0.50) 04/10/24 Immature Granulocyte % (Auto) 0.3 % 04/10/24 Neutrophils # (Auto) 1.40 K/uL (1.40-6.50) 04/10/24 Lymphocytes # (Auto) 1.06 K/uL (1.20-3.40) L 04/10/24 Monocytes # (Auto) 0.66 K/uL (0.11-0.59) H 04/10/24 Eosinophils # (Auto) 0.15 K/uL (0.00-0.50) 04/10/24 Basophils # (Auto) 0.04 K/uL (0.00-0.20) 04/10/24 Immature Granulocyte # (Auto) 0.01 K/uL (0.01-0.20) 4 Na 140 mmol/L (136-145) 04/10/24 K 4.0 mmol/L (3.5-5.1) 04/10/24 Cl 108 mmol/L (98-107) H 04/10/24 CO2 28 mmol/L (21-32) 04/10/24 Anion Gap 4 (3-11) 04/10/24 BUN 19 mg/dl (6-23) 04/10/24 Creatinine 0.79 mg/dl (0.6-1.4) 04/10/24 BUN/Creatinine Ratio 24.1 (10-20) H 04/10/24 Glu 97 mg/dl (70-99(Fasting)) 04/10/24 Ca 9.2 mg/dl (8.6-10.3) 04/10/24 Phosphorus Level 3.8 mg/dl (2.5-4.9) 04/10/24 Total Bilirubin 0.8 mg/dl (0.2-1.0) 04/09/24 AST 24 U/L (13-39) 04/09/24 ALT 19 U/L (7-52) 04/09/24 Alkaline Phosphatase 74 U/L (34-104) 04/09/24 TP 7.4 gm/dl (6.0-8.3) 04/09/24 Albumin 3.5 gm/dl (3.4-5.0) 04/10/24 Globulin 3.0 gm/dl (2.5-4.0) 04/09/24 Albumin/Globulin Ratio 1.5 (0.9-2) 04/09/24 Mg 2.1 mg/dl (1.7-2.4) 04/10/24 06:28 Calcium Level 9.2 mg/dl (8.6-10.3) 04/10/24 06:28 Prothromb Time International Ratio 0.9 (0.9-1.1) 04/09/24 20:1 1 Diagnostic Findings (Past 24 Hours) Chest X-Ray 04/09/24 20:00 Exam(s): XR CXR 1 VIEW EXAM: XR Chest, 1 View CLINICAL HISTORY: Reason for exam: weakness. TECHNIQUE: Frontal view of the chest. COMPARISON: Prior chest x-ray from February 27, 2024. FINDINGS: Lungs: Mild to moderate peribronchial thickening of the central and lower lobe bronchi. No consolidation. Pleural space: Unremarkable. No pneumothorax. Heart: Unremarkable. No cardiomegaly. Mediastinum: Unremarkable. Normal mediastinal contour. Bones/joints: Unremarkable. No acute fracture. IMPRESSION: Bronchitis, which may be of infectious or inflammatory evidence. No consolidation or pleural effusion. Electronically signed by: Jojo Manzo MD 04/09/24 23:10 PM Chest X-Ray 04/10/24 09:45 SUPINE PORTABLE AP CHEST RADIOGRAPH CLINICAL HISTORY: Intubation. COMPARISON STUDY: Chest radiograph April 09, 2024. FINDINGS: Tip tip of the endotracheal tube is 5.4 cm above the yaneth. Electronic device projects over the left chest. There is a prosthetic cardiac valve. No pneumothorax or pleural effusion is identified on supine exam. There is no radiographic evidence for pulmonary edema. Bilateral perihilar interstitial prominence may be due to supine technique. IMPRESSION: 1. Tip of endotracheal tube 5.4 cm above the yaneth. 2. No radiographic evidence for pulmonary edema. No pneumothorax on supine exam. ACT 112: Negative or not required by law. Electronically signed by: Sammy Hayward M.D. 04/10/2024 10:04 AM I & O Totals 24 Hours 04/09/24 04/10/24 04/11/24 06:59 06:59 06:59 Intake Total 360 / 360 Output Total 2 / 2 Balance 358 / 358 Cumulative 04/09/24 19:41 thru 04/10/24 11:34 Intake Total 360 Output Total 2 Balance 358 RT Ventilator Mngmt (Last Documented) Ventilator Ordered Settings Respiratory Rate 19 04/10/24 08:15 Ventilator - PT Measurements Respiratory Rate 19 Coding Level of Care Code 72299 CRITICAL CARE 1ST 30-74M Diagnoses Heart block I45.9 HTN (hypertension) I10 S/P TAVR (transcatheter aortic valve replacement) Z95.2 Near syncope R55 Moderate obstructive sleep apnea G47.33
--- NOTE | 2024-04-10 12:20 | XRay Report ---
XR chest 1V portable CLINICAL HISTORY: hypoxia TECHNIQUE: Single frontal radiograph of the chest was obtained. Comparison: Comparison is made to chest radiograph 04/10/2024 FINDINGS: An implanted pacemaker is seen. The cardiomediastinal silhouette is normal. Right lower lung airspace opacity is seen. No evidence of pleural effusion or pneumothorax. IMPRESSION: Right lower lung airspace opacity. This may represent atelectasis, pneumonia, and/or aspiration. ACT 112: Negative or not required by law. Electronically signed by: Lui Toledo M.D. 04/10/2024 12:18 PM
[2024-04-10] MEDS: ICU Protocol for HYPERglycemia SCH (12:55)
[2024-04-10] MEDS: ASPIRIN 81 MG ECTAB PO SCH (13:19)
--- NOTE | 2024-04-10 16:20 | Electrocardiogram Report ---
Test Reason : Blood Pressure : */* mmHG Vent. Rate : 60 BPM Atrial Rate : 60 BPM P-R Int : 238 ms QRS Dur : 136 ms QT Int : 432 ms P-R-T Axes : 49 2 -13 degrees QTcB Int : 432 ms Sinus rhythm with 1st degree A-V block Right bundle branch block Abnormal ECG When compared with ECG of 09-Apr-2024 20:00, (unconfirmed) Right bundle branch block has replaced Non-specific intra-ventricular conduction block Confirmed by Robin Miller ([id number]) on 04/10/2024 4:20:02 PM Referred By: REFERRED SELF Confirmed By: Robin Miller
--- NOTE | 2024-04-10 16:25 | Electrocardiogram Report ---
Test Reason : Blood Pressure : */* mmHG Vent. Rate : 68 BPM Atrial Rate : 61 BPM P-R Int : * ms QRS Dur : 142 ms QT Int : 408 ms P-R-T Axes : * 5 40 degrees QTcB Int : 433 ms Atrial fibrillation with frequent ventricular-paced complexes Right bundle branch block Abnormal ECG Confirmed by Robin Miller ([id number] on 04/10/2024 4:25:30 PM Referred By: REFERRED SELF Confirmed By: Robin Miller
[2024-04-10] MEDS: ACETAMINOPHEN 325 MG TAB PO PRN (16:32)
[2024-04-10] MEDS: ceFAZolin 1000MG 1,000 MG/7.5 ML SYR IV ONE (17:29)
--- NOTE | 2024-04-10 17:49 | Electrocardiogram Report ---
Test Reason : Blood Pressure : */* mmHG Vent. Rate : 67 BPM Atrial Rate : 67 BPM P-R Int : 232 ms QRS Dur : 136 ms QT Int : 418 ms P-R-T Axes : 25 -11 5 degrees QTcB Int : 441 ms Sinus rhythm with 1st degree A-V block Right bundle branch block Abnormal ECG When compared with ECG of 03-Aug-2016 09:32, GA interval has increased QRS duration has increased Non-specific change in ST segment in Anterior leads Nonspecific T wave abnormality now evident in Anterior leads Confirmed by Robin Miller ([id number] on 04/10/2024 5:49:13 PM Referred By: REFERRED SELF Confirmed By: Robin Miller
--- NOTE | 2024-04-10 19:14 | Cardiology Consultation ---
Date of Consultation April 10, 2024 Assessment & Plan (1) S/P TAVR (transcatheter aortic valve replacement): (2) Heart block: Plan 1. Aortic stenosis: He appears to have undergone a successful percutaneous valve replacement. He does not appear to have hemodynamic compromise. Symptoms leading up to the replacement were fairly mild. No significant dyspnea or chest pain subsequently. 2. Complete heart block: He was noted at the time admission to have an element of AV node dysfunction with a first-degree AV block and right bundle branch block. Reportedly he had some brief periods of complete heart block and nursing to be some concern about conduction prior to discharge after his TAVR. He developed an extended episode of complete heart block with resultant ventricular asystole this morning. This required resuscitation. He appears of undergone successful implantation of a dual-chamber permanent pacemaker without evident complication. I think he is feeling well tomorrow, is pacing appropriately and there is no complication on x-ray he could be safely discharged home from my standpoint. He should refrain from lifting left arm above the shoulder behind the neck for 6 weeks. He should keep his Steri-Strips dry and the wound dry for 5 to 7 days. The outer bulky dressing can be removed in the morning. He can follow-up with [facility] cardiology in 1 week or in our clinic (his choice) History of Present Illness Reason for Consultation: Cardiac arrest, heart block Attending Physician: Mak Jansen History of Present Illness The patient is a 78-year-old gentleman with a history of severe aortic stenosis and nonobstructive coronary disease who underwent percutaneous replacement of the aortic valve on 04/05/2024 at [facility]. It seems that subsequent to the procedure there was some concern for bradycardia and high degree AV block. According to the the patient had a transvenous pacemaker subsequent to the procedure and was sent home with mobile cardiac telemetry. Yesterday the patient had several presyncopal episodes and was notified by the [facility] that he should proceed to the emergency room for an evaluation. Presumably this was for episodes of complete heart block. The patient initially headed towards [place], but due to a few presyncopal episodes in route he decided to come to [facility] as an alternative. At the time of his evaluation he was feeling well and his vital signs were normal. This morning he was noted on telemetry to have an episode of complete heart block lasting 28 seconds. This prompted an emergency evaluation and the patient underwent resuscitation. This included intubation, paralysis and temporary transcutaneous pacing. He was brought emergently to the electrophysiology lab where a permanent pacemaker was implanted. The patient was subsequently extubated. He was on temporary pressor support with epinephrine and this was also discontinued. At the time of my interview this evening the patient claimed to be feeling well. Minimal discomfort at the device implant site. No breathing difficulty. No chest pain. He has [facility] without notable symptoms. Allergies Allergy/AdvReac Type Severity Reaction Status Date / Time No Known Drug Allergies Allergy Verified 03/28/24 08:29 Home Medications Medication Instructions Recorded Confirmed Type sildenafil 50 mg tablet See Rx Instructions .Route 05/30/23 03/28/24 Rx .COMPLEX #6 tabs amlodipine 5 mg tablet 5 mg PO QAM #90 tabs 10/13/23 03/28/24 Rx levothyroxine 125 mcg tablet 125 mcg PO QAM #90 tabs 01/09/24 03/28/24 Rx rosuvastatin 20 mg tablet 20 mg PO DAILY 02/15/24 03/28/24 History amoxicillin 875 mg tablet 875 mg PO BID 5 days #10 tabs 03/28/24 03/28/24 Rx Patient History Medical History Chronic sinusitis Nasal septal deviation History of COVID-19 (07/2023) Symptoms resolved Chronic osteoarthritis Aortic stenosis Echo 02/09/24: Severe aortic stenosis (AVAI 0.55cm2, AV MG 42mmhg) Follows with Dr. Mensah Moderate obstructive sleep apnea Not currently using any device, unable to tolerate CPAP GERD (gastroesophageal reflux disease) Hypothyroidism History of radioactive iodine thyroid ablation Bruxism HLD (hyperlipidemia) Psoriasis Surgical History History of colonoscopy History of evacuation of hematoma Groin S/P knee surgery Right S/P inguinal hernia repair S/P hip replacement Left S/P cataract surgery Family History Father Acute myocardial infarction Hypertension Cardiac disorder Sister Thyroid disorder Son Epilepsy Daughter Von Willebrand disease, type I Other Myocardial infarction Denies family history of Ovarian cancer Prostate cancer Breast cancer Lung cancer Colorectal cancer Social History Smoking Status: Never smoker Second Hand Exposure: No; Do You Dip or Chew Tobacco: No; Hx Alcohol Use: Yes Alcohol type: beer Alcohol Intake Frequency: 4 or More x per/Week Hx Substance Use: No Preferred Language: Danish Communication Ability: Effective Visual Impairment: Limited Hearing Ability: Normal Personal Injury Litigation Paralegal Required: No Beliefs That Will Affect Care: Yazidism Yazidism Beliefs: Sabianism marital status: Current Living Situation: Spouse current occupational status: employed and retired 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 Mood and affect appeared normal. He answered all questions appropriately. HEENT: Pupils are equal and reactive to light and accommodation. Extraocular movements are intact. The sclerae are anicteric. Neuro: Cranial nerves intact Lungs: Clear to auscultation bilaterally. He has good air movement without use of accessory muscles. No rales wheezes or rhonchi. Chest: Device implant site without drainage or hematoma Cardiac: Heart demonstrates a regular rate and rhythm. Normal S1 and S2. Crescendo systolic murmur. Pulses: The patient has palpable radial pulses bilaterally that are equal in intensity Extremities: There was no evidence of hypoperfusion. There is no cyanosis or clubbing. There is no edema. Small amount of ecchymosis in both groins. Access sites well-healed. Very small hematoma in the left groin. No bruits on auscultation. Skin: I did not appreciate any rashes on examination today. Results & Data Vital Signs (Past 12 Hours) Vital Signs Temp Pulse Pulse Resp BP BP Pulse Ox 04/10/24 18:01 125/60 04/10/24 18:00 62 15 96 04/10/24 17:03 61 16 97 04/10/24 17:00 141/86 H 04/10/24 16:45 60 04/10/24 15:11 60 13 96 04/10/24 15:00 121/70 04/10/24 14:02 60 14 99 04/10/24 14:00 128/82 04/10/24 14:00 36.4 C L 04/10/24 14:00 60 14 128/82 96 04/10/24 13:00 60 13 98 04/10/24 13:00 125/76 04/10/24 12:15 60 9 L 97 04/10/24 12:00 66 13 96 04/10/24 12:00 116/73 04/10/24 12:00 60 04/10/24 11:48 133/74 04/10/24 11:48 64 14 04/10/24 11:45 04/10/24 11:30 36.4 C L 04/10/24 11:30 85 23 98 04/10/24 11:30 144/85 H 04/10/24 11:25 82 14 100 04/10/24 08:30 04/10/24 08:15 36.7 C 59 L 19 144/86 H 92 04/10/24 07:17 59 L O2 Del Method O2 Flow Rate FiO2 04/10/24 18:01 04/10/24 18:00 04/10/24 17:03 04/10/24 17:00 04/10/24 16:45 04/10/24 15:11 04/10/24 15:00 04/10/24 14:02 04/10/24 14:00 04/10/24 14:00 04/10/24 14:00 Room Air 04/10/24 13:00 04/10/24 13:00 04/10/24 12:15 04/10/24 12:00 04/10/24 12:00 04/10/24 12:00 04/10/24 11:48 04/10/24 11:48 04/10/24 11:45 Nasal Cannula 2 04/10/24 11:30 04/10/24 11:30 Nasal Cannula 2 04/10/24 11:30 04/10/24 11:25 100 04/10/24 08:30 Room Air 04/10/24 08:15 Room Air 04/10/24 07:17 Laboratory Results Abnormal Lab Results 12/04/09/24 04/09/24 20:11 20:49 22:20 WBC 4.05 L RBC 4.60 L Hgb 15.3 Hct 44.3 MCV 96.3 MCH 33.3 MCHC 34.5 RDW Std Deviation 46.6 H RDW Coeff of Stephania 13.2 Plt Count 110 L MPV 10.4 Immature Gran % (Auto) 0.2 Neut % (Auto) 48.9 Lymph % (Auto) 31.1 [place] % (Auto) 14.8 Eos % (Auto) 4.0 Baso % (Auto) 1.0 Neut # (Auto) 1.98 Lymph # (Auto) 1.26 [place] # (Auto) 0.60 H Eos # (Auto) 0.16 Baso # (Auto) 0.04 Immature Gran # (Auto) 0.01 PT 10.2 INR 0.9 APTT 31 PTT Ratio 1.2 Sodium 139 Potassium 4.0 Chloride 104 Carbon Dioxide 27 Anion Gap 8 BUN 21 Creatinine 0.87 Est Cr Clr Drug Dosing 72.3 eGFR 88.32 BUN/Creatinine Ratio 24.1 H Glucose 95 POC Glucose Calcium 9.6 Phosphorus Magnesium 2.1 Total Bilirubin 0.8 AST 24 ALT 19 Alkaline Phosphatase 74 Troponin I High Sens 24.5 H 20.8 H Total Protein 7.4 Albumin 4.4 Globulin 3.0 Albumin/Globulin Ratio 1.5 TSH 0.176 L Free T4 1.33 Urine Color Yellow Urine Appearance Clear Urine pH 5.5 Ur Specific [place] 1.019 Urine Protein Negative Urine Glucose (UA) Negative Urine Ketones Negative Urine Blood Negative Urine Nitrite Negative Urine Bilirubin Negative Urine Urobilinogen Negative Ur Leukocyte Esterase Negative Lyme Disease Screen Negative 04/10/24 04/10/24 04/10/24 06:28 09:11 12:33 WBC 3.32 L RBC 4.09 L Hgb 13.4 L Hct 39.1 L MCV 95.6 MCH 32.8 MCHC 34.3 RDW Std Deviation 46.1 RDW Coeff of Stephania 13.1 Plt Count 110 L MPV 10.3 Immature Gran % (Auto) 0.3 Neut % (Auto) 42.2 Lymph % (Auto) 31.9 [place] % (Auto) 19.9 Eos % (Auto) 4.5 Baso % (Auto) 1.2 Neut # (Auto) 1.40 Lymph # (Auto) 1.06 L [place] # (Auto) 0.66 H Eos # (Auto) 0.15 Baso # (Auto) 0.04 Immature Gran # (Auto) 0.01 PT INR APTT PTT Ratio Sodium 140 Potassium 4.0 Chloride 108 H Carbon Dioxide 28 Anion Gap 4 BUN 19 Creatinine 0.79 Est Cr Clr Drug Dosing 78.4 eGFR 90.93 BUN/Creatinine Ratio 24.1 H Glucose 97 POC Glucose 98 141 H Calcium 9.2 Phosphorus 3.8 Magnesium 2.1 Total Bilirubin AST ALT Alkaline Phosphatase Troponin I High Sens 20.2 H Total Protein Albumin 3.5 Globulin Albumin/Globulin Ratio TSH Free T4 Urine Color Urine Appearance Urine pH Ur Specific [place] Urine Protein Urine Glucose (UA) Urine Ketones Urine Blood Urine Nitrite Urine Bilirubin Urine Urobilinogen Ur Leukocyte Esterase Lyme Disease Screen 04/10/24 16:23 WBC RBC Hgb Hct MCV MCH MCHC RDW Std Deviation RDW Coeff of Stephania Plt Count MPV Immature Gran % (Auto) Neut % (Auto) Lymph % (Auto) [place] % (Auto) Eos % (Auto) Baso % (Auto) Neut # (Auto) Lymph # (Auto) [place] # (Auto) Eos # (Auto) Baso # (Auto) Immature Gran # (Auto) PT INR APTT PTT Ratio Sodium Potassium Chloride Carbon Dioxide Anion Gap BUN Creatinine Est Cr Clr Drug Dosing eGFR BUN/Creatinine Ratio Glucose POC Glucose 115 H Calcium Phosphorus Magnesium Total Bilirubin AST ALT Alkaline Phosphatase Troponin I High Sens Total Protein Albumin Globulin Albumin/Globulin Ratio TSH Free T4 Urine Color Urine Appearance Urine pH Ur Specific [place] Urine Protein Urine Glucose (UA) Urine Ketones Urine Blood Urine Nitrite Urine Bilirubin Urine Urobilinogen Ur Leukocyte Esterase Lyme Disease Screen Diagnostic Findings Chest x-ray obtained this afternoon demonstrated stable lead position without pneumothorax. PG Care Time/CCT Total # of Minutes Spent Total Time Spent with Patient: Total time spent is greater than 50% in coordination of care (as documented) at patient's floor/unit and/or counseling patient: Coding Level of Care Code 62921 INT INP/OBS CARE 3/75MIN Diagnoses S/P TAVR (transcatheter aortic valve replacement) Z95.2 Heart block I45.9
--- NOTE | 2024-04-10 19:52 | Communication Note ---
Date of Service: April 10, 2024 Discussed case with attending and bedside nurse at turnover. Patient reported some LEFT eye irritation earlier in the day. He was notably paralyzed during intubation earlier as well as on way to labourers where he received his PPM. - Patient reported it as a burning and tearing of his eye- however at this time he currently feels as this is "markedly improved from earlier" - Patient reports at this time no light sensitivity, no frequent tearing or burning - Eye glasses were removed and eye examined, no injectate, normal color and normal pupil and no blurred vision noted - Opted for wood's light examination with fluorescein strips as well- following irrigation of the strip, a few drops of the stain were dropped into the eye- ~1 min time alloted for absorption of the stain. Wood's light was used in [facility] room to evaluate the patient's eye. There was no area with absorbed stain that appeared yellow or or green on examination. Following the eye was irrigated lightly with drops until clear. Lights were turned on with no patient reporting no irritation post exam and vision normal. He did note some irritation with the fluorescein but quickly resolved. - Discussed findings with Attending- opt at this time for no further treatment. Carlos A ARRIETA ([facility]-)
--- NOTE | 2024-04-11 00:08 | Hospitalist Progress Note ---
Date of Service April 10, 2024 Assessment & Plan (1) Near syncope: (2) Heart block: (3) S/P TAVR (transcatheter aortic valve replacement): (4) HTN (hypertension): Plan Near syncope/heart block- Patient's heart monitoring service notified patient that he had heart block noted on his heart monitor, and that he was to attempt to get to [facility] for pacemaker placement. Patient had a more significant near syncopal episode, and thus presents to the ED at [facility] for assessment. Patient will be admitted to the PCU for monitoring, there is no sign of significant ectopy or heart block on EKG or monitor while in ED at this time Patient just had echocardiogram performed, and no additional need for echo at this time Patient is not on any negative inotropes Continue amlodipine 5 mg daily Of note, potassium 4.0, and magnesium 2.1 Troponin 24.7, and will repeat in the a.m. Consult cardiology If the patient has been uneventful evening, ongoing care and placement of pacemaker can be discussed in the a.m. with [facility] code caesar called on 04/10 temporary pacer pads placed; set rate to 100 as BP did not improve with 60 or 80. as patient in third degree heart block Transferred to ICU/optical lab technician for pacemaker. Status post TAVR 04/05/2024- Patient reports that he tolerated the procedure well Heart block likely a secondary complication Will continue to monitor on telemetry as noted Hypothyroidism- Continue levothyroxine Hyperlipidemia Continue rosuvastatin Admission and Anticipated Discharge Date Admission Date: April 10, 2024 Subjective Code caesar called as patient was in asystole/ third degree heart block. When arrived, patient snoring. Temporary pacer placed. Called cardiac alert. Called medical intern Physical Exam Physical Exam: The patient is snoring. HEENT--PERRL, EOMI, Neck--supple. No JVD Heart--bradycardia Lungs--clear bilaterally, no respiratory distress, no accessory muscle use. Abdomen--normal bowel sounds and soft. Nontender. Nondistended, no hernias or masses, no organomegaly. Extremities--no cyanosis or clubbing. No edema. There are good distal pulses b/l. Results & Data Results & Data Vital Signs (Past 12 Hours) Vital Signs Temp Pulse Resp BP Pulse Ox O2 Del Method 04/10/24 22:21 61 23 97 04/10/24 22:01 156/88 H 04/10/24 21:51 60 16 95 04/10/24 21:09 60 14 94 04/10/24 21:00 123/72 04/10/24 21:00 123/72 04/10/24 20:54 61 14 94 04/10/24 20:21 63 20 96 04/10/24 20:00 127/78 04/10/24 20:00 127/78 04/10/24 19:57 60 18 95 04/10/24 19:45 60 20 97 04/10/24 19:00 126/73 04/10/24 19:00 126/73 04/10/24 18:27 60 18 97 04/10/24 18:01 125/60 04/10/24 18:00 62 15 96 04/10/24 17:03 61 16 97 04/10/24 17:00 141/86 H 04/10/24 16:45 60 04/10/24 15:11 60 13 96 04/10/24 15:00 121/70 04/10/24 14:02 60 14 99 04/10/24 14:00 128/82 04/10/24 14:00 36.4 C L 04/10/24 14:00 60 14 128/82 96 Room Air 04/10/24 13:00 60 13 98 04/10/24 13:00 125/76 04/10/24 12:15 60 9 L 97 PG Care Time/CCT Total # of Minutes Spent Total Time Spent with Patient: Total time spent is greater than 50% in coordination of care (as documented) at patient's floor/unit and/or counseling patient: Critical Care Time: Yes Total Critical Care Time: 35 I have personally spent 35 minutes of critical care time in the direct management of this patient. This is a life/limb threatening event. This includes time spent evaluating patient, direct bedside care, chart review, placing orders, interpretation of diagnostic studies, discussion with consultants, patient, and/or family members regarding treatment decisions, as well as other required patient management activities. This time is exclusive of all separately billable procedures, and teaching time and separate from and in addition to any other critical care service time. Coding Level of Care Code 60614 SUB INP/OBS CARE 3/50MIN (25 - SIGNIFICANT, SEPARATELY IDENTIFIABLE ) Diagnoses Near syncope R55 Heart block I45.9 S/P TAVR (transcatheter aortic valve replacement) Z95.2 HTN (hypertension) I10 Additional Codes Critical Care Time - Critical Care Time: Yes ([id number])
--- NOTE | 2024-04-11 07:34 | Critical Care Progress Note ---
Date of Service April 11, 2024 Assessment & Plan (1) Heart block: Plan: Reason Critically Ill: Complete heart block status post TAVR PLAN: Neuro: Syncope: Resolved -Improved with permanent pacemaker Resp: Moderate obstructive sleep apnea -Records note inability to tolerate CPAP CV: Complete heart block -Permanent pacemaker inserted Hypertension -Amlodipine 5 mg ID: Afebrile GI/Nutrition: Dyslipidemia -Continue rosuvastatin Heme: Anemia NOS DVT prophylaxis: SCDs Endocrine: ICU hyperglycemia protocol Hypothyroid -Continue 125 mcg levothyroxine Vascular access: Peripheral IVs Code Status: Full code Disposition: Stable for downgrade versus discharge (2) HTN (hypertension): (3) S/P TAVR (transcatheter aortic valve replacement): (4) Near syncope: (5) Moderate obstructive sleep apnea: Admission and Anticipated Discharge Date Admission Date: April 10, 2024 Subjective No overnight events. Discussed eye pain which is since resolved. Reports he feels remarkably better, no chest pain no shortness of breath no lightheadedness. Physical Exam Physical Exam: General: Alert. nontoxic. Skin: Warm, dry, Head: Atraumatic Ears, nose, mouth and throat: airway patent Cardiovascular: Normal peripheral perfusion Respiratory: no respiratory distress Gastrointestinal: Non distended Musculoskeletal: No deformity Results & Data Results & Data Vital Signs (Past 12 Hours) Vital Signs Temp Pulse Resp BP Pulse Ox 04/11/24 05:12 60 16 94 04/11/24 05:04 145/77 H 04/11/24 05:04 145/77 H 04/11/24 04:57 60 11 L 95 04/11/24 04:00 142/76 H 04/11/24 04:00 142/76 H 04/11/24 04:00 142/76 H 04/11/24 04:00 142/76 H 04/11/24 04:00 60 25 H 95 04/11/24 04:00 36.8 C 04/11/24 03:03 60 13 94 04/11/24 03:00 137/79 04/11/24 03:00 137/79 04/11/24 02:51 60 13 94 04/11/24 02:00 60 19 94 04/11/24 02:00 129/76 04/11/24 02:00 129/76 04/11/24 02:00 129/76 04/11/24 01:00 160/84 H 04/11/24 01:00 63 20 96 04/11/24 00:00 36.7 C 04/11/24 00:00 60 04/11/24 00:00 134/80 04/11/24 00:00 60 17 94 04/10/24 23:00 60 13 94 04/10/24 22:21 61 23 97 04/10/24 22:01 156/88 H 04/10/24 21:51 60 16 95 04/10/24 21:09 60 14 94 04/10/24 21:00 123/72 04/10/24 21:00 123/72 04/10/24 20:54 61 14 94 04/10/24 20:21 63 20 96 04/10/24 20:00 127/78 04/10/24 20:00 127/78 04/10/24 19:57 60 18 95 04/10/24 19:45 60 20 97 Critical Care Results & Data Vital Signs (Past 12 Hours) Vital Signs Temp Pulse Resp BP Pulse Ox 04/11/24 05:12 60 16 94 04/11/24 05:04 145/77 H 04/11/24 05:04 145/77 H 04/11/24 04:57 60 11 L 95 04/11/24 04:00 142/76 H 04/11/24 04:00 142/76 H 04/11/24 04:00 142/76 H 04/11/24 04:00 142/76 H 04/11/24 04:00 60 25 H 95 04/11/24 04:00 36.8 C 04/11/24 03:03 60 13 94 04/11/24 03:00 137/79 04/11/24 03:00 137/79 04/11/24 02:51 60 13 94 04/11/24 02:00 60 19 94 04/11/24 02:00 129/76 04/11/24 02:00 129/76 04/11/24 02:00 129/76 04/11/24 01:00 160/84 H 04/11/24 01:00 63 20 96 04/11/24 00:00 36.7 C 04/11/24 00:00 60 04/11/24 00:00 134/80 04/11/24 00:00 60 17 94 04/10/24 23:00 60 13 94 04/10/24 22:21 61 23 97 04/10/24 22:01 156/88 H 04/10/24 21:51 60 16 95 04/10/24 21:09 60 14 94 04/10/24 21:00 123/72 04/10/24 21:00 123/72 04/10/24 20:54 61 14 94 04/10/24 20:21 63 20 96 04/10/24 20:00 127/78 04/10/24 20:00 127/78 04/10/24 19:57 60 18 95 04/10/24 19:45 60 20 97 Lab & Micro Results (Past 24 Hours) No Data to Display No Data to Display No Data to Display Diagnostic Findings (Past 24 Hours) Chest X-Ray 04/10/24 09:45 SUPINE PORTABLE AP CHEST RADIOGRAPH CLINICAL HISTORY: Intubation. COMPARISON STUDY: Chest radiograph April 09, 2024. FINDINGS: Tip tip of the endotracheal tube is 5.4 cm above the yaneth. Electronic device projects over the left chest. There is a prosthetic cardiac valve. No pneumothorax or pleural effusion is identified on supine exam. There is no radiographic evidence for pulmonary edema. Bilateral perihilar interstitial prominence may be due to supine technique. IMPRESSION: 1. Tip of endotracheal tube 5.4 cm above the yaneth. 2. No radiographic evidence for pulmonary edema. No pneumothorax on supine exam. ACT 112: Negative or not required by law. Electronically signed by: Sammy Hayward M.D. 04/10/2024 10:04 AM Chest X-Ray 04/10/24 11:39 XR chest 1V portable CLINICAL HISTORY: hypoxia TECHNIQUE: Single frontal radiograph of the chest was obtained. Comparison: Comparison is made to chest radiograph 04/10/2024 FINDINGS: An implanted pacemaker is seen. The cardiomediastinal silhouette is normal. Right lower lung airspace opacity is seen. No evidence of pleural effusion or pneumothorax. IMPRESSION: Right lower lung airspace opacity. This may represent atelectasis, pneumonia, and/or aspiration. ACT 112: Negative or not required by law. Electronically signed by: Lui Toledo M.D. 04/10/2024 12:18 PM I & O Totals 24 Hours 04/10/24 04/11/24 04/12/24 06:59 06:59 06:59 Intake Total 510 / 510 Output Total 753 / 753 Balance -243 / -243 Cumulative 04/09/24 19:41 thru 04/11/24 05:27 Intake Total 510 Output Total 753 Balance -243 RT Ventilator Mngmt (Last Documented) Ventilator Ordered Settings Ventilator Support Mode Assist Control 04/10/24 11:25 Respiratory Rate 16 04/11/24 05:12 Ventilator Tidal Volume 470 04/10/24 11:25 Setting Minute Ventilation 7.9 04/10/24 11:25 Positive End Expiratory 5 04/10/24 11:25 Pressure Fraction of Inspired Oxygen 100 04/10/24 11:25 Ventilator - PT Measurements Respiratory Rate 16 Exhaled Tidal Volume 696 Minute Ventilation 7.9 Peak Inspiratory Airway 11 Pressure Respiratory Cycle Inspiratory: 1:1.8 Expiratory Ratio Inspiratory Phase Time 1.0 End-Tidal CO2 39 Dynamic Lung Compliance 116.00 Normal Static Lung Compliance 50.00 Coding Level of Care Code 94940 SUB INP/OBS CARE /25MIN Diagnoses Heart block I45.9 HTN (hypertension) I10 S/P TAVR (transcatheter aortic valve replacement) Z95.2 Near syncope R55 Moderate obstructive sleep apnea G47.33
[2024-04-11 07:36] VITALS: O2SAT 96
--- NOTE | 2024-04-11 08:27 | XRay Report ---
EXAM: Radiographs of the Chest 2 Views INDICATION: Pacemaker placement. TECHNIQUE: Frontal and lateral views of the chest. COMPARISON: 04/09/2024 FINDINGS: Lungs and pleural spaces: No consolidation or pulmonary edema. No pleural effusion or pneumothorax. Heart: Stable shadow and aortic valve prosthetic stent. Interval placement of intact right atrial and ventricular pacing wires. Mediastinum: Normal contour. Bones/joints: No fracture, erosion or dislocation. IMPRESSION: Satisfactory appearance of cardiac pacing device. No pneumothorax. ACT 112: Negative or not required by law. Electronically signed by Nivia Mackenzie 04-11-2024 08:26 AM
[2024-04-11 08:40] VITALS: BP 167/90; RESP 13; TEMP 97.9
[2024-04-11 10:30] VITALS: PULSE 61
--- NOTE | 2024-04-11 10:45 | Discharge Summary ---
Discharge Summary Date of Service April 11, 2024 Principal Dx & Hospital Course #1 = Principal Diagnosis (1) Near syncope: (2) Heart block: (3) S/P TAVR (transcatheter aortic valve replacement): (4) HTN (hypertension): Plan Near syncope/heart block- Patient's heart monitoring service notified patient that he had heart block noted on his heart monitor, and that he was to attempt to get to [facility] for pacemaker placement. Patient had a more significant near syncopal episode, and thus presents to the ED at [facility] for assessment. Patient developed a third degree heart block and derick maynard was called. Patient had a dual chamber pacemaker placed. The following day on 04/11, patient was discharged home as his bradycardia and heart block was fixed by the implantation of the pacemaker. Status post TAVR 04/05/2024- Patient reports that he tolerated the procedure well Heart block likely a secondary complication Hypothyroidism- Continue levothyroxine Hyperlipidemia Continue rosuvastatin Admission HPI Per Admitting Provider The patient is a 78-year-old male with a past medical history including hypertension, hypothyroidism, hyperlipidemia, erectile dysfunction. Is status post TAVR performed on 04/05/2024 at [facility]. He reportedly had a temporary transvenous pacer, but was removed prior to discharge, as he was no longer having issues. Patient did have a monitor placed for continued evaluation while at [facility]. Patient reports that today he had a few episodes of feeling lightheaded or dizzy and like he was almost going to pass out. He did receive a call from the heart monitor system, who reports that he had a heart block, and that he was to go to [facility] to have a pacemaker placed. He reports that he had a near syncopal episode while driving, and presented to the emergency department at [facility] for assessment. He was advised to be admitted to [facility], monitored overnight, and further plans will be determined in the morning. Discharge Exam The patient is snoring. HEENT--PERRL, EOMI, Neck--supple. No JVD Heart--RRR NL S1S2 Lungs--clear bilaterally, no respiratory distress, no accessory muscle use. Abdomen--normal bowel sounds and soft. Nontender. Nondistended, no hernias or masses, no organomegaly. Extremities--no cyanosis or clubbing. No edema. There are good distal pulses b/l. Discharge Plan Discharge Items Patient Disposition: Home - Self-Care Reason For Visit: S/P TAVR 04/05, PRE SYNCOPE, NEW HEART BLOCK Discharge Diagnosis: new heart block Condition on Discharge: Fair Activity: Per Instructions section Activity Comment: No lifting left arm above shoulder behind neck for 6 weeks Lifting: No more than 10 pounds Lifting Comment: No more than 10 pounds with the left arm for 1 week Bathing: Keep incision dry Bathing Comment: Keep wound dry and Steri-Strips intact until follow-up Non-emergency contact: Primary Care Provider Call non-emergency contact if: you have any medication questions Follow-up/Referrals: Tirso Keane, [Primary Care Provider] - Diet: Regular Addtl Attending Provider Instructions: Recommend followup with your PCP in 1-2 weeks Recommend followup with Cardiology in 1 week with [facility] or [facility] Cardiology. You should refrain from lifting left arm above the shoulder behind the neck for 6 weeks. You should keep his Steri-Strips dry and the wound dry for 5 to 7 days. Ok to shower 24 hours after procedure. * Pat dry:After showering, pat the incision dry. * Avoid rubbing:Avoid rubbing the incision when washing. * Don't soak:Don't soak the incision in a bath, hot tub, pool, or other body of water for 2 weeks or until your doctor says it's okay. * Don't put on lotions or creams:Avoid using creams or lotions on the incision site. * Don't cover:Don't cover the incision with tape or bandages. Pending Studies at Discharge: No Stand-Alone Forms: My [facility] [employer], Smoking Cessation Medications and DC Order Prescriptions: New aspirin 81 mg Tablet,Delayed Release (Dr/Ec) 81 mg PO QAM Qty: 30 0RF Continued sildenafil 50 mg tablet See Rx Instructions .ROUTE .COMPLEX Qty: 6 5RF Dose Instruction: TAKE 1 TAB DAILY NEEDED FOR SEXUAL ACTIVITY Rx Instructions: TAKE 1 TAB DAILY NEEDED FOR SEXUAL ACTIVITY amlodipine 5 mg tablet 5 mg PO QAM Qty: 90 3RF levothyroxine 125 mcg tablet 125 mcg PO QAM Qty: 90 1RF rosuvastatin 20 mg tablet 20 mg PO DAILY amoxicillin 875 mg tablet 875 mg PO BID 5 Days Qty: 10 0RF Discharge Orders: Discharge Order (Routine); Ordered 04/11/24 Ordered By: Mak Jansen Admission Data Admit Date/Time: 04/10/24 09:25 Attending Provider: Mak Jansen Admit Provider: Mak Jansen Primary Care Provider: Tirso Keane Other Providers: Emil Mendoza; Robin Miller; Tirso Weems Other Interventions: Discharge Summary Assessment (RN) Last Done: 04/11/24 10:28 Hospital Stay Data Consultations 04/09/24 22:02 ED Decision to Admit Stat 04/09/24 23:24 Consult Cardiology Routine 04/10/24 09:25 Consult [facility]ender [facility] Up Tender Routine Procedures Performed Operation Date: 04/10/24 09:30 Actual Procedures p Pacer with A/V Leads (Dual) - Robin Miller MD Diagnostic Imagining Performed 04/10/24 09:45 EP Lab Images for PACS ONCE Pending Results Patient Have Any Pending Studies at Discharge: No Discharge Instructions Given to Patient (Per Discharging Provider) Recommend followup with your PCP in 1-2 weeks Recommend followup with Cardiology in 1 week with [facility] or [facility] Cardiology. You should refrain from lifting left arm above the shoulder behind the neck for 6 weeks. You should keep his Steri-Strips dry and the wound dry for 5 to 7 days. Ok to shower 24 hours after procedure. * Pat dry:After showering, pat the incision dry. * Avoid rubbing:Avoid rubbing the incision when washing. * Don't soak:Don't soak the incision in a bath, hot tub, pool, or other body of water for 2 weeks or until your doctor says it's okay. * Don't put on lotions or creams:Avoid using creams or lotions on the incision site. * Don't cover:Don't cover the incision with tape or bandages. Total Time Total Time Spent Total Time Spent (In Minutes): 32 Coding Level of Care Code 20746 INP/OBS DISCH >30 MIN Diagnoses Near syncope R55 Heart block I45.9 S/P TAVR (transcatheter aortic valve replacement) Z95.2 HTN (hypertension) I10
--- NOTE | 2024-04-11 10:55 | Cardiology Progress Note ---
Date of Service April 11, 2024 Assessment & Plan (1) S/P placement of cardiac pacemaker: (2) S/P TAVR (transcatheter aortic valve replacement): (3) Heart block: (4) HTN (hypertension): Plan Wound and chest x-ray unremarkable. Doing well from a cardiac standpoint, no barriers to discharge from a cardiac standpoint. Discussed postoperative care, further details as per Dr. Miller's cardiology consultation note. As noted, follow-up in [address] Mensah or [facility] cardiology (patient choice). Admission and Anticipated Discharge Date Admission Date: April 10, 2024 Subjective Doing well. Denies chest pain, dyspnea, palpitations, or lightheadedness. Telemetry shows predominantly atrial sensed ventricular paced rhythm, occasional atrial paced/ventricular paced. Chest x-ray was unremarkable. Physical Exam Physical Exam: No distress. Afebrile. BP normotensive to mildly hypertensive. Pulse 60 bpm and regular. Respirations 13 and unlabored. Skin: no ecchymoses or generalized lesions. HEENT: unremarkable. Neck: JVP at the clavicle at 90 degrees, no carotid bruits. Chest: Left subclavian pacemaker site clean and dry. Lungs: clear and equal breath sounds. Cardiac: regular rhythm, normal S1-2, no obvious murmur. Abdomen: benign. Extremities: no edema, pulses intact. Neurologic: normal affect and conversation, nonfocal. PG Care Time/CCT Total # of Minutes Spent Total Time Spent with Patient: Total time spent is greater than 50% in coordination of care (as documented) at patient's floor/unit and/or counseling patient: Coding Level of Care Code 75628 SUB INP/OBS CARE 2/35MIN Diagnoses S/P placement of cardiac pacemaker Z95.0 S/P TAVR (transcatheter aortic valve replacement) Z95.2 Heart block I45.9 HTN (hypertension) I10
--- NOTE | 2024-04-11 12:16 | Electrocardiogram Report ---
Test Reason : Blood Pressure : */* mmHG Vent. Rate : 60 BPM Atrial Rate : 60 BPM P-R Int : 192 ms QRS Dur : 106 ms QT Int : 410 ms P-R-T Axes : 110 -50 113 degrees QTcB Int : 410 ms AV dual-paced rhythm Abnormal ECG When compared with ECG of 10-Apr-2024 11:31, Vent. rate has decreased by 8 bpm Atrial fibrillation no longer present Confirmed by Jasper Bear ([id number]) on 04/11/2024 12:16:15 PM Referred By: REFERRED SELF Confirmed By: Jasper Bear
== END 2024-04-11 11:10 | disposition home or self-care (01) | DRG 244 ==
LOC: ED 19:41 → 2S 19:41 → SUATTDRO 22:35 → 2S 22:51 → 1E 04-10 11:58